=== PATIENT | male | born 1935 | race Caucasian/White ===

== ENCOUNTER 2016-08-30 12:09 | Inpatient (IN) | payer MEDICARE ==
[2016-08-30 12:43] LABS: Hematocrit 34 % (42-52); Hemoglobin 10.5 g/dl (14.0-18.0); Mean Corpuscular HGB Conc 31 g/dl (31-36); Mean Corpuscular Hemoglobin 23 pg (27-31); Mean Platelet Volume 8 um3 (7.4-10.4); Red Blood Count 4.53 10^6/ul (4.0-5.4); Red Cell Distribution Width 20 % (10.5-15); White Blood Count 8.7 10^3/ul (3.5-10.8)
[2016-08-30 12:44] LABS: Comments Flag Yes
[2016-08-30 12:45] LABS: Mean Corpuscular Volume 75 fL (80-94)
[2016-08-30 12:56] LABS: Albumin 3.5 g/dL (3.2-5.2); BUN/Creatinine Ratio 19.2 (8-20); Calcium 8.9 mg/dL (8.6-10.3); EGFR African American 29.9 (>60); EGFR Non-African American 23.2 (>60)
[2016-08-30 12:57] LABS: C Reactive Protein 57.15 mg/L (< 5.00); Globulin 3.5 g/dL (2-4); Total Bilirubin 0.5 mg/dL (0.2-1.0)
[2016-08-30 12:59] LABS: Potassium 2.7 mmol/L (3.5-5.0); Troponin I 0.07 ng/mL (<0.04)
--- NOTE | 2016-08-30 13:14 | RAD ---
INDICATION: Shortness of breath. COMPARISON: Comparison is made with a prior chest x-ray study from August 08, 2016. TECHNIQUE: AP and lateral views of the chest were obtained. FINDINGS: The heart is within normal limits in size. Mediastinal and hilar contours appear within normal limits. The lungs are underinflated. There are small bibasilar infiltrates present. No pleural effusion is seen. There is flattening of the diaphragms consistent with chronic obstructive pulmonary disease. IMPRESSION: EXPIRATORY EXAM, SMALL BIBASILAR INFILTRATES.
[2016-08-30] MEDS ORDERED: KCL 10 MEQ/50 ML IVPREMIX* 10 MEQ/50 ML BAG ONE (13:25)
[2016-08-30] MEDS ORDERED: Potassium Chlor TAB* 20 MEQ TAB.ER PO ONE (13:52)
[2016-08-30] MEDS ORDERED: KCL 10 MEQ/50 ML IVPREMIX* 10 MEQ/50 ML BAG IV SCH (14:00)
[2016-08-30] MEDS ORDERED: Levofloxacin 750 MG IVPREMIX(* 750 MG/150 ML BAG IVPB ONE (14:27)
[2016-08-30] MEDS ORDERED: Acetaminophen TAB* 325 MG PO PRN (14:52)
[2016-08-30] MEDS ORDERED: ALPRAZolam TAB* 0.5 MG PO PRN (14:54)
[2016-08-30] MEDS ORDERED: Montelukast Sodium TAB* 10 MG PO PRN (14:54)
[2016-08-30] MEDS ORDERED: Ipratropium 0.5MG/2.5ML NEB* 0.5 MG/2.5 ML NEB.SOLN INH PRN (14:54)
[2016-08-30] MEDS ORDERED: NS 0.9% 1000 ML* 1,000 ML IV SCH (15:00)
[2016-08-30] MEDS ORDERED: KCL 20 MEQ/100 ML IVPREMIX* 20 MEQ/100 ML BAG IV SCH (15:00)
[2016-08-30] MEDS ORDERED: Dextrose 50% Syringe 50 ML* 25 GM/50 ML SYRINGE IV PUSH PRN (15:06)
--- NOTE | 2016-08-30 15:40 | ED ---
Katya López Rebecca, scribed for Nicholas Linares MD on 08/30/16 at 1228 . Shortness of Breath - HPI Summary HPI Summary: Pt is an 80 y/o M BIBA who presents to ED c/o SOB. SOB began suddenly this morning and has been constant since onset. SOB characterized as mild dyspnea at rest. Sx aggravated and alleviated by nothing. Additionally c/o fevers. Son mentions that diabetic wounds on his LLE were debrided 6 days ago and today, the wound is warm. Pt is on 3L O2 per Os at home all the time. PMHx COPD, CHF, DM, hypokalemia. - History of Current Complaint Time Seen by Provider: 08/30/16 12:21 Hx Obtained From: Patient Onset/Duration: Sudden Onset, Still Present Timing: Constant Current Severity: Mild Dyspnea At: Rest Aggrevating Factors: Nothing Alleviating Factors: Nothing Associated Signs & Symptoms: Fever - Allergy/Home Medications Allergies/Adverse Reactions: Allergies Allergy/AdvReac Type Severity Reaction Status Date / Time Amoxicillin [From Augmentin] Allergy Unknown Unknown Verified 06/27/16 12:08 Reaction Details Clavulanic Acid Allergy Unknown Unknown Verified 06/27/16 12:08 [From Augmentin] Reaction Details Penicillins [PCN] Allergy Unknown Unknown Verified 06/27/16 12:08 Reaction Details Sulfa Drugs Allergy Unknown Unknown Verified 06/27/16 12:08 Reaction Details Home Medications: Home Medications Ipratropium 0.5MG/2.5ML NEB* [Atrovent 0.5 MG NEB.PAUL*] 0.5 mg INH Q6H PRN 08/30 [History Confirmed 08/30/16] predniSONE TAB* [Deltasone TAB*] 10 mg PO DAILY 08/30/16 [History Confirmed 01/09] PMH/Surg Hx/FS Hx/Imm Hx Endocrine/Hematology History: Reports: Hx Anticoagulant Therapy - COUMADIN, Hx Diabetes, Other Endocrine/Hematological Disorders - Hx hypokalemia Denies: Hx Thyroid Disease Cardiovascular History: Reports: Hx Congenital Heart Disease, Hx Congestive Heart Failure, Hx Deep Vein Thrombosis, Hx Hypertension, Hx Peripheral Vascular Disease, Other Cardiovascular Problems/Disorders - Afib, venous insufficiency Denies: Hx Pacemaker/ICD Respiratory History: Reports: Hx Asthma, Hx Chronic Obstructive Pulmonary Disease (COPD) - 3L O2 at home, Hx Pneumonia, Hx Pulmonary Embolism, Hx Sleep Apnea - bipap used at home Denies: Other Respiratory Problems/Disorders GI History: Reports: Hx Gastroesophageal Reflux Disease Denies: Other GI Disorders History: Reports: Hx Acute Renal Failure, Hx Benign Prostatic Hyperplasia - came in with catheter, Hx Chronic Renal Failure - STAGE 4, Hx Renal Disease Denies: Hx Dialysis, Other Problems/Disorders Musculoskeletal History: Reports: Hx Arthritis, Hx Back Problems - chronic back pain, Hx Gout, Other Musculoskeletal History - CHRONIC CELLULITIS Sensory History: Reports: Hx Contacts or Glasses, Hx Vision Problem, Hx Hearing Aid - REMOVED, Hx Hearing Problem Denies: Hx Deafness Opthamlomology History: Reports: Hx Contacts or Glasses, Hx Vision Problem Neurological History: Denies: Hx Dementia, Hx Seizures Psychiatric History: Reports: Hx Anxiety Denies: Hx Panic Disorder, Hx Substance Abuse, Other Psychiatric Issues/ Disorders - Surgical History Surgery Procedure, Year, and Place: SPHENOIDOTOMY 2008. CATARACT 2007. ETHMOIDECTOMY 2008. SINUSOTOMY 2008. 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 GENERAL: Patient is a well developed and nourished male with some distress secondary to the shortness of breath. However, he is able to speak in full sentences. HEAD AND FACE: Normocephalic and atraumatic. EYES: PERRLA, EOMI x 2, No injected conjunctiva. EARS: Decreased hearing. MOUTH: Dry oral mucosa. NECK: Supple, trachea is midline, no adenopathy, no JVD, no carotid bruit. CHEST: Symmetric, No intercostal or abdominal retraction, LUNGS: Bilateral basilar crackles CVS: RRR,, S1 and S2 present, no murmurs or gallops appreciated. ABDOMEN: Soft, non-tender. No signs of distention. Positive BS. No rebound, no guarding, and no masses palpated. EXTREMITIES: FROM in all major joints, no edema, no cyanosis or clubbing. NEURO: Alert and oriented x 3. No acute neurological deficits. Speech is normal and follows commands. SKIN: Dry and warm Triage Information Reviewed: Yes Vital Signs On Initial Exam: Initial Vitals Temp Pulse Resp BP Pulse Ox 98.4 F 87 20 110/59 99 08/30/16 12:10 08/30/16 12:10 08/30/16 12:10 08/30/16 12:10 08/30/16 12:10 Vital Signs Reviewed: Yes Diagnostics - Vital Signs Vital Signs Temp Pulse Resp BP Pulse Ox 08/30/16 12:10 98.4 F 87 20 110/59 99 - Laboratory Lab Results: Lab Results 08/30/16 Range/Units 12:25 WBC 8.7 (3.5-10.8) 10^3/ul RBC 4.53 (4.0-5.4) 10^6/ul Hgb 10.5 L (14.0-18.0) g/dl Hct 34 L (42-52) % MCV 75 L (80-94) fL MCH 23 L (27-31) pg MCHC 31 (31-36) g/dl RDW 20 H (10.5-15) % Plt Count 284 (150-450) 10^3/ul MPV 8 (7.4-10.4) um3 Neut % (Auto) 67.6 (38-83) % Lymph % (Auto) 10.3 L (25-47) % [place] % (Auto) 12.0 H (1-9) % Eos % (Auto) 9.6 H (0-6) % Baso % (Auto) 0.5 (0-2) % Absolute Neuts (auto) 5.9 (1.5-7.7) 10^3/ul Absolute Lymphs (auto) 0.9 L (1.0-4.8) 10^3/ul Absolute Monos (auto) 1.0 H (0-0.8) 10^3/ul Absolute Eos (auto) 0.8 H (0-0.6) 10^3/ul Absolute Basos (auto) 0 (0-0.2) 10^3/ul Absolute Nucleated RBC 0 10^3/ul Nucleated RBC % 0 Result Diagrams: 08/30/16 12:25 08/30/16 12:25 Lab Statement: Any lab studies that have been ordered have been reviewed, and results considered in the medical decision making process. - Radiology CXR Radiology Interpretation Completed By: Radiologist - EXPIRATORY EXAM, SMALL BIBASILAR INFILTRATES. - EKG 1212 Cardiac Rate: NL - 95 bpm EKG Rhythm: Atrial Fibrillation EKG Interpretation: No ST elevation Course/Dx - Course Assessment/Plan: 80 y/o M who presents to ED with a CC of SOB. Denies any CP or palpitations. Positive increase in temperature but no fever. He has Hx COPD and CHF. Test results within normal limits except for mild nemia, hypokalemia, and acute on chronic renal failure. Trop is 0.07 and c-reactive protein is 57.15. The CXR shows that the pt is having small bibasilar infiltrates, therefore pt was given levaquin. EKG shows atrial fibrillation, rate controlled. Due to elevated troponin, pt given ASA and at this time I disclosed my physical exam and findings w/ Dr. Yi who accepts pt for admission. Pt is hemodynamically stable and AxOx3. - Diagnoses Provider Diagnoses: Pneumonia, Elevated troponin, Hypokalemia - Physician Notifications Discussed Care of Patient With: Dr. Yi, hospitalist, who accepts pt for admission. Time Discussed With Above Provider: 13:08 Discharge - Discharge Plan Condition: Stable Disposition: ADMITTED TO [facility] The documentation as recorded by the Katya mercer Rebecca accurately reflects the service I personally performed and the decisions made by me, Nicholas Linares MD.
[2016-08-30 16:04] LABS: BUN/Creatinine Ratio 19.3 (8-20); Calcium 8.7 mg/dL (8.6-10.3); EGFR Non-African American 23.3 (>60); Potassium 2.8 mmol/L (3.5-5.0)
[2016-08-30 16:11] LABS: Urine Bacteria Absent (Absent); Urine Bilirubin Negative (Negative); Urine Glucose Negative (Negative); Urine Nitrite Negative (Negative)
[2016-08-30] MEDS ORDERED: KCL premix 10MEQ/50 ML x 1 TIME IV ONE (17:00)
[2016-08-30] MEDS: Azithromycin IV(*) 500 MG in NS 0.9% 250 ML* 250 ML IVPB SCH (18:08)
[2016-08-30] MEDS: Insulin GLARGINE(*) 1 UNITS UNIT SUBCUT SCH (18:13)
[2016-08-30] MEDS: Cephalexin CAP* 250 MG PO SCH ×2 (18:13→23:02)
[2016-08-30] MEDS: Insulin LISPRO* 1 UNITS UNIT SUBCUT SCH ×2 (18:13→23:24)
[2016-08-30] MEDS: Budesonide NEB* 0.25 MG/2 ML NEB.SOLN INH SCH (20:26)
[2016-08-30] MEDS ORDERED: Heparin VIAL(*) 5000 UNITS/ML VIAL (FIVE THOUSAND) SUBCUT SCH (22:00)
--- NOTE | 2016-08-30 22:17 | HP ---
HISTORY AND PHYSICAL: DATE OF ADMISSION: 08/30/16 PRIMARY CARE PHYSICIAN: Trinidad Colon MD CHIEF COMPLAINT: Shortness of breath. HISTORY OF PRESENT ILLNESS: Frank Desai is an 80-year-old male with chronic multiple comorbid conditions who was just recently discharged from our facility on 08/14/16 for left leg cellulitis. The patient had been having problems with weight loss, poor appetite, and increasing shortness of breath as well as nonproductive cough for the last couple of days. brought him to the hospital for evaluation. Here he appears to be dehydrated with acute renal failure. He also has symptoms of bronchitis and hypokalemia, which was severe with potassium of 2.7. He is going to be admitted to telemetry monitored bed. PAST MEDICAL HISTORY: 1. History of chronic atrial fibrillation, on Xarelto. 2. Diabetes type 2. 3. COPD, on oxygen at 2 L. 4. Obstructive sleep apnea, on BiPAP at night. 5. BPH. 6. History of DVT. 7. History of CHF with most recent transthoracic echocardiogram on 08/07/15 with EF noted to be greater than 65%. 8. Leg wounds noted in the left distal extremity in the recent past. The [facility]. 9. Hypertension. 10. Chronic kidney disease, stage 3, most likely due to diabetes. 11. Gout. MEDICATIONS: Included: 1. Keflex at unknown dose 4 times a day for the next couple of days. 2. BiPAP at night for obstructive sleep apnea. 3. Oxygen continuously at 2 L. 4. Prednisone 10 mg daily. 5. Terazosin 10 mg at bedtime. 6. Senna at bedtime p.r.n. 7. Xarelto 15 mg daily. 8. Potassium 20 mEq 3 times a day. 9. MiraLAX 17 g daily. 10. Morphine sulfate 20 mg/5 mL 5 to 20 mg every 1 hours p.r.n. 11. Singulair 10 mg daily. 12. Zaroxolyn 5 mg daily. 13. Mag-Ox 400 mg every other day. 14. Atrovent nebulizer 0.5 mg inhalation every 6 hours p.r.n. 15. Insulin glargine 30 units daily and in p.m. 16. Insulin Humulin R sliding scale. 17. Perforomist nebulizer 20 mcg nebulizer b.i.d. 18. Flonase nasal spray 2 sprays both nares daily. 19. Fatuma 180 mg daily. 20. Diltiazem CD 240 mg daily. 21. Vitamin D3 2000 units daily. 22. Bumex 2 mg b.i.d. 23. Budesonide 0.25 mg inhalation b.i.d. 24. Allopurinol 100 mg daily. 25. Albuterol nebulizer 4 times a day p.r.n. 26. Acetaminophen extra strength at 500 mg every 6 hours p.r.n. 27. Xanax 0.4 mg 4 times a day a p.r.n. FAMILY HISTORY: Reviewed. Father had history of throat cancer. SOCIAL HISTORY: The patient lives with his who is his surrogate. He is a do not resuscitate. He used to be on hospice in the year of 2015 at the beginning; that was discontinued in May 2016. The patient has history of no alcohol or drug use. He is currently not smoking. He has visiting nurses coming in to evaluate him on every other day. His ambulation is very limited and he ambulates with a walker 5 steps to the bedside commode and back. REVIEW OF SYSTEMS: Limited from the patient. The patient has chronically indwelling Bonilla. He had had poor appetite and lost weight about further unquantified as per . He has been complaining of shortness of breath and cough but that had been nonproductive. He denies any abdominal pain or diarrhea. He denies some chest pain. His leg was evaluated in [facility] a couple of days ago and has been healing well. He is still on Keflex. All the other remaining 14 systems were reviewed with the patient, but were otherwise negative. PHYSICAL EXAMINATION GENERAL: This is a pleasant 80-year-old male who is in no acute distress. The patient is alert and oriented x2. He does not remember the exact date, but he remembers the year of 2106. He is rather withdrawn historian and his contributes to most of the information provided. VITAL SIGNS: Blood pressure 110/59, heart rate of 87 and irregularly irregular , respiratory rate 20, oxygen saturation 99% on 4 L of oxygen, and temperature 98.4. HEENT: Head atraumatic, normocephalic. Eyes: Pupils are equal, round, and reactive to light and accommodation. Oropharynx clear. Mucosa dry. NECK: Supple. No JVD. No bruit bilaterally. RESPIRATORY: Distant breath sounds bilaterally with scattered scant wheezes in the bilateral upper lung roy. CARDIOVASCULAR: Irregularly irregular rhythm. No murmur. ABDOMEN: Protuberant, soft, and nontender. Bowel sounds are present in all quadrants. EXTREMITIES: There is bilateral chronic venous stasis edema and chronic venous stasis brownish discoloration of the skin. The patient has a small orifice of the wound of left anterior aspect of his distal leg of approximately 1 cm in diameter that is packed. There is no evidence of cellulitis. Pulses are poorly palpable, but present bilateral lower extremities on palpation of dorsalis pedis artery. There is no clubbing or cyanosis. NEUROLOGIC: Cranial nerves II through XII were grossly intact. Motor strength is 5/5 bilaterally. DIAGNOSTIC STUDIES/LABORATORY DATA: Showed sodium of 133, potassium of 2.7, chloride 95, carbon dioxide 33, BUN 51, and creatinine of 2.65. Liver functions were unremarkable. CRP of 57. Troponin of 0.07 as comparable with prior troponins of 0.06 and 0.05 in the past. Brain natriuretic peptide was 68. CBC: White blood cell count of 8.7, hemoglobin of 10.5, hematocrit of 34, MCV of 75, and platelets of 284. Urinalysis was not obtained yet. Portable chest x-ray was read by the radiologist as "expiratory exam, small bibasilar infiltrates." Patient's EKG showed atrial fibrillation with a heart rate of 95 beats per minute with incomplete right bundle-branch block and no acute ST changes. Comparing with the EKG from 08/09/16, the EKGs look similar. ASSESSMENT AND PLAN: 1. Overall decline and wellbeing clinically of this patient with multiple comorbid conditions: It appears that the patient may have a viral illness and bronchitis. The patient is going to be admitted to the hospital and placed on azithromycin for bronchitis. I do not believe that he is in chronic obstructive pulmonary disease exacerbation. His nebulizers are are going to be provided for his chronic obstructive pulmonary disease that appears stable. He does require 4 L of oxygen currently, which is going to be continued. 2. In regards to his acute renal failure and chronic kidney disease, stage 3 due to diabetes: It appears to be due to dehydration. That is going to be treated with intravenous hydration. 3. His hypokalemia is going to be treated with additional doses of potassium. 4. His leg wounds does not appear to be infected. I will continue Keflex for another 3 days. I will also ask [facility] to see patient for evaluation and repacking the wound. 5. In regards to his diabetes, the patient is going to continued on insulin sliding scale and insulin Lantus. 6. For obstructive sleep apnea, he is going to be placed on BiPAP at night. 7. For his troponin of 0.07, his EKG is unchanged and he has not been complaining of chest pain. He has a history of chronically elevated troponins in the past and no further evaluation is needed on this patient become symptomatic. 8. In regards to his atrial fibrillation, it is rate controlled on Cardizem, which is going to be continued. The patient is currently on Xarelto and I believe he should be on an agent that is more suitable for a patient with more profound renal insufficiency. The patient is going to be placed on Eliquis, so it was going to be discontinued. 9. For DVT prophylaxis, the patient is going to be continued on Eliquis as mentioned above. 10. The patient's code status is do not resuscitate and that was confirmed. 11. In regards to the patient's overall clinical status, the patient's is interested in hospice. We will ask palliative care consultation to evaluate patient. TIME SPENT: Approximately 75 minutes was spent on the admission of this patient , more than half the time was spent [id number] with the patient doing the interview and physical exam. CC: Trinidad Colon MD; Dr. Silva; Dr. Pryor* [id number]/[facility] #: [id number] [facility]
[2016-08-30] MEDS: Potassium Chlor TAB* 20 MEQ TAB.ER PO SCH (23:03)
[2016-08-30] MEDS: Terazosin CAP* 5 MG PO SCH (23:03)
[2016-08-30] MEDS: Docusate CAP* 100 MG PO SCH (23:03)
[2016-08-30] MEDS: Formoterol 20 MCG/2ML NEB (NF) 10 MCG/ML NEB.SOLN INH SCH (23:25)
[2016-08-31 05:54] LABS: Hematocrit 30 % (42-52); Hemoglobin 9.3 g/dl (14.0-18.0); Mean Corpuscular HGB Conc 31 g/dl (31-36); Mean Corpuscular Hemoglobin 24 pg (27-31); Mean Corpuscular Volume 75 fL (80-94); Mean Platelet Volume 8 um3 (7.4-10.4); Red Blood Count 3.95 10^6/ul (4.0-5.4); Red Cell Distribution Width 19 % (10.5-15)
[2016-08-31] MEDS: Insulin LISPRO* 1 UNITS UNIT SUBCUT SCH ×4 (08:21→21:47)
[2016-08-31] MEDS: Docusate CAP* 100 MG PO SCH ×2 (08:55→21:43)
[2016-08-31] MEDS: Potassium Chlor TAB* 20 MEQ TAB.ER PO SCH ×3 (08:55→21:44)
[2016-08-31] MEDS: Cephalexin CAP* 250 MG PO SCH ×4 (08:56→21:43)
[2016-08-31] MEDS: Diltiazem CD CAP* 240 MG PO SCH (08:56)
[2016-08-31] MEDS: Allopurinol TAB* 100 MG PO SCH (08:56)
[2016-08-31] MEDS: Apixaban* 2.5 MG TAB PO SCH ×2 (08:56→21:42)
[2016-08-31] MEDS ORDERED: predniSONE TAB* 10 MG PO SCH (09:00)
[2016-08-31] MEDS ORDERED: Metolazone TAB* 5 MG PO SCH (09:00)
[2016-08-31] MEDS ORDERED: Bumetanide TAB* 2 MG PO SCH (09:00)
[2016-08-31] MEDS: Polyethylene Glycol 3350* 17 GM PACKET PO SCH (09:02)
[2016-08-31] MEDS: Fluticasone NASAL SPRAY 50MCG* 16 gm SPRAY BTL BOTH NARES SCH (09:03)
[2016-08-31] MEDS: Budesonide NEB* 0.25 MG/2 ML NEB.SOLN INH SCH ×2 (09:10→21:13)
[2016-08-31] MEDS: Formoterol 20 MCG/2ML NEB (NF) 10 MCG/ML NEB.SOLN INH SCH ×2 (11:02→23:43)
[2016-08-31] MEDS: Albuterol 2.5 MG/3 ML NEB.SOL* (0.083%) INH PRN ×2 (11:38→21:23)
--- NOTE | 2016-08-31 13:19 | CONSULT ---
Palliative / Hospice Consult Ordering Provider: Myranda Yi Referal Reason: family requesting hospice evaluation - Subjective Code Status: DNR Advance Directives Location: In Chart MOLST Part A Completed: Yes - DNR Date: 08/25/15 MOLST Part E Completed:: Yes - DNI Date: 08/30/16 HCP Completed: Yes - History or Present Illness History or Present Illness: Frank Desai is an 80 yo man with multiple chronic illnesses who was admitted yesterday with bronchitis, acute renal failure secondary to deydration, hypokalemia, chronic leg wounds (followed by the wound clinic). PMH includes atrial fibrillation, DM type 2, COPD on 2L O2 at home, BALDOMERO on BiPAP at , CHF with EF >65%, CKD stage 3, gout. He was previously on hospice through [facility] in [facility] for some number of months in 2016 and was discharged. He has been hospitalized multiple times since then, 05/24 for sepsis , 07/13 for cellulitis, 08/08 for cellulitis, dehydration. This admission the pt 's requested a hospice evaluation and palliative care referral was made. This hx was obtained through my chart review. I evaluated pt in his room with his and grandson present. Pt was sitting up at the edge of the bed, eating his lunch with enthusiasm. He is KNIK and did not participate much in the conversation though he did report that he feels a bit better today, denies being SOB. His therefore gives most of the history. She says she is getting tired of all these trips to the hospital and it is hard on him. Trips to the wound center are also hard on him. She reports he is weak and SOB. He gets around the house via electric WC and can walk a few steps from bed to WC, for example. They have [facility] but no aide is available in her area although they have nursing visits 3x/week, there is no help with bathing him. The hospice nurse used to bathe him and this was very helpful. If he were to fall in the shower she wouldn't be able to stop it or to get him up. However, when I asked if they would be comfortable with not returning to the hospital they were ambivalent. Lab Values: Abnormal Lab Results 08/30/16 08/30/16 08/30/16 14:00 15:54 16:21 WBC RBC Hgb Hct MCV MCH MCHC RDW Plt Count MPV Neut % (Auto) Lymph % (Auto) [place] % (Auto) Eos % (Auto) Baso % (Auto) Absolute Neuts (auto) Absolute Lymphs (auto) Absolute Monos (auto) Absolute Eos (auto) Absolute Basos (auto) Absolute Nucleated RBC Nucleated RBC % Sodium 135 Potassium 2.8 L Chloride 93 L Carbon Dioxide 34 H Anion Gap 8 BUN 51 H Creatinine 2.64 H Est GFR ( Amer) 30.0 Est GFR (Non-Af Amer) 23.3 BUN/Creatinine Ratio 19.3 Glucose 99 POC Glucose (mg/dL) Calcium 8.7 Urine Color Yellow Urine Appearance Cloudy Urine pH 7.0 Ur Specific [place] 1.008 L Urine Protein Negative Urine Ketones Negative Urine Blood 1+ H Urine Nitrate Negative Urine Bilirubin Negative Urine Urobilinogen Negative Ur Leukocyte Esterase 2+ H Urine WBC (Auto) 2+(11-20/hpf) H Urine RBC (Auto) 1+(3-5/hpf) H Urine Bacteria Absent Urine Glucose Negative Influenza A (Rapid) Negative Influenza B (Rapid) Negative 08/30/16 08/30/16 08/31/16 17:24 21:09 05:27 WBC 8.0 RBC 3.95 L Hgb 9.3 L Hct 30 L MCV 75 L MCH 24 L MCHC 31 RDW 19 H Plt Count 248 MPV 8 Neut % (Auto) 65.1 Lymph % (Auto) 12.3 L [place] % (Auto) 10.6 H Eos % (Auto) 11.6 H Baso % (Auto) 0.4 Absolute Neuts (auto) 5.2 Absolute Lymphs (auto) 1.0 Absolute Monos (auto) 0.8 Absolute Eos (auto) 0.9 H Absolute Basos (auto) 0 Absolute Nucleated RBC 0.01 Nucleated RBC % 0.1 Sodium Potassium Chloride Carbon Dioxide Anion Gap BUN Creatinine Est GFR ( Amer) Est GFR (Non-Af Amer) BUN/Creatinine Ratio Glucose POC Glucose (mg/dL) 149 H 111 H Calcium Urine Color Urine Appearance Urine pH Ur Specific [place] Urine Protein Urine Ketones Urine Blood Urine Nitrate Urine Bilirubin Urine Urobilinogen Ur Leukocyte Esterase Urine WBC (Auto) Urine RBC (Auto) Urine Bacteria Urine Glucose Influenza A (Rapid) Influenza B (Rapid) 08/31/16 08/31/16 07:27 11:44 WBC RBC Hgb Hct MCV MCH MCHC RDW Plt Count MPV Neut % (Auto) Lymph % (Auto) [place] % (Auto) Eos % (Auto) Baso % (Auto) Absolute Neuts (auto) Absolute Lymphs (auto) Absolute Monos (auto) Absolute Eos (auto) Absolute Basos (auto) Absolute Nucleated RBC Nucleated RBC % Sodium Potassium Chloride Carbon Dioxide Anion Gap BUN Creatinine Est GFR ( Amer) Est GFR (Non-Af Amer) BUN/Creatinine Ratio Glucose POC Glucose (mg/dL) 100 127 H Calcium Urine Color Urine Appearance Urine pH Ur Specific [place] Urine Protein Urine Ketones Urine Blood Urine Nitrate Urine Bilirubin Urine Urobilinogen Ur Leukocyte Esterase Urine WBC (Auto) Urine RBC (Auto) Urine Bacteria Urine Glucose Influenza A (Rapid) Influenza B (Rapid) Laboratory Last Values WBC 8.0 10^3/ul (3.5-10.8) 08/31/16 05:27 RBC 3.95 10^6/ul (4.0-5.4) L 08/31/16 05:27 Hgb 9.3 g/dl (14.0-18.0) L 08/31/16 05:27 Hct 30 % (42-52) L 08/31/16 05:27 MCV 75 fL (80-94) L 08/31/16 05:27 MCH 24 pg (27-31) L 08/31/16 05:27 MCHC 31 g/dl (31-36) 08/31/16 05:27 RDW 19 % (10.5-15) H 08/31/16 05:27 Plt Count 248 10^3/ul (150-450) 08/31/16 05:27 MPV 8 um3 (7.4-10.4) 08/31/16 05:27 Neut % (Auto) 65.1 % (38-83) 08/31/16 05:27 Lymph % (Auto) 12.3 % (25-47) L 08/31/16 05:27 [place] % (Auto) 10.6 % (1-9) H 08/31/16 05:27 Eos % (Auto) 11.6 % (0-6) H 08/31/16 05:27 Baso % (Auto) 0.4 % (0-2) 08/31/16 05:27 Absolute Neuts (auto) 5.2 10^3/ul (1.5-7.7) 08/31/16 05:27 Absolute Lymphs (auto) 1.0 10^3/ul (1.0-4.8) 08/31/16 05:27 Absolute Monos (auto) 0.8 10^3/ul (0-0.8) 08/31/16 05:27 Absolute Eos (auto) 0.9 10^3/ul (0-0.6) H 08/31/16 05:27 Absolute Basos (auto) 0 10^3/ul (0-0.2) 08/31/16 05:27 Absolute Nucleated RBC 0.01 10^3/ul 08/31/16 05:27 Nucleated RBC % 0.1 08/31/16 05:27 INR (Anticoag Therapy) 1.87 (0.89-1.11) H 08/30/16 12:25 APTT 37.4 seconds (26.0-36.3) H 08/30/16 12:25 Sodium 135 mmol/L (133-145) 08/30/16 14:00 Potassium 2.8 mmol/L (3.5-5.0) L 08/30/16 14:00 Chloride 93 mmol/L (101-111) L 08/30/16 14:00 Carbon Dioxide 34 mmol/L (22-32) H 08/30/16 14:00 Anion Gap 8 mmol/L (2-11) 08/30/16 14:00 BUN 51 mg/dL (6-24) H 08/30/16 14:00 Creatinine 2.64 mg/dL (0.67-1.17) H 08/30/16 14:00 Est GFR ( Amer) 30.0 (>60) 08/30/16 14:00 Est GFR (Non-Af Amer) 23.3 (>60) 08/30/16 14:00 BUN/Creatinine Ratio 19.3 (8-20) 08/30/16 14:00 Glucose 99 mg/dL (70-100) 08/30/16 14:00 POC Glucose (mg/dL) 127 mg/dL (74-106) H 08/31/16 11:44 Lactic Acid 1.3 mmol/L (0.5-2.0) 08/30/16 12:25 Calcium 8.7 mg/dL (8.6-10.3) 08/30/16 14:00 Total Bilirubin 0.50 mg/dL (0.2-1.0) 08/30/16 12:25 AST 22 U/L (13-39) 08/30/16 12:25 ALT 12 U/L (7-52) 08/30/16 12:25 Alkaline Phosphatase 74 U/L (34-104) 08/30/16 12:25 Troponin I 0.07 ng/mL (<0.04) H* 08/30/16 12:25 C-Reactive Protein 57.15 mg/L (< 5.00) H 08/30/16 12:25 B-Natriuretic Peptide 68 pg/mL (-100) 08/30/16 12:25 Total Protein 7.0 g/dL (6.4-8.9) 08/30/16 12:25 Albumin 3.5 g/dL (3.2-5.2) 08/30/16 12:25 Globulin 3.5 g/dL (2-4) 08/30/16 12:25 Albumin/Globulin Ratio 1.0 (1-3) 08/30/16 12:25 Urine Color Yellow 08/30/16 15:54 Urine Appearance Cloudy 08/30/16 15:54 Urine pH 7.0 (5-9) 08/30/16 15:54 Ur Specific [place] 1.008 (1.010-1.030) L 08/30/16 15:54 Urine Protein Negative (Negative) 08/30/16 15:54 Urine Ketones Negative (Negative) 08/30/16 15:54 Urine Blood 1+ (Negative) H 08/30/16 15:54 Urine Nitrate Negative (Negative) 08/30/16 15:54 Urine Bilirubin Negative (Negative) 08/30/16 15:54 Urine Urobilinogen Negative (Negative) 08/30/16 15:54 Ur Leukocyte Esterase 2+ (Negative) H 08/30/16 15:54 Urine WBC (Auto) 2+(11-20/hpf) (Absent) H 08/30/16 15:54 Urine RBC (Auto) 1+(3-5/hpf) (Absent) H 08/30/16 15:54 Urine Bacteria Absent (Absent) 08/30/16 15:54 Urine Glucose Negative (Negative) 08/30/16 15:54 Influenza A (Rapid) Negative (Negative) 08/30/16 16:21 Influenza B (Rapid) Negative (Negative) 08/30/16 16:21 - Objective Active Medications: Acetaminophen (Tylenol Tab*) 650 mg PO Q4H PRN PRN Reason: FEVER/PAIN Albuterol (Ventolin 2.5 Mg/3 Ml Neb.Soco*) 2.5 mg INH QID PRN PRN Reason: SHORTNESS OF BREATH Last Admin: 08/31/16 11:38 Dose: 2.5 mg Allopurinol (Zyloprim Tab*) 100 mg PO DAILY [facility] Last Admin: 08/31/16 08:56 Dose: 100 mg Alprazolam (Xanax Tab*) 0.5 mg PO QID PRN PRN Reason: TREMORS Apixaban (Eliquis) 2.5 mg PO BID [facility] Last Admin: 08/31/16 08:56 Dose: 2.5 mg Budesonide (Pulmicort Neb*) 0.25 mg INH BID [facility] Last Admin: 08/31/16 09:10 Dose: 0.25 mg Bumetanide (Bumex Tab*) 2 mg PO BID [facility] Last Admin: 08/31/16 08:55 Dose: 2 mg Cephalexin HCl (Keflex Cap*) 250 mg PO QID [facility] Stop: 09/01/16 23:59 Last Admin: 08/31/16 08:56 Dose: 250 mg Dextrose (D50w Syringe 50 Ml*) 12.5 gm IV PUSH .FOR FS < 60 - SS PRN PRN Reason: FS < 60 Diltiazem HCl (Cardizem Cd Cap*) 240 mg PO QAM [facility] Last Admin: 08/31/16 08:56 Dose: 240 mg Docusate Sodium (Colace Cap*) 100 mg PO BID [facility] Last Admin: 08/31/16 08:55 Dose: 100 mg Fluticasone Propionate (Flonase Nasal [place] 50mcg*) 2 spray BOTH NARES DAILY [facility] Last Admin: 08/31/16 09:03 Dose: 2 spray Formoterol Fumarate (Perforomist Neb.Soln*(Nf)) 20 mcg INH BID [facility] Last Admin: 08/31/16 11:02 Dose: Not Given Azithromycin 500 mg/ Sodium (Chloride) 250 mls @ 250 mls/hr IVPB Q24H [facility] Last Admin: 08/30/16 18:08 Dose: 250 mls/hr Insulin Glargine (Lantus(*)) 30 units SUBCUT QPM [facility] Last Admin: 08/30/16 18:13 Dose: 30 units Insulin Human Lispro (Humalog*) 0 units SUBCUT ACHS [facility] PRN Reason: Protocol Last Admin: 08/31/16 13:02 Dose: Not Given Ipratropium [place] (Atrovent 0.5 Mg Neb.Soco*) 0.5 mg INH Q6H PRN PRN Reason: SOB/WHEEZING Magnesium Oxide (Magox 400 Tab*) 400 mg PO EVERY OTHER DAY [facility] Metolazone (Zaroxolyn Tab*) 5 mg PO QAM [facility] Last Admin: 08/31/16 08:56 Dose: 5 mg Montelukast Sodium (Singulair Tab*) 10 mg PO DAILY PRN PRN Reason: Allergy Symptoms Polyethylene Glycol/Electrolytes (Miralax*) 17 gm PO DAILY [facility] Last Admin: 08/31/16 09:02 Dose: 17 gm Potassium Chloride (Klor Con Er Tab*) 20 meq PO TID [facility] Last Admin: 08/31/16 08:55 Dose: 20 meq Prednisone (Deltasone Tab*) 10 mg PO DAILY [facility] Last Admin: 08/31/16 08:56 Dose: 10 mg Terazosin HCl (Hytrin Cap*) 10 mg PO BEDTIME [facility] Last Admin: 08/30/16 23:03 Dose: 10 mg Vital Signs: Vital Signs: Temp Pulse Resp BP Pulse Ox 99.1 F 84 26 122/63 96 08/31/16 07:41 08/31/16 11:40 08/31/16 11:40 08/31/16 07:41 08/31/16 11:40 Patient Weight: Weight 243 lb 4.8 oz Intake and Output: Intake & Output 08/29/16 08/30/16 08/31/16 09/01/16 06:59 06:59 06:59 06:59 Intake Total 2254 360 Output Total 425 Balance 1829 360 Weight 243 lb 4.8 oz Intake: IV Fluids 264 Potassium 64 IVPB 1290 ABX - AZITHROMYCIN 250 NS (0.9%) 990 Potassium 50 Oral 700 360 Output: [place] 425 Other: # Bowel Movements 0 ADLs: Meal Record Start: 08/30/16 16: 31 Freq: DAILY@0900,1400,1800 Status: Active Created 08/30/16 16:31 System (Rec: 08/30/16 16:31 System [id number]) Document 08/30/16 18:00 [id number] (Rec: 08/30/16 19:30 [id number]) Document 08/31/16 09:00 [id number] (Rec: 08/31/16 10:18 [id number]) Intake and Output Start: 08/30/16 12: 33 Freq: Status: Active Created 08/30/16 12:33 System (Rec: 08/30/16 12:33 System [id number]) Intake and Output Start: 08/30/16 16: 31 Freq: DAILY@0600,1400,2200 Status: Active Created 08/30/16 16:31 System (Rec: 08/30/16 16:31 System [id number]) Document 08/30/16 22:06 [id number] (Rec: 08/30/16 22:07 [id number] [id number]) Document 08/31/16 06:00 [id number] (Rec: 08/31/16 06:04 [id number]) General Impression: WNWD elderly man sitting at the edge of the bed, alert but vague, eating lunch. Head: Normal Eyes: No Scleral Icterus Ears/Nose/Mouth/Throat: Mucous Membranes Moist Neck: NL Appearance and Movements; NL JVP Cardiovascular: RRR Respiratory: - - Visibly dyspneic with eating; Lungs mildly diminished, occasional wheezes agustín Extremities: - - BLE edema, LL cellulitic - Assessment Assessment: 80 yo man with multiple chronic illnesses who was admitted yesterday with bronchitis, acute renal failure secondary to deydration, hypokalemia, chronic leg wounds (followed by the wound clinic). PMH includes atrial fibrillation, DM type 2, COPD on 2L O2 at home, BALDOMERO on BiPAP at HS, CHF with EF >65%, CKD stage 3 , gout. He has had almost monthly hospital admissions for the last 4 mos and is clearly chronically ill. I believe he is borderline appropriate for hospice. He would be an excellent candidate for an outpatient palliative program if such a thing existed. At this point I believe infection is the most likely thing to be a terminal event for him, though currently he has no infective process. They would have to agree not to hospitalize pt and they have not yet made this decision. - Plan Consult Plan (MU): Palliative Plan: With pt and his 's permission, I contacted [facility] and shared my opinion with them and requested an informational and evaluation after pt is discharged home next week. This will give them time to consider their goals of care and for the hospice to decide whether or not they would accept pt back or not. Will not plan to follow pt with you but the team will be happy to revisit if asked. Thank you for the referral. - Time On Unit Date of Evaluation: 08/31/16 Hospice Consult Time in: 12:20 Hospice Consult Time Out: 13:20 Hospice Consult Time Total: 60 > 50% of Time Spend In Counseling or Coordinating Care: Yes
[2016-08-31 14:49] LABS: BUN/Creatinine Ratio 18.5 (8-20); Calcium 8.6 mg/dL (8.6-10.3); EGFR African American 34.8 (>60); EGFR Non-African American 27.1 (>60); Potassium 3.6 mmol/L (3.5-5.0)
--- NOTE | 2016-08-31 15:11 | PN ---
Subjective Date of Service: 08/31/16 Interval History: Seen with at bedside remains drowsy but wakes easily and interacts +cough, non productive. Poor appetite no pain Objective Active Medications: Acetaminophen (Tylenol Tab*) 650 mg PO Q4H PRN PRN Reason: FEVER/PAIN Albuterol (Ventolin 2.5 Mg/3 Ml Neb.Soco*) 2.5 mg INH QID PRN PRN Reason: SHORTNESS OF BREATH Last Admin: 08/31/16 11:38 Dose: 2.5 mg Allopurinol (Zyloprim Tab*) 100 mg PO DAILY [facility] Last Admin: 08/31/16 08:56 Dose: 100 mg Alprazolam (Xanax Tab*) 0.5 mg PO QID PRN PRN Reason: TREMORS Apixaban (Eliquis) 2.5 mg PO BID [facility] Last Admin: 08/31/16 08:56 Dose: 2.5 mg Budesonide (Pulmicort Neb*) 0.25 mg INH BID [facility] Last Admin: 08/31/16 09:10 Dose: 0.25 mg Bumetanide (Bumex Tab*) 2 mg PO DAILY [facility] Cephalexin HCl (Keflex Cap*) 250 mg PO QID [facility] Stop: 09/01/16 23:59 Last Admin: 08/31/16 14:37 Dose: 250 mg Dextrose (D50w Syringe 50 Ml*) 12.5 gm IV PUSH .FOR FS < 60 - SS PRN PRN Reason: FS < 60 Diltiazem HCl (Cardizem Cd Cap*) 240 mg PO QAM [facility] Last Admin: 08/31/16 08:56 Dose: 240 mg Docusate Sodium (Colace Cap*) 100 mg PO BID [facility] Last Admin: 08/31/16 08:55 Dose: 100 mg Fluticasone Propionate (Flonase Nasal [place] 50mcg*) 2 spray BOTH NARES DAILY [facility] Last Admin: 08/31/16 09:03 Dose: 2 spray Formoterol Fumarate (Perforomist Neb.Soln*(Nf)) 20 mcg INH BID [facility] Last Admin: 08/31/16 11:02 Dose: Not Given Azithromycin 500 mg/ Sodium (Chloride) 250 mls @ 250 mls/hr IVPB Q24H [facility] Last Admin: 08/30/16 18:08 Dose: 250 mls/hr Insulin Glargine (Lantus(*)) 30 units SUBCUT QPM [facility] Last Admin: 08/30/16 18:13 Dose: 30 units Insulin Human Lispro (Humalog*) 0 units SUBCUT ACHS [facility] PRN Reason: Protocol Last Admin: 08/31/16 13:02 Dose: Not Given Ipratropium [place] (Atrovent 0.5 Mg Neb.Soco*) 0.5 mg INH Q6H PRN PRN Reason: SOB/WHEEZING Magnesium Oxide (Magox 400 Tab*) 400 mg PO EVERY OTHER DAY [facility] Methylprednisolone Sodium Succinate (Solu-Medrol*) 40 mg IV Q8H [facility] Montelukast Sodium (Singulair Tab*) 10 mg PO DAILY PRN PRN Reason: Allergy Symptoms Polyethylene Glycol/Electrolytes (Miralax*) 17 gm PO DAILY [facility] Last Admin: 08/31/16 09:02 Dose: 17 gm Potassium Chloride (Klor Con Er Tab*) 20 meq PO TID [facility] Last Admin: 08/31/16 14:37 Dose: 20 meq Terazosin HCl (Hytrin Cap*) 10 mg PO BEDTIME [facility] Last Admin: 08/30/16 23:03 Dose: 10 mg Vital Signs 08/30/16 08/30/16 08/30/16 15:30 15:54 16:00 Temperature 97.5 F Pulse Rate 83 81 74 Respiratory 19 20 24 Rate Blood Pressure 143/65 143/65 122/67 (mmHg) O2 Sat by Pulse 98 97 Oximetry 08/30/16 08/30/16 08/30/16 16:30 19:15 19:18 Temperature 97.5 F Pulse Rate 76 78 Respiratory 22 18 20 Rate Blood Pressure 127/64 109/60 (mmHg) O2 Sat by Pulse 100 99 Oximetry 08/30/16 08/30/16 08/30/16 19:35 20:00 20:27 Temperature 98.8 F Pulse Rate 77 74 Respiratory 22 22 22 Rate Blood Pressure 134/87 (mmHg) O2 Sat by Pulse 96 98 Oximetry 08/30/16 08/31/16 08/31/16 23:41 03:49 03:51 Temperature 97.7 F 98.4 F Pulse Rate 79 80 83 Respiratory 20 20 Rate Blood Pressure 121/63 91/58 111/58 (mmHg) O2 Sat by Pulse 99 98 100 Oximetry 08/31/16 08/31/16 08/31/16 07:41 08:00 09:11 Temperature 99.1 F Pulse Rate 82 98 Respiratory 18 18 26 Rate Blood Pressure 122/63 (mmHg) O2 Sat by Pulse 100 96 Oximetry 08/31/16 11:40 Temperature Pulse Rate 84 Respiratory 26 Rate Blood Pressure (mmHg) O2 Sat by Pulse 96 Oximetry Oxygen Devices in Use Now: Nasal Cannula - 3L Appearance: sitting up in bed, lethargic, NAD Eyes: No Scleral Icterus, PERRLA Ears/Nose/Mouth/Throat: - - dry mm Neck: NL Appearance and Movements; NL JVP, Trachea Midline Respiratory: Symmetrical Chest Expansion and Respiratory Effort, - - audible wheeze without stethescope, expiratory wheeze and diffuse rhonchi Cardiovascular: RRR Abdominal: NL Sounds; No Tenderness; No Distention, No Hepatosplenomegaly Extremities: - - 2+ le edema Skin: - - pretibial erythema, small left tibial wound packed Neurological: - - AOx1 to self Result Diagrams: 08/31/16 05:27 08/31/16 14:21 Additional Lab and Data: Lab Results 08/30/16 Range/Units 12:25 WBC 8.7 (3.5-10.8) 10^3/ul RBC 4.53 (4.0-5.4) 10^6/ul Hgb 10.5 L (14.0-18.0) g/dl Hct 34 L (42-52) % MCV 75 L (80-94) fL MCH 23 L (27-31) pg MCHC 31 (31-36) g/dl RDW 20 H (10.5-15) % Plt Count 284 (150-450) 10^3/ul MPV 8 (7.4-10.4) um3 Neut % (Auto) 67.6 (38-83) % Lymph % (Auto) 10.3 L (25-47) % Frio % (Auto) 12.0 H (1-9) % Eos % (Auto) 9.6 H (0-6) % Baso % (Auto) 0.5 (0-2) % Absolute Neuts (auto) 5.9 (1.5-7.7) 10^3/ul Absolute Lymphs (auto) 0.9 L (1.0-4.8) 10^3/ul Absolute Monos (auto) 1.0 H (0-0.8) 10^3/ul Absolute Eos (auto) 0.8 H (0-0.6) 10^3/ul Absolute Basos (auto) 0 (0-0.2) 10^3/ul Absolute Nucleated RBC 0 10^3/ul Nucleated RBC % 0 Microbiology and Other Data: Microbiology 08/30/16 14:04 Aerobic Blood Culture - Preliminary Blood Venous No Growth Day 1 Anaerobic Blood Culture - Preliminary No Growth Day 1 08/31/16 01:50 Gram Stain - Final Sputum 08/30/16 16:00 Influenza Types A,B Antigen (ROSANNE) - Final Nasal Specimen received for Influenza A/B Molecular testing Assess/Plan/Problems-Billing Assessment: 80 yo M h/o chf per report, chronic respiratory failure with h/o COPD per report , afib, recent admit with LLE cellulitis returning with increased SOB and failure to thrive at home - Patient Problems (1) Shortness of breath Comment: Suspect COPD exacerbation 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 Notable eosinophilia on CBC Check CT chest non/con IV steroids q8hrs hold PO steroids c/w keflex and azithro (2) Chronic respiratory failure Comment: home oxygen (3) PIERRE (acute kidney injury) Status: Acute Comment: on CKD. Decrease bumex from BID to once daily stop metolazone hsa had decreased PO intake (4) Hypokalemia Comment: In setting of volume contraction and multiple diuretics decrease bumex and stop metolazone replete PO TID and suppliment IV as needed (5) Afib Comment: Continue Cardizem and renally dosed Eliquis (6) DVT prophylaxis SNOMED Code(s): 149106673 Comment: Eliquis
--- NOTE | 2016-08-31 16:21 | RAD ---
INDICATION: Respiratory failure. History of COPD and CHF. COMPARISON: August 30, 2016 chest radiograph and August 17, 2013 CT. TECHNIQUE: Multidetector CT images were obtained from the lung apices to the upper abdomen. Evaluation of the viscera is limited without IV contrast. REPORT: Negative for central endobronchial lesions. Subsegmental atelectasis at the inferior lingula and basilar segments of the LEFT lower lobe with mild cardiomegaly and tortuous descending thoracic aorta resulting in volume loss. No alveolar consolidation concerning for pneumonia. Small calcified granuloma at the central LEFT upper lobe. No suspicious focal pulmonary lesion. Negative for pleural effusions. Negative for pneumothorax. Negative for thoracic lymphadenopathy. Mild cardiomegaly. Negative for pericardial effusion. Limited images through the upper abdomen are remarkable for partial fatty involution of the pancreas and a small splenule at the posterior medial margin of the spleen. Negative for suspicious osseous lesions or fracture. Multilevel segmental ossification of the anterior longitudinal ligament of the thoracic spine consistent with Diffuse Idiopathic Skeletal Hyperostosis (DISH). IMPRESSION: Mild LEFT basilar atelectasis. No compelling evidence for pneumonia or pulmonary edema.
[2016-08-31] MEDS: methylPREDNISolone SOD 40 MG* 1 ML VIAL IV SCH ×2 (16:38→23:52)
[2016-08-31] MEDS: Azithromycin IV(*) 500 MG in NS 0.9% 250 ML* 250 ML IVPB SCH (17:09)
[2016-08-31] MEDS: Insulin GLARGINE(*) 1 UNITS UNIT SUBCUT SCH (17:48)
[2016-08-31] MEDS: Azithromycin IV(*) 250 MG in NS 0.9% 250 ML* 250 ML IVPB SCH (17:59)
[2016-08-31] MEDS: Terazosin CAP* 5 MG PO SCH (21:45)
[2016-09-01 05:31] LABS: Comments Flag Yes; Hematocrit 32 % (42-52); Hemoglobin 9.7 g/dl (14.0-18.0); Mean Corpuscular HGB Conc 31 g/dl (31-36); Mean Corpuscular Hemoglobin 23 pg (27-31); Mean Corpuscular Volume 75 fL (80-94); Mean Platelet Volume 8 um3 (7.4-10.4); Red Blood Count 4.23 10^6/ul (4.0-5.4); Red Cell Distribution Width 19 % (10.5-15); White Blood Count 8.1 10^3/ul (3.5-10.8)
[2016-09-01 05:46] LABS: BUN/Creatinine Ratio 19.4 (8-20); Calcium 8.5 mg/dL (8.6-10.3); EGFR African American 37.8 (>60); EGFR Non-African American 29.4 (>60); Potassium 3.7 mmol/L (3.5-5.0)
[2016-09-01 05:54] LABS: Troponin I 0.08 ng/mL (<0.04)
[2016-09-01] MEDS: Bumetanide TAB* 2 MG PO SCH (08:29)
[2016-09-01] MEDS: Allopurinol TAB* 100 MG PO SCH (08:29)
[2016-09-01] MEDS: Apixaban* 2.5 MG TAB PO SCH ×2 (08:29→20:25)
[2016-09-01] MEDS: Diltiazem CD CAP* 240 MG PO SCH (08:29)
[2016-09-01] MEDS: Docusate CAP* 100 MG PO SCH ×2 (08:30→20:24)
[2016-09-01] MEDS: Potassium Chlor TAB* 20 MEQ TAB.ER PO SCH ×3 (08:30→20:23)
[2016-09-01] MEDS: Cephalexin CAP* 250 MG PO SCH ×4 (08:30→20:25)
[2016-09-01] MEDS: Magnesium Oxide TAB* 400 MG PO SCH (08:30)
[2016-09-01] MEDS: Polyethylene Glycol 3350* 17 GM PACKET PO SCH (08:33)
[2016-09-01] MEDS: methylPREDNISolone SOD 40 MG* 1 ML VIAL IV SCH ×3 (08:35→23:34)
[2016-09-01] MEDS: Fluticasone NASAL SPRAY 50MCG* 16 gm SPRAY BTL BOTH NARES SCH (08:35)
[2016-09-01] MEDS: Insulin LISPRO* 1 UNITS UNIT SUBCUT SCH ×4 (08:36→20:26)
[2016-09-01] MEDS: Budesonide NEB* 0.25 MG/2 ML NEB.SOLN INH SCH ×2 (09:14→20:29)
[2016-09-01] MEDS: Formoterol 20 MCG/2ML NEB (NF) 10 MCG/ML NEB.SOLN INH SCH (11:29)
--- NOTE | 2016-09-01 15:54 | PN ---
Subjective Date of Service: 09/01/16 Interval History: Seen with at bedside more awake and interactive today does not feel breathing is any better Appetite improved and eating more denies CP Objective Active Medications: Acetaminophen (Tylenol Tab*) 650 mg PO Q4H PRN PRN Reason: FEVER/PAIN Albuterol/Ipratropium (Duoneb Neb.Soco*) 1 neb INH [id number] AWAKE [facility] Allopurinol (Zyloprim Tab*) 100 mg PO DAILY [facility] Last Admin: 09/01/16 08:29 Dose: 100 mg Alprazolam (Xanax Tab*) 0.5 mg PO QID PRN PRN Reason: TREMORS Last Admin: 08/31/16 23:52 Dose: 0.5 mg Apixaban (Eliquis) 2.5 mg PO BID [facility] Last Admin: 09/01/16 08:29 Dose: 2.5 mg Budesonide (Pulmicort Neb*) 0.25 mg INH BID [facility] Last Admin: 09/01/16 09:14 Dose: 0.25 mg Bumetanide (Bumex Tab*) 2 mg PO DAILY [facility] Last Admin: 09/01/16 08:29 Dose: 2 mg Cephalexin HCl (Keflex Cap*) 250 mg PO QID [facility] Stop: 09/01/16 23:59 Last Admin: 09/01/16 12:23 Dose: 250 mg Dextrose (D50w Syringe 50 Ml*) 12.5 gm IV PUSH .FOR FS < 60 - SS PRN PRN Reason: FS < 60 Diltiazem HCl (Cardizem Cd Cap*) 240 mg PO QAM [facility] Last Admin: 09/01/16 08:29 Dose: 240 mg Docusate Sodium (Colace Cap*) 100 mg PO BID [facility] Last Admin: 09/01/16 08:30 Dose: 100 mg Fluticasone Propionate (Flonase Nasal [place] 50mcg*) 2 spray BOTH NARES DAILY [facility] Last Admin: 09/01/16 08:35 Dose: 2 spray Azithromycin 250 mg/ Sodium (Chloride) 250 mls @ 250 mls/hr IVPB Q24H [facility] Last Admin: 08/31/16 17:59 Dose: Not Given Insulin Glargine (Lantus(*)) 30 units SUBCUT QPM [facility] Last Admin: 08/31/16 17:48 Dose: 30 units Insulin Human Lispro (Humalog*) 0 units SUBCUT ACHS [facility] PRN Reason: Protocol Last Admin: 09/01/16 12:22 Dose: 4 unit Magnesium Oxide (Magox 400 Tab*) 400 mg PO EVERY OTHER DAY [facility] Last Admin: 09/01/16 08:30 Dose: 400 mg Methylprednisolone Sodium Succinate (Solu-Medrol*) 40 mg IV Q8H [facility] Last Admin: 09/01/16 08:35 Dose: 40 mg Montelukast Sodium (Singulair Tab*) 10 mg PO DAILY PRN PRN Reason: Allergy Symptoms Polyethylene Glycol/Electrolytes (Miralax*) 17 gm PO DAILY [facility] Last Admin: 09/01/16 08:33 Dose: 17 gm Potassium Chloride (Klor Con Er Tab*) 20 meq PO TID [facility] Last Admin: 09/01/16 14:02 Dose: 20 meq Terazosin HCl (Hytrin Cap*) 10 mg PO BEDTIME [facility] Last Admin: 08/31/16 21:45 Dose: 10 mg Vital Signs 08/31/16 08/31/16 08/31/16 19:16 20:00 21:14 Temperature Pulse Rate 73 71 Respiratory 18 18 23 Rate Blood Pressure 126/68 (mmHg) O2 Sat by Pulse 100 99 Oximetry 08/31/16 08/31/16 08/31/16 21:24 23:42 23:52 Temperature 97.7 F Pulse Rate 71 83 Respiratory 24 24 20 Rate Blood Pressure 141/76 (mmHg) O2 Sat by Pulse 94 98 Oximetry 09/01/16 09/01/16 09/01/16 01:52 03:31 07:29 Temperature 98.9 F 97.6 F Pulse Rate 80 69 Respiratory 19 19 16 Rate Blood Pressure 133/73 141/70 (mmHg) O2 Sat by Pulse 97 98 Oximetry 09/01/16 09/01/16 09/01/16 08:00 09:16 11:20 Temperature 97.4 F Pulse Rate 83 85 Respiratory 18 20 18 Rate Blood Pressure 134/57 (mmHg) O2 Sat by Pulse 98 97 Oximetry 09/01/16 15:11 Temperature Pulse Rate 79 Respiratory 20 Rate Blood Pressure 126/67 (mmHg) O2 Sat by Pulse 100 Oximetry Oxygen Devices in Use Now: Nasal Cannula - 3L Appearance: talks in complete sentences, NAD Eyes: No Scleral Icterus, PERRLA Ears/Nose/Mouth/Throat: Clear Oropharnyx, Mucous Membranes Moist Neck: NL Appearance and Movements; NL JVP, Trachea Midline Respiratory: Symmetrical Chest Expansion and Respiratory Effort, - - wheeze throughout b/l Cardiovascular: RRR Abdominal: NL Sounds; No Tenderness; No Distention, No Hepatosplenomegaly Extremities: - - 1+ LE edema Neurological: Alert and Oriented x 3 Result Diagrams: 09/01/16 05:11 09/01/16 05:11 Additional Lab and Data: Lab Results 08/30/16 Range/Units 12:25 WBC 8.7 (3.5-10.8) 10^3/ul RBC 4.53 (4.0-5.4) 10^6/ul Hgb 10.5 L (14.0-18.0) g/dl Hct 34 L (42-52) % MCV 75 L (80-94) fL MCH 23 L (27-31) pg MCHC 31 (31-36) g/dl RDW 20 H (10.5-15) % Plt Count 284 (150-450) 10^3/ul MPV 8 (7.4-10.4) um3 Neut % (Auto) 67.6 (38-83) % Lymph % (Auto) 10.3 L (25-47) % [place] % (Auto) 12.0 H (1-9) % Eos % (Auto) 9.6 H (0-6) % Baso % (Auto) 0.5 (0-2) % Absolute Neuts (auto) 5.9 (1.5-7.7) 10^3/ul Absolute Lymphs (auto) 0.9 L (1.0-4.8) 10^3/ul Absolute Monos (auto) 1.0 H (0-0.8) 10^3/ul Absolute Eos (auto) 0.8 H (0-0.6) 10^3/ul Absolute Basos (auto) 0 (0-0.2) 10^3/ul Absolute Nucleated RBC 0 10^3/ul Nucleated RBC % 0 Microbiology and Other Data: Microbiology 08/30/16 14:04 Aerobic Blood Culture - Preliminary Blood Venous No Growth Day 1 Anaerobic Blood Culture - Preliminary No Growth Day 1 08/31/16 01:50 Gram Stain - Final Sputum 08/30/16 16:00 Influenza Types A,B Antigen (ROSANNE) - Final Nasal Specimen received for Influenza A/B Molecular testing Assess/Plan/Problems-Billing Assessment: 80 yo M h/o chf per report, chronic respiratory failure with h/o COPD per report , afib, recent admit with LLE cellulitis returning with increased SOB and failure to thrive at home - Patient Problems (1) Shortness of breath Comment: Suspect COPD exacerbation 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 Notable eosinophilia on CBC CT chest unremarkable IV steroids q8hrs hold PO steroids start duoneb standing given continued extrensive wheeze c/w keflex and azithro (2) Chronic respiratory failure Comment: home oxygen (3) PIERRE (acute kidney injury) Status: Acute Comment: on CKD. Decrease bumex from BID to once daily 08/31/16 stop metolazone 08/31/16 has had decreased PO intake priorto hospital stay (4) Hypokalemia Comment: In setting of volume contraction and multiple diuretics decrease bumex and stop metolazone replete PO TID and suppliment IV as needed (5) Afib Comment: Continue Cardizem and renally dosed Eliquis (6) DVT prophylaxis Comment: Eliquis
[2016-09-01] MEDS: Albuterol/Ipratropium NEB.SOL* Albuterol 2.5 MG/Ipratropium 0.5 MG 3 ML INH SCH ×3 (16:09→22:41)
[2016-09-01] MEDS: Azithromycin IV(*) 250 MG in NS 0.9% 250 ML* 250 ML IVPB SCH (16:24)
[2016-09-01] MEDS: Insulin GLARGINE(*) 1 UNITS UNIT SUBCUT SCH (17:24)
[2016-09-01] MEDS: Terazosin CAP* 5 MG PO SCH (20:25)
[2016-09-02] MEDS: Albuterol/Ipratropium NEB.SOL* Albuterol 2.5 MG/Ipratropium 0.5 MG 3 ML INH SCH ×4 (03:00→16:18)
[2016-09-02 05:32] LABS: BUN/Creatinine Ratio 27.6 (8-20); Calcium 8.4 mg/dL (8.6-10.3); EGFR African American 45.2 (>60); EGFR Non-African American 35.2 (>60); Potassium 3.5 mmol/L (3.5-5.0)
[2016-09-02 05:43] LABS: Troponin I 0.07 ng/mL (<0.04)
[2016-09-02] MEDS: Budesonide NEB* 0.25 MG/2 ML NEB.SOLN INH SCH ×2 (07:48→20:58)
[2016-09-02] MEDS: Fluticasone NASAL SPRAY 50MCG* 16 gm SPRAY BTL BOTH NARES SCH (09:55)
[2016-09-02] MEDS: Bumetanide TAB* 2 MG PO SCH (09:55)
[2016-09-02] MEDS: Docusate CAP* 100 MG PO SCH ×2 (09:55→22:55)
[2016-09-02] MEDS: Potassium Chlor TAB* 20 MEQ TAB.ER PO SCH ×3 (09:55→22:54)
[2016-09-02] MEDS: Apixaban* 2.5 MG TAB PO SCH ×2 (09:55→22:54)
[2016-09-02] MEDS: Allopurinol TAB* 100 MG PO SCH (09:55)
[2016-09-02] MEDS: Diltiazem CD CAP* 240 MG PO SCH (09:55)
[2016-09-02] MEDS: methylPREDNISolone SOD 40 MG* 1 ML VIAL IV SCH ×3 (09:55→22:55)
[2016-09-02] MEDS: Polyethylene Glycol 3350* 17 GM PACKET PO SCH (09:56)
[2016-09-02] MEDS: Insulin LISPRO* 1 UNITS UNIT SUBCUT SCH ×4 (09:56→22:56)
[2016-09-02] MEDS ORDERED: Codeine TAB* 15 MG PO ONE ×2 (10:33)
--- NOTE | 2016-09-02 10:41 | ECHO ---
Patient: KEVIN VINES Rec#: [id number] : 1935 Date: 09/02/2016 Age: 80y Height: 177.8 cm / 70.0 in Weight: 105.23 kg / 231.9 lbs Sex: M BSA: 2.22 Room#: 445 Admit Date#: 08/30/2016 Type: Inpatient Referring: Pascual Moulton MD Reading: Jeremiah Vargas MD [employer] Manager: Radha Vasquez YANELY CC: Trinidad Colon MD Transthoracic Echocardiogram Indication: ACS/a-fib/COPD BP: 122/48 HR: 91 Rhythm: A-Fib Findings History: A-fib,DM,COPD with home oxygen,BALDOMERO with Bipap,DVT,HTN,CKD stage III,gout. Technical Comments: The study is technically limited due to the patient's history of COPD. Completed at 0902. Left Ventricle: The left ventricular chamber size is normal. Septal wall hypertrophy is observed. Global left ventricular wall motion and contractility are within normal limits. There is normal left ventricular systolic function. The estimated ejection fraction is 55-60%. The assessment of diastolic function is non-diagnostic. Left Atrium: The left atrium is mildly dilated. Right Ventricle: The right ventricular cavity size is normal. The right ventricular global systolic function is normal. Right Atrium: The right atrial cavity size is normal. Aortic Valve: The aortic valve is trileaflet. There is no evidence of aortic regurgitation. There is no evidence of aortic stenosis. Mitral Valve: The mitral valve leaflets are mildly thickened. There is a trace of mitral regurgitation. There is no evidence of mitral stenosis. Tricuspid Valve: The tricuspid valve leaflets are normal. There is mild to moderate tricuspid regurgitation. The right ventricular systolic pressure is estimated to be 45-50 mmHg. There is evidence of mild pulmonary hypertension. There is no tricuspid stenosis. Pulmonic Valve: The pulmonic valve appears normal. There is trace to mild pulmonic regurgitation. There is no pulmonic stenosis. Pericardium: A pericardial fat pad is visualized. Aorta: There is no dilatation of the ascending aorta. There is no dilatation of the aortic arch. There is mild dilatation of the aortic root. Pulmonary Artery: The main pulmonary artery appears normal. Venous: The inferior vena cava is dilated. There is an approximate 50% respiratory change in the inferior vena cava dimension. Conclusions Pt in A fib during study Global left ventricular wall motion and contractility are within normal limits. There is normal left ventricular systolic function. The estimated ejection fraction is 55-60%. The right ventricular global systolic function is normal. There is no evidence of aortic regurgitation. There is a trace of mitral regurgitation. There is mild to moderate tricuspid regurgitation. There is evidence of mild pulmonary hypertension. Compared to study of 08/26/15, there is little change Measurements Name Value Normal Range RVIDd (AP) 2D 3.4 cm (0.9 - 2.6) RVDdMajor (2D) 4 cm (2.2 - 4.4) RAd ISD 4CH 5.5 cm (3.4 - 4.9) RA (A4C)W 4.1 cm (2.9 - 4.6) IVSd (2D) 1.2 cm (0.6 - 1) LVPWd (2D) 1 cm (0.6 - 1) LVIDd (2D) 4.2 cm (3.6 - 5.4) LVIDs (2D) 3 cm - LV FS (2D) 30 % (25 - 45) Aortic Annulus 2 cm (1.4 - 2.6) Ao root diameter (2D) 3.6 cm (2.1 - 3.5) Ascending Ao 3.4 cm (2.1 - 3.4) Aortic arch 2.4 cm (1.8 - 3.4) Descending Ao 0.7 cm - LA dimension (AP) 2D 4.1 cm (2.3 - 3.8) LAd ISD 4CH 6.4 cm (2.9 - 5.3) LA ISD 4CH W 4 cm (2.5 - 4.5) Name Value Normal Range LA ESV SP 4CH (A/L) 55 ml - LA ESV SP 2CH (A/L) 74 ml - LA ESV BP (A/L) 64 ml - LA ESV BP (A/L) index 28.81 ml/m2 - LA ESV SP 4CH (MOD) 54 ml - LA ESV SP 2CH (MOD) 73 ml - Name Value Normal Range MV E-wave Vmax 1.3 m/sec - MV deceleration time 159 msec - LV septal e' Vmax 0.13 m/sec - LV lateral e' Vmax 0.12 m/sec - LV E:e' septal ratio 10 ratio - LV E:e' lateral ratio 10.83 ratio - Name Value Normal Range AV Vmax 1.6 m/sec - AV VTI 33 cm - AV peak gradient 10.54 mmHg - AV mean gradient 5.62 mmHg - LVOT Vmax 1.3 m/sec - LVOT VTI 26.4 cm - LVOT peak gradient 6.77 mmHg - LVOT mean gradient 3.06 mmHg - Name Value Normal Range TR Vmax 2.7 m/sec - TR peak gradient 30 mmHg - RAP 15 mmHg - RVSP 45 mmHg - IVC diameter 3 cm - Name Value Normal Range PV Vmax 1.2 m/sec - PV peak gradient 5.73 mmHg -
[2016-09-02] MEDS ORDERED: Albuterol/Ipratropium NEB.SOL* Albuterol 2.5 MG/Ipratropium 0.5 MG 3 ML INH PRN (17:01)
[2016-09-02] MEDS: Azithromycin IV(*) 250 MG in NS 0.9% 250 ML* 250 ML IVPB SCH (17:05)
--- NOTE | 2016-09-02 17:18 | PN ---
Subjective Date of Service: 09/02/16 Interval History: Seen and examined this AM cough increased but feels breathing is a little better Cough non productive denies SOB or CP Objective Active Medications: Acetaminophen (Tylenol Tab*) 650 mg PO Q4H PRN PRN Reason: FEVER/PAIN Albuterol/Ipratropium (Duoneb Neb.Soco*) 1 neb INH Q6H PRN PRN Reason: SOB/WHEEZING Allopurinol (Zyloprim Tab*) 100 mg PO DAILY [facility] Last Admin: 09/02/16 09:55 Dose: 100 mg Alprazolam (Xanax Tab*) 0.5 mg PO QID PRN PRN Reason: TREMORS Last Admin: 08/31/16 23:52 Dose: 0.5 mg Apixaban (Eliquis) 2.5 mg PO BID [facility] Last Admin: 09/02/16 09:55 Dose: 2.5 mg Benzonatate (Tessalon Cap*) 100 mg PO BID [facility] Budesonide (Pulmicort Neb*) 0.25 mg INH BID [facility] Last Admin: 09/02/16 07:48 Dose: 0.25 mg Bumetanide (Bumex Tab*) 2 mg PO DAILY [facility] Last Admin: 09/02/16 09:55 Dose: 2 mg Codeine Sulfate (Codeine Tab*) 15 mg PO BEDTIME [facility] Dextrose (D50w Syringe 50 Ml*) 12.5 gm IV PUSH .FOR FS < 60 - SS PRN PRN Reason: FS < 60 Diltiazem HCl (Cardizem Cd Cap*) 240 mg PO QAM [facility] Last Admin: 09/02/16 09:55 Dose: 240 mg Docusate Sodium (Colace Cap*) 100 mg PO BID [facility] Last Admin: 09/02/16 09:55 Dose: 100 mg Fluticasone Propionate (Flonase Nasal [place] 50mcg*) 2 spray BOTH NARES DAILY [facility] Last Admin: 09/02/16 09:55 Dose: 2 spray Azithromycin 250 mg/ Sodium (Chloride) 250 mls @ 250 mls/hr IVPB Q24H [facility] Last Admin: 09/02/16 17:05 Dose: 250 mls/hr Insulin Glargine (Lantus(*)) 30 units SUBCUT QPM [facility] Last Admin: 09/01/16 17:24 Dose: 30 units Insulin Human Lispro (Humalog*) 0 units SUBCUT ACHS [facility] PRN Reason: Protocol Last Admin: 09/02/16 12:56 Dose: 4 unit Magnesium Oxide (Magox 400 Tab*) 400 mg PO EVERY OTHER DAY [facility] Last Admin: 09/01/16 08:30 Dose: 400 mg Methylprednisolone Sodium Succinate (Solu-Medrol*) 40 mg IV Q8H [facility] Last Admin: 09/02/16 17:05 Dose: 40 mg Montelukast Sodium (Singulair Tab*) 10 mg PO DAILY PRN PRN Reason: Allergy Symptoms Polyethylene Glycol/Electrolytes (Miralax*) 17 gm PO DAILY [facility] Last Admin: 09/02/16 09:56 Dose: 17 gm Potassium Chloride (Klor Con Er Tab*) 20 meq PO TID [facility] Last Admin: 09/02/16 12:57 Dose: 20 meq Terazosin HCl (Hytrin Cap*) 10 mg PO BEDTIME [facility] Last Admin: 09/01/16 20:25 Dose: 10 mg Vital Signs 09/01/16 09/01/16 09/02/16 19:40 20:50 04:03 Temperature 97.6 F 98.2 F Pulse Rate 85 101 94 Respiratory 20 22 20 Rate Blood Pressure 126/73 122/48 (mmHg) O2 Sat by Pulse 100 97 100 Oximetry 09/02/16 09/02/16 09/02/16 07:14 07:51 08:00 Temperature 97.5 F Pulse Rate 80 74 Respiratory 20 16 16 Rate Blood Pressure 119/58 (mmHg) O2 Sat by Pulse 99 99 Oximetry 09/02/16 09/02/16 09/02/16 10:54 11:05 11:14 Temperature 97.5 F Pulse Rate 72 93 Respiratory 20 24 24 Rate Blood Pressure 111/51 (mmHg) O2 Sat by Pulse 99 98 Oximetry 09/02/16 09/02/16 09/02/16 13:05 16:19 17:10 Temperature Pulse Rate 70 78 Respiratory 20 16 16 Rate Blood Pressure (mmHg) O2 Sat by Pulse 100 97 Oximetry Oxygen Devices in Use Now: Nasal Cannula - 3L Appearance: lying 30 deg, NAD Eyes: No Scleral Icterus, PERRLA Ears/Nose/Mouth/Throat: Clear Oropharnyx, Mucous Membranes Moist Neck: NL Appearance and Movements; NL JVP, Trachea Midline Respiratory: Symmetrical Chest Expansion and Respiratory Effort, - - diffuse wheeze with resolution of rhonchi largely Cardiovascular: RRR Abdominal: NL Sounds; No Tenderness; No Distention, No Hepatosplenomegaly Extremities: - - 1+ edema b/l LE Skin: - - left ulcer with packing no surrounding erythema Neurological: Alert and Oriented x 3 Result Diagrams: 09/01/16 05:11 09/02/16 04:55 Additional Lab and Data: Lab Results 08/30/16 Range/Units 12:25 WBC 8.7 (3.5-10.8) 10^3/ul RBC 4.53 (4.0-5.4) 10^6/ul Hgb 10.5 L (14.0-18.0) g/dl Hct 34 L (42-52) % MCV 75 L (80-94) fL MCH 23 L (27-31) pg MCHC 31 (31-36) g/dl RDW 20 H (10.5-15) % Plt Count 284 (150-450) 10^3/ul MPV 8 (7.4-10.4) um3 Neut % (Auto) 67.6 (38-83) % Lymph % (Auto) 10.3 L (25-47) % [place] % (Auto) 12.0 H (1-9) % Eos % (Auto) 9.6 H (0-6) % Baso % (Auto) 0.5 (0-2) % Absolute Neuts (auto) 5.9 (1.5-7.7) 10^3/ul Absolute Lymphs (auto) 0.9 L (1.0-4.8) 10^3/ul Absolute Monos (auto) 1.0 H (0-0.8) 10^3/ul Absolute Eos (auto) 0.8 H (0-0.6) 10^3/ul Absolute Basos (auto) 0 (0-0.2) 10^3/ul Absolute Nucleated RBC 0 10^3/ul Nucleated RBC % 0 Microbiology and Other Data: Microbiology 08/30/16 14:04 Aerobic Blood Culture - Preliminary Blood Venous No Growth Day 1 Anaerobic Blood Culture - Preliminary No Growth Day 1 08/31/16 01:50 Gram Stain - Final Sputum 08/30/16 16:00 Influenza Types A,B Antigen (ROSANNE) - Final Nasal Specimen received for Influenza A/B Molecular testing Assess/Plan/Problems-Billing Assessment: 80 yo M h/o chf per report, chronic respiratory failure with h/o COPD per report , afib, recent admit with LLE cellulitis returning with increased SOB and failure to thrive at home - Patient Problems (1) Shortness of breath Comment: Suspect COPD exacerbation 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 Notable eosinophilia on CBC CT chest unremarkable IV steroids q8hrs holding home PO steroids change duoneb back to PRN c/w keflex and azithro add flutter valve codeine for cough this AM and again at bedtime tesslon BID (2) Chronic respiratory failure Comment: home oxygen (3) PIERRE (acute kidney injury) Status: Acute Comment: on CKD. Decrease bumex from BID to once daily 08/31/16 stop metolazone 08/31/16 has had decreased PO intake priorto hospital stay (4) Hypokalemia Comment: In setting of volume contraction and multiple diuretics decrease bumex and stop metolazone replete PO TID and suppliment IV as needed (5) Afib Comment: Continue Cardizem and renally dosed Eliquis (6) Elevated troponin Comment: stable TTE without RWMA no chest pain (7) DVT prophylaxis Comment: Eliquis
[2016-09-02] MEDS: Insulin GLARGINE(*) 1 UNITS UNIT SUBCUT SCH (18:07)
[2016-09-02] MEDS ORDERED: Codeine TAB* 15 MG PO SCH (21:00)
[2016-09-02] MEDS: Terazosin CAP* 5 MG PO SCH (22:54)
[2016-09-02] MEDS: Benzonatate CAP* 100 MG PO SCH (22:54)
[2016-09-03 06:29] LABS: BUN/Creatinine Ratio 32.4 (8-20); Calcium 8.2 mg/dL (8.6-10.3); EGFR African American 45.2 (>60); EGFR Non-African American 35.2 (>60); Potassium 3.6 mmol/L (3.5-5.0)
[2016-09-03 08:38] VITALS: BP 123/68
[2016-09-03] MEDS: Polyethylene Glycol 3350* 17 GM PACKET PO SCH (08:58)
[2016-09-03] MEDS: Bumetanide TAB* 2 MG PO SCH (08:59)
[2016-09-03] MEDS: Apixaban* 2.5 MG TAB PO SCH (08:59)
[2016-09-03] MEDS: Diltiazem CD CAP* 240 MG PO SCH (08:59)
[2016-09-03] MEDS: Docusate CAP* 100 MG PO SCH (08:59)
[2016-09-03] MEDS: Potassium Chlor TAB* 20 MEQ TAB.ER PO SCH ×2 (08:59→12:41)
[2016-09-03] MEDS: Benzonatate CAP* 100 MG PO SCH (08:59)
[2016-09-03] MEDS: Allopurinol TAB* 100 MG PO SCH (08:59)
[2016-09-03] MEDS: methylPREDNISolone SOD 40 MG* 1 ML VIAL IV SCH (09:00)
[2016-09-03] MEDS: Magnesium Oxide TAB* 400 MG PO SCH (09:00)
[2016-09-03] MEDS: Insulin LISPRO* 1 UNITS UNIT SUBCUT SCH ×2 (09:00→12:41)
[2016-09-03] MEDS: Fluticasone NASAL SPRAY 50MCG* 16 gm SPRAY BTL BOTH NARES SCH (09:01)
[2016-09-03] MEDS: Budesonide NEB* 0.25 MG/2 ML NEB.SOLN INH SCH ×2 (09:29→20:11)
--- NOTE | 2016-09-04 05:29 | DS ---
DISCHARGE SUMMARY: PRIMARY CARE PROVIDER: Trinidad Colon MD DATE OF ADMISSION: 08/30/16 DATE OF DISCHARGE: 09/03/16 PRIMARY DIAGNOSIS: Acute respiratory failure in the setting of severe bronchitis. SECONDARY DIAGNOSES: 1. Type 2 diabetes. 2. Chronic obstructive pulmonary disease. 3. Chronic respiratory failure. 4. Obstructive sleep apnea, on BiPAP. 5. History of deep vein thrombosis. 6. History of chronic atrial fibrillation, on Xarelto. 7. Acute kidney injury. 8. Hypertension. 9. CKD stage 3. 10. Gout. MEDICATIONS ON DISCHARGE: 1. Terazosin 10 mg at bedtime. 2. Humulin 0 to 10 mg 3 times a day with meals per home sliding scale. 3. Fatuma 180 mg daily. 4. Pulmicort 0.25 mg inhaled twice daily. 5. Vitamin D3 2000 international units daily. 6. Albuterol nebulizer 4 times a day as needed for shortness of breath or wheeze. 7. Xanax 0.5 mg 4 times a day as needed for anxiety. 8. Senna at bedtime as needed for constipation. 9. Xarelto 15 mg daily. Dose renally adjusted. 10. MiraLAX 17 g as needed for constipation. 11. Singulair 10 mg daily. 12. Fluticasone 2 sprays both nares daily. 13. Allopurinol 100 mg daily. 14. Magnesium oxide 400 mg every other day. 15. Ipratropium nebulizer every 6 hours as needed for shortness of breath or wheeze. 16. Insulin Lantus 30 units in the evening. 17. Prednisone 60 mg daily for 5 additional days, then resume prednisone 10 mg daily. 18. Morphine sulfate 5-20 mg as needed for shortness of breath or pain. 19. Potassium chloride 20 mEq 2 to 3 times a day. 20. Diltiazem CD 240 mg in the morning. 21. Acetaminophen 500 mg every 6 hours as needed for pain or fever. 22. Formoterol 20 mcg inhaled twice daily. 23. Codeine 15 mg at bedtime as needed for cough, 20 tabs dispensed. 24. Bumetanide 2 mg daily, decreased from 2 mg twice daily. 25. Tessalon capsules 100 mg twice daily as needed for cough. Please note metolazone was also discontinued. PERTINENT IMAGING PERFORMED DURING HOSPITAL STAY: 1. Chest CT: Impression: Mild left basilar atelectasis. No compelling evidence for pneumonia or pulmonary edema. 2. Transthoracic echocardiogram: Impression: Atrial fibrillation, left ventricular wall motion and contractility within normal limits with an LVEF estimated to be 55% to 60%. 3. Right ventricular global systolic function is normal. No evidence of AR, trace MR, mild to moderate TR. Evidence of mild pulmonary hypertension, little change compared to August 2015. HISTORY OF PRESENT ILLNESS AND HOSPITAL COURSE: This is a pleasant 80-year-old gentleman, past medical history as outlined in the history of present illness on the day of admission. Recent hospital stay in July for left leg cellulitis who has been in his usual state at home, developed increasing shortness of breath with a nonproductive cough. He was admitted to the hospital with acute on chronic respiratory failure and diffuse rhonchi throughout all lobes. He was started on prednisone with slow improvement. CAT scan did not indicate any pulmonary edema nor evidence of consolidation. Additionally, a transthoracic echocardiogram did not indicate worsening heart failure. If anything, it noted very mild systolic heart dysfunction with preserved diastolic function. It is my estimation that he has worsening diastolic dysfunction. calculated on transthoracic echocardiogram based on his need for daily diuretics in addition to his chronic lower extremity edema. In any case, he was maintained on steroids and his cough was suppressed with Tessalon as well as codeine as needed. His lungs cleared and he felt back to his baseline on the day of discharge. On the day of discharge, he had minimal rhonchi in the apex, improved from diffuse rhonchi throughout. He is out of bed and tolerating his diet. He was anxious to return home. I did discuss the possibility for palliative care and hospitalist at home. He was seen in conjunction with our palliative care team. At this time, he is being referred to [facility] to evaluate for his eligibility once he returns home. It is unclear at this time whether he or his would want to accept home hospice at this time. He has previously been on hospice prior to this admission. Reasons to return to the hospital including but not limited to worsening breathing, chest pain, shortness of breath, nausea, vomiting, lightheadedness, loss of consciousness, fever, chills, night sweats, inability to obtain or tolerate his medications, bleeding from any source, uncontrolled diarrhea discussed with patient and his . They acknowledged their understanding. TIME SPENT: Greater than 60 minutes were spent in discharge of this patient, greater than half was spent [id number] with the patient. CC: Trinidad Colon MD* [id number]/[facility] #: [id number] MTDD
== END 2016-09-03 16:20 | disposition home or self-care (01) | DRG 189 ==
LOC: ED 12:09 → MEDTELE 13:53
PROVIDERS: ADMIT Internal Medicine; ATTEND Internal Medicine
DX: J96.20 Acute and chronic respiratory failure, unspecified whether with hypoxia or hypercapnia (principal); N17.9 Acute kidney failure, unspecified; J44.0 Chronic obstructive pulmonary disease with (acute) lower respiratory infection; E11.22 Type 2 diabetes mellitus with diabetic chronic kidney disease; I13.0 Hypertensive heart and chronic kidney disease with heart failure and stage 1 through stage 4 chronic kidney disease, or unspecified chronic kidney disease; I50.20 Unspecified systolic (congestive) heart failure; I48.2 Chronic atrial fibrillation; E86.0 Dehydration; Z99.81 Dependence on supplemental oxygen; M10.9 Gout, unspecified; E87.6 Hypokalemia; J44.1 Chronic obstructive pulmonary disease with (acute) exacerbation; J20.9 Acute bronchitis, unspecified; G47.33 Obstructive sleep apnea (adult) (pediatric); N18.3 Chronic kidney disease, stage 3 (moderate); N40.0 Benign prostatic hyperplasia without lower urinary tract symptoms; S80.922A Unspecified superficial injury of left lower leg, initial encounter; X58.XXXA Exposure to other specified factors, initial encounter; I87.8 Other specified disorders of veins; Z79.01 Long term (current) use of anticoagulants; Z86.718 Personal history of other venous thrombosis and embolism; Z79.1 Long term (current) use of non-steroidal anti-inflammatories (NSAID); Z79.4 Long term (current) use of insulin; Z79.52 Long term (current) use of systemic steroids; Z79.899 Other long term (current) drug therapy; Z80.0 Family history of malignant neoplasm of digestive organs
CPT/HCPCS: 36415; 71020; 71250; 80048; 80053; 81003; 81015; 82947; 83605; 83880; 84484; 85025; 85610; 85730; 86140; 87040; 87070; 87086; 87205; 87502; 93005; 93306; 94640; 94660; 94664; 94760; A9270-GY; J0456; J2920; J3480; J7512

== ENCOUNTER 2016-09-25 06:39 | Inpatient (IN) | payer MEDICARE ==
--- NOTE | 2016-09-25 07:16 | ED ---
Tanja López Anna, scribed for Franky Nicole MD on 09/25/16 at 0704 . GI/ HPI - HPI Summary HPI Summary: Patient is an 80 y/o male coming to [facility] presenting with sudden onset of constant genitourinary pain that began after his catheter became caught on his wheelchair this morning. He now has blood in his tubing and bag, which he reports started this morning. He denies fever. Pt takes Xarelto. - History of Current Complaint Chief Complaint: EDUrogenitalProblems Time Seen by Provider: 09/25/16 07:00 Stated Complaint: CATH ISSUE Hx Obtained From: Patient Pain Intensity: 0 - Additional Pertinent History Primary Care Physician: ELIAS - Allergy/Home Medications Allergies/Adverse Reactions: Allergies Allergy/AdvReac Type Severity Reaction Status Date / Time Amoxicillin [From Augmentin] Allergy Unknown Unknown Verified 06/27/16 12:08 Reaction Details Clavulanic Acid Allergy Unknown Unknown Verified 06/27/16 12:08 [From Augmentin] Reaction Details Penicillins [PCN] Allergy Unknown Unknown Verified 06/27/16 12:08 Reaction Details Sulfa Drugs Allergy Unknown Unknown Verified 06/27/16 12:08 Reaction Details Home Medications: Home Medications Benzonatate CAP* [Tessalon CAP*] 100 mg PO TID PRN 09/25/16 [History Confirmed 09/25/16] Docusate CAP* [Colace Cap*] 100 - 200 mg PO DAILY 09/25/16 [History Confirmed ] Furosemide TAB* [Lasix TAB*] 80 mg PO BID 09/25/16 [History Confirmed 09/25/16] Ipratropium 0.5MG/2.5ML NEB* [Atrovent 0.5 MG NEB.PAUL*] 0.5 mg INH QID PRN 09/25 [History Confirmed 09/25/16] PMH/Surg Hx/FS Hx/Imm Hx Previously Healthy: No Endocrine/Hematology History: Reports: Hx Anticoagulant Therapy, Hx Diabetes, Other Endocrine/Hematological Disorders - Hx hypokalemia Denies: Hx Thyroid Disease Cardiovascular History: Reports: Hx Congenital Heart Disease, Hx Congestive Heart Failure, Hx Deep Vein Thrombosis, Hx Hypertension, Hx Peripheral Vascular Disease, Other Cardiovascular Problems/Disorders - venous insufficiency Denies: Hx Pacemaker/ICD Respiratory History: Reports: Hx Asthma, Hx Chronic Obstructive Pulmonary Disease (COPD) - 3L O2 at home, Hx Pneumonia, Hx Pulmonary Embolism, Hx Sleep Apnea - bipap used at home Denies: Other Respiratory Problems/Disorders GI History: Reports: Hx Gastroesophageal Reflux Disease Denies: Other GI Disorders History: Reports: Hx Acute Renal Failure, Hx Benign Prostatic Hyperplasia - chronic catheter, Hx Chronic Renal Failure, Hx Renal Disease Denies: Hx Dialysis, Other Problems/Disorders Musculoskeletal History: Reports: Hx Arthritis, Hx Back Problems - chronic back pain, Hx Gout, Other Musculoskeletal History - CHRONIC CELLULITIS Sensory History: Reports: Hx Contacts or Glasses, Hx Vision Problem, Hx Hearing Aid, Hx Hearing Problem Denies: Hx Deafness Opthamlomology History: Reports: Hx Contacts or Glasses, Hx Vision Problem Neurological History: Denies: Hx Dementia, Hx Seizures Psychiatric History: Reports: Hx Anxiety Denies: Hx Panic Disorder, Hx Substance Abuse, Other Psychiatric Issues/ Disorders - Surgical History Surgery Procedure, Year, and Place: SPHENOIDOTOMY 2008. CATARACT 2007. ETHMOIDECTOMY 2008. SINUSOTOMY 2008. HERNIA REPAIR Hx Anesthesia Reactions: No - Immunization History Date of Tetanus Vaccine: Unk Date of Influenza Vaccine: None Infectious Disease History: No Infectious Disease History: Denies: Hx Hepatitis, Hx Human Immunodeficiency Virus (HIV), Traveled Outside the [place] in Last 30 Days - Family History Known Family History: Positive: Diabetes, Other - Cancer - Social History Occupation: Retired Lives: With Family Alcohol Use: None Substance Use Type: Reports: None Smoking Status (MU): Never Smoked Tobacco Review of Systems Negative: Fever Positive: pain, other - bleeding All Other Systems Reviewed And Are Negative: Yes Physical Exam Triage Information Reviewed: Yes Vital Signs On Initial Exam: Initial Vitals Temp Pulse Resp BP Pulse Ox 99.7 F 109 16 135/68 98 09/25/16 06:42 09/25/16 06:42 09/25/16 06:42 09/25/16 06:42 09/25/16 06:42 Vital Signs Reviewed: Yes Appearance: Positive: No Pain Distress Skin: Positive: Warm ENT: Positive: Hearing grossly normal Neck: Positive: Supple Respiratory/Lung Sounds: Positive: Clear to Auscultation Abdomen Description: Positive: Nontender, Soft, Other: - suprapubic tenderness Bowel Sounds: Positive: Present Musculoskeletal: Positive: Strength/ROM Intact Diagnostics - Vital Signs Vital Signs Temp Pulse Resp BP Pulse Ox 01/31/17 06:42 99.7 F 109 16 135/68 98 - Laboratory Result Diagrams: 09/26/16 04:38 09/26/16 04:38 Lab Statement: Any lab studies that have been ordered have been reviewed, and results considered in the medical decision making process. GIGU Course/Dx - Course Assessment/Plan: Patient is an 80 y/o male coming to [facility] presenting with sudden onset of constant genitourinary bleeding that began after his catheter became caught on his wheelchair this morning. He now has blood in his tubing and bag, which he reports started this morning. He denies fever. Pt takes Xarelto. Patient will be signed out to Dr. Harris pending results of CBC, BMP , UA. - Diagnoses Provider Diagnoses: Sepsis Discharge - Discharge Plan Condition: Stable Disposition: ADMITTED TO [facility] Discharge Disposition Comment: Signed out to Dr. Harris, pending results of CBC, BMP, UA. The documentation as recorded by the Tanja mercer Anna accurately reflects the service I personally performed and the decisions made by , Franky Nicole MD.
[2016-09-25 08:51] LABS: Hematocrit 34 % (42-52); Hemoglobin 10.6 g/dl (14.0-18.0); Mean Corpuscular HGB Conc 32 g/dl (31-36); Mean Corpuscular Hemoglobin 23 pg (27-31); Mean Platelet Volume 8 um3 (7.4-10.4); Red Blood Count 4.63 10^6/ul (4.0-5.4); Red Cell Distribution Width 19 % (10.5-15); White Blood Count 17.7 10^3/ul (3.5-10.8)
[2016-09-25 09:00] LABS: Comments Flag Yes
[2016-09-25 09:03] LABS: Mean Corpuscular Volume 73 fL (80-94)
[2016-09-25 09:05] LABS: BUN/Creatinine Ratio 28.3 (8-20); EGFR African American 25.9 (>60); EGFR Non-African American 20.1 (>60)
[2016-09-25 09:07] LABS: Potassium 2.4 mmol/L (3.5-5.0)
[2016-09-25] MEDS ORDERED: Gentamicin ADULT (*) 40 MG/ML VIAL IVPB ONE (10:03)
[2016-09-25] MEDS ORDERED: NS 0.9% 1000 ML* 1,000 ML IV SCH ×3 (10:15→13:53)
--- NOTE | 2016-09-25 10:28 | RAD ---
INDICATION: Fever COMPARISON: August 30, 2016 TECHNIQUE: An AP portable view obtained at 0950 hours is submitted. FINDINGS: Bones/Soft Tissues: There are no acute bony findings. Cardiomediastinal: The cardiomediastinal silhouette is normal. Lungs: There are no infiltrates. Pleura: There are no pleural effusions. Other: None IMPRESSION: NO ACTIVE DISEASE
[2016-09-25 11:03] LABS: Urine Bacteria Absent (Absent); Urine Bilirubin Negative (Negative); Urine Glucose Negative (Negative); Urine Nitrite Negative (Negative)
[2016-09-25] MEDS ORDERED: Ondansetron INJ* 2 MG/ML VIAL IV PRN (11:28)
[2016-09-25] MEDS ORDERED: Dextrose 50% Syringe 50 ML* 25 GM/50 ML SYRINGE IV PUSH PRN (11:28)
[2016-09-25] MEDS ORDERED: Acetaminophen TAB* 325 MG PO PRN (11:28)
[2016-09-25] MEDS ORDERED: NS 0.9% 1000 ML* 1,000 ML IV ONE (11:28)
[2016-09-25] MEDS ORDERED: Potassium Chlor TAB* 20 MEQ TAB.ER PO ONE ×2 (11:35→20:26)
[2016-09-25] MEDS ORDERED: Albuterol 2.5 MG/3 ML NEB.SOL* (0.083%) INH PRN (11:39)
[2016-09-25] MEDS ORDERED: Diltiazem TAB* 60 MG PO ONE (11:41)
[2016-09-25] MEDS ORDERED: Montelukast Sodium TAB* 10 MG PO PRN (11:42)
[2016-09-25] MEDS ORDERED: ALPRAZolam TAB* 0.5 MG PO PRN (11:42)
[2016-09-25] MEDS ORDERED: Linezolid 600 MG IVPREMIX(*) 600 MG/300 ML BAG IVPB SCH (12:00)
--- NOTE | 2016-09-25 12:18 | ED ---
Tanja López Anna, scribed for Sharath Harris MD on 09/25/16 at 0923 . Progress - Progress Note Progress Note: Sign out patient from Dr. Nicole. The patient's urine has returned to yellow, straw color. He continues to bleed around the catheter site. Labs reveal low potassium level of 2.4, Creatinine level of 28.3, and WBC of 17.7. Pt now has a fever of 101.2 F. ADMIT HOSPITALIST GUARDED DX SEPSIS Course/Dx - Diagnoses Provider Diagnoses: Sepsis - Provider Notifications Discussed Care Of Patient With: Dr. Adamson (hospitalist) at 0935. Accepts patient for admission. Diagnostics - Vital Signs Vital Signs Temp Pulse Resp BP Pulse Ox 09/25/16 09:26 101.2 F 09/25/16 09:00 61 130/63 100 09/25/16 08:30 118 125/56 97 09/25/16 08:00 149/66 09/25/16 07:30 153/66 09/25/16 07:24 71 97 09/25/16 07:01 115 99 09/25/16 07:00 134/62 09/25/16 06:42 99.7 F 109 16 135/68 98 - Laboratory Lab Results: Lab Results 09/25/16 09/25/16 Range/Units 08:41 08:41 WBC 17.7 H (3.5-10.8) 10^3/ul RBC 4.63 (4.0-5.4) 10^6/ul Hgb 10.6 L (14.0-18.0) g/dl Hct 34 L (42-52) % MCV 73 L (80-94) fL MCH 23 L (27-31) pg MCHC 32 (31-36) g/dl RDW 19 H (10.5-15) % Plt Count 252 (150-450) 10^3/ul MPV 8 (7.4-10.4) um3 Neut % (Auto) 96.2 H (38-83) % Lymph % (Auto) 1.3 L (25-47) % Marion % (Auto) 0.5 L (1-9) % Eos % (Auto) 1.1 (0-6) % Baso % (Auto) 0.9 (0-2) % Absolute Neuts (auto) 17.0 H (1.5-7.7) 10^3/ul Absolute Lymphs (auto) 0.2 L (1.0-4.8) 10^3/ul Absolute Monos (auto) 0.1 (0-0.8) 10^3/ul Absolute Eos (auto) 0.2 (0-0.6) 10^3/ul Absolute Basos (auto) 0.2 (0-0.2) 10^3/ul Absolute Nucleated RBC 0 10^3/ul Nucleated RBC % 0 Sodium 132 L (133-145) mmol/L Potassium 2.4 L* (3.5-5.0) mmol/L Chloride 89 L (101-111) mmol/L Carbon Dioxide 32 (22-32) mmol/L Anion Gap 11 (2-11) mmol/L BUN 85 H (6-24) mg/dL Creatinine 3.00 H (0.67-1.17) mg/dL Est GFR ( Amer) 25.9 (>60) Est GFR (Non-Af Amer) 20.1 (>60) BUN/Creatinine Ratio 28.3 H (8-20) Glucose 88 (70-100) mg/dL Calcium 9.0 (8.6-10.3) mg/dL Result Diagrams: 09/25/16 08:41 09/25/16 08:41 Lab Statement: Any lab studies that have been ordered have been reviewed, and results considered in the medical decision making process. - Radiology CXR Xray Interpretation: No Acute Changes Radiology Interpretation Completed By: Radiologist - EKG 0918 Cardiac Rate: Tachycardia - 116 bpm EKG Rhythm: Atrial Fibrillation EKG Interpretation: No STEMI The documentation as recorded by the Tanja mercer Anna accurately reflects the service I personally performed and the decisions made by , Sharath Harris MD.
[2016-09-25] MEDS: KCL 20 MEQ/100 ML IVPREMIX* 20 MEQ/100 ML BAG IV SCH ×2 (12:36→15:03)
[2016-09-25] MEDS: Insulin LISPRO* 1 UNITS UNIT SUBCUT SCH ×2 (13:39→17:30)
[2016-09-25] MEDS: Potassium Chlor TAB* 20 MEQ TAB.ER PO SCH ×2 (13:40→20:44)
[2016-09-25] MEDS: Heparin VIAL(*) 5000 UNITS/ML VIAL (FIVE THOUSAND) SUBCUT SCH ×2 (13:41→22:05)
[2016-09-25] MEDS: predniSONE TAB* 10 MG PO SCH (13:44)
[2016-09-25] MEDS ORDERED: NS 0.9% 500 ML* 500 ML IV ONE (14:00)
--- NOTE | 2016-09-25 15:42 | HP ---
HISTORY AND PHYSICAL: DATE OF ADMISSION: 09/25/16 PRIMARY CARE PROVIDER: Dr. Trinidad Logan. ATTENDING PHYSICIAN WHILE IN THE HOSPITAL: Dr. Carolyn Adamosn *(report dictated by Shahbaz Groves NP) CHIEF COMPLAINT: 1. Hematuria. 2. Lower abdominal pain. HISTORY OF PRESENT ILLNESS: Mr. Desai is an 80-year-old male patient with multiple medical problems, history of AFib; diabetes; COPD; BALDOMERO; history of BPH , he has a chronic catheter for that; history of DVT; in addition to this, history of CHF; hypertension; CKD, stage 3; gout. He comes in today stating that his catheter was hooked to the end of his hospital bed. He went to get up and he had forgotten about that, he got tangled up on the tubing and had pulled. Shortly thereafter, he started having lower pelvic pain, he was having hematuria. His had given him a dose of morphine for the pain. They tried getting in touch with his on-call nurse, but they were unable to. The pain was continuing and there was still significant amount of hematuria. However, his called 911 and was brought into the hospital. The patient states that he had no pain prior to this. He denies having any shortness of breath. His breathing through the right naris is at baseline. He denies having any nausea, vomiting, or diarrhea. He denies having any chest pain. Denies any orthopnea. He says that the discomfort really started after. The said that his catheter appeared to be draining, but it was mostly bloody. The patient denies having any sore throat, runny nose. Denies having any cough recently. He had a recent change of medication; he recently was put on 80 mg b.i.d. of Lasix, says he has been taking as this prescribed along with 3 times a day potassium, which is the only change in his meds. There were no reported fevers or chills. He came in to the hospital. His catheter was changed out, the urine cleared. Repeat vitals, however, found that he had a fever of 102, in addition to this. At that point, labs were obtained and he had a white count of 17,000. Hospitalist service was asked to evaluate for admission. PAST MEDICAL HISTORY: Significant for: 1. AFib. 2. Diabetes. 3. COPD. 4. BALDOMERO. 5. BPH. 6. History of DVT. 7. History of CHF. 8. Hypertension. 9. CKD, stage 3. 10. Gout. PAST SURGICAL HISTORY: He has had a hernia repair. HOME MEDICATIONS: Include: 1. Hytrin 10 mg at bedtime. 2. Pulmicort 0.25 mg inhaled b.i.d. 3. Vitamin D3 2000 units p.o. daily. 4. Ventolin 2.5 mg inhaled four times a day as needed. 5. Xanax 0.5 mg p.o. four times a day as needed. 6. Xarelto 15 mg p.o. daily. 7. MiraLAX 17 g p.o. daily. 8. Singulair 10 mg p.o. daily as needed. 9. Humulin 0 to 10 units subcu t.i.d. sliding scale before meals. 10. Colace 100 to 200 mg daily. 11. Lantus 30 units subcu at bedtime. 12. Flonase 2 sprays both nares daily. 13. Allopurinol 100 mg daily. 14. Atrovent 0.5 mg inhaled four times a day as needed. 15. Prednisone 10 mg daily. 16. Morphine 5 to 20 mg p.o. every hour as needed. 17. Perforomist 20 mcg inhaled b.i.d. 18. Cardizem 240 mg p.o. daily. 19. Tylenol 500 to 1000 mg every 6 hours as needed. 20. Senna 1 to 2 tablets at bedtime as needed. 21. Potassium 20 mEq p.o. t.i.d. 22. Magnesium 400 mg p.o. every other day. 23. Lasix 80 mg p.o. t.i.d. 24. Tessalon Perles 100 mg p.o. t.i.d. as needed. ALLERGIES TO MEDICATIONS: Include PENICILLIN and SULFA. FAMILY HISTORY: His father had a history of throat cancer, otherwise reviewed and noncontributory. SOCIAL HISTORY: He does not smoke, he does not drink. He lives with his . Surrogate decision maker is his , Smiley. REVIEW OF SYSTEMS: There is a documented fever here, but none at home. He denied having any significant weight change. There was no double vision. He denies having any ear discharge, no rhinorrhea. No sore throat, no thyroid enlargement. Denies having any chest pain. There is no orthopnea or nocturnal dyspnea. There was lower abdominal pain in the pelvis area right near the catheter site after the trauma. He denied any nausea or vomiting. No dysuria, no frequency. No loss of consciousness. No pruritus and no skin ulcerations. Review of 14 systems completed, all others negative. PHYSICAL EXAMINATION GENERAL: At this time, Mr. Desai is an 80-year-old male patient. He is sitting in the ER stretcher. He does not appear to be in any acute distress. He appears to be drowsy, but he awakens, and he is alert and oriented x3. VITAL SIGNS: Reveal blood pressure 129/51 with a pulse of 109, respirations 18 , O2 sat 99%, temperature 100.3. HEENT: Head: Atraumatic, normocephalic. Eyes: EOMs intact. Sclerae anicteric and not pale. Throat: Oral mucosa appears to be dry. No oropharyngeal erythema. NECK: Supple. LUNGS: Diminished throughout. He did have some wheeze in the upper lobes and equal diaphragmatic expansion. HEART: Sounds S1, S2. Irregularly irregular rate. No murmurs, rubs, or gallops. ABDOMEN: Soft, flat, nontender. Bowel sounds present. EXTREMITIES: He had +2 pitting edema bilaterally. He had chronic-appearing venous stasis. He is able to move all 4 extremities with 5/5 strength. NEUROLOGICAL: The patient is awake, he is alert, he is drowsy, but able to awaken to his name being called and at that point, he is alert and oriented x3. His pupils were equal. His tongue was midline. He had no gross focal deficits. SKIN: Intact, exception, he has a chronic wound to the left hall area, which measures approximately 0.5 cm in a circular fashion and it is packed with dressing and it appears to be clean, dry, and intact. DIAGNOSTIC STUDIES/LAB DATA: Today revealed WBC 17.7, RBC of 4.63, hemoglobin 10.6, hematocrit 34, platelet count 252. His sodium was 132, his potassium was 2.4, his chloride was 89, his bicarb was 32. His BUN was 85; creatinine was 3, his baseline creatinine runs right about 2. His glucose was 88, his lactate was 3.0, his calcium was 9.0. His urine showed a specific gravity of 1.008, 3+ blood, trace leukocyte esterase, rbc's, absent bacteria. He did have a chest x-ray obtained today which revealed no active disease. He had an EKG obtained today as well which showed an atrial fibrillation at rate of 116. He had no ST elevations or T-wave inversions. It was reviewed to the previous EKG, it does appear to be similar. Old medical records were reviewed. ASSESSMENT AND PLAN: Mr. Desai is an 80-year-old male patient coming into the ER today with complaints of hematuria and lower pelvic pain after Bonilla trauma. On further evaluation here today, it was noted that he had leukocytosis , in addition he was febrile and tachycardic. Hospitalist service was asked to evaluate for admission. He will be admitted under inpatient status for: 1. Sepsis. His qSOFA score is a 1, makes sepsis possible, and with fever and the tachycardia, certainly, concern is for underlying infection. I do think he warrants being pancultured at least a liter of fluid. He appears to be dry, based on his creatinine, he had a recent increase in diuretic which is most likely why he is dry. I think, at this point, we will go ahead and put him on cefepime and linezolid. Recent issue with linezolid is that he has had VRE in the urine in the past and I am concerned that with the recent trauma, possibly he could have become bacteremic from this, although the timing and the onset is rather quick for this and he did not have urinary retention. I would like to cover him, panculture him, and see if the source presents itself, and then titrate back his antibiotics. As this patient is chronically ill, I think he deserves the broad-spectrum antibiotics and he has been recently hospitalized as well. I think, at this point, we will go ahead and get a flu swab as well. His chest x-ray is negative. I do not think this is a respiratory source, again it could be viral and I am getting a CT of the abdomen and pelvis, but he was tender in the lower abdomen on exam slightly, but did not appear to have surgical abdomen, but by any means, I would like to make sure there is not any either abdominal pathology that is contributing to this infection. I will hydrate him. I will continue to follow. 2. Atrial fibrillation. His rate is not controlled currently. He does appear to be dry, which is probably contributing. In addition to this, he has not taken his medication. I am going to go ahead and continue his diltiazem. I am holding his Xarelto in the setting of the acute renal failure. If his creatinine comes back down to his baseline, we can restart his Xarelto. 3. History of diabetes. We will go ahead and put him on lispro sliding scale. 4. Chronic obstructive pulmonary disease. We will continue his nebulizers and p.r.n. albuterol. 5. Obstructive sleep apnea. I ordered his home BiPAP. 6. BPH. I am holding his Hytrin for the time being given his possible sepsis and blood pressure being in the 120s. I did continue his diltiazem, however, though withhold parameters. 7. History of deep venous thrombosis. I am going to put him on subcu heparin until his creatinine comes down to baseline for prophylaxis, it is not an active issue. 8. History of congestive heart failure. We will need to monitor his I's and O' s and his fluid status and diurese him as needed. He does not appear to be in acute failure. 9. Hypertension. Again, continue diltiazem withhold parameters, I am switching him from the controlled release to the immediate release in the setting of an acute illness. 10. Chronic kidney disease, stage 3, with acute renal failure. Probably, prerenal secondary to dehydration. I am though going to send off a FENa and we will bladder scan him. His catheter is draining appropriately. 11. Gout. Holding the allopurinol in the setting of acute renal failure. 12. DVT prophylaxis. He is high risk. He is going to be placed on heparin subcu. 13. Code status. He is a DNR. 14. Fluids, electrolytes, and nutrition. He can have a consistent carb diet. TIME SPENT: On admission was approximately 70 minutes, greater than half the time was spent [id number] with the patient obtaining my history and physical, the other half time spent going over the plan of care with the patient and implementing plan of care. I did discuss the plan of care with my attending, Dr. Adamson; she is in agreement. SHAHBAZ GROVES NP CC: Dr. Trinidad Logan * [id number]/[facility] #: [id number] HILDA
--- NOTE | 2016-09-25 16:42 | RAD ---
INDICATION: Pelvic and lower abdominal pain. COMPARISON: Comparison is made with a prior CT of the abdomen and pelvis from August 25, 2014. TECHNIQUE: A CT scan of the abdomen and pelvis was performed without intravenous or oral contrast. Contiguous axial sections were obtained from the lung bases through the symphysis pubis. Images were reconstructed in the coronal and sagittal planes. FINDINGS: There is a nodular infiltrate present in the right lower lobe which appears unchanged from the prior study. There is a patchy infiltrate in the left lower lobe suggestive of atelectasis. No pleural effusion is present. The liver is mildly enlarged and decreased in attenuation consistent with fatty infiltration. No significant focal abnormality is seen on this noncontrast study. No calcified gallstones are seen. The spleen is within normal limits in size. The pancreas appears to be within normal limits. The adrenal glands and kidneys are normal in size. There is bilateral cortical thinning. No renal calculi or hydronephrosis is seen. There is a Bonilla catheter within the urinary bladder which is decompressed. The aorta is tortuous and ectatic with moderate calcific plaque present. No significant enlarged retroperitoneal lymph nodes are seen. The stomach, small and large bowel appear nondistended. The appendix is not visualized. There is mild descending and sigmoid diverticulosis without evidence for diverticulitis. Postsurgical changes are noted in the left inguinal region. There appears be a small left inguinal hernia containing fat. There is also a periumbilical hernia containing fat. No free intraperitoneal air or fluid is seen. No significant focal osseous abnormality is seen. IMPRESSION: 1. NO EVIDENCE FOR ACUTE FINDING OR CAUSE FOR THE PATIENT'S ABDOMINAL PAIN IS SEEN. 2. MILD HEPATOMEGALY AND HEPATIC STEATOSIS.
--- NOTE | 2016-09-25 16:46 | CONSULT ---
Palliative / Hospice Consult - Subjective Advance Directives Location: With Family - History or Present Illness Lab Values: Abnormal Lab Results 09/25/16 09/25/16 09/25/16 10:15 10:24 10:24 INR (Anticoag Therapy) 2.08 H POC Glucose (mg/dL) Lactic Acid 3.0 H* Urine Color Yellow Urine Appearance Clear Urine pH 7.0 Ur Specific [place] 1.008 L Urine Protein Negative Urine Ketones Negative Urine Blood 3+ H Urine Nitrate Negative Urine Bilirubin Negative Urine Urobilinogen Negative Ur Leukocyte Esterase Trace H Urine WBC (Auto) Trace(0-5/hpf) Urine RBC (Auto) 3+(>10/hpf) H Urine Bacteria Absent Urine Glucose Negative Influenza A (Rapid) Influenza B (Rapid) 09/25/16 09/25/16 11:51 12:35 INR (Anticoag Therapy) POC Glucose (mg/dL) 151 H Lactic Acid Urine Color Urine Appearance Urine pH Ur Specific [place] Urine Protein Urine Ketones Urine Blood Urine Nitrate Urine Bilirubin Urine Urobilinogen Ur Leukocyte Esterase Urine WBC (Auto) Urine RBC (Auto) Urine Bacteria Urine Glucose Influenza A (Rapid) Negative Influenza B (Rapid) Negative Laboratory Last Values WBC 17.7 10^3/ul (3.5-10.8) H 09/25/16 08:41 RBC 4.63 10^6/ul (4.0-5.4) 09/25/16 08:41 Hgb 10.6 g/dl (14.0-18.0) L 09/25/16 08:41 Hct 34 % (42-52) L 09/25/16 08:41 MCV 73 fL (80-94) L 09/25/16 08:41 MCH 23 pg (27-31) L 09/25/16 08:41 MCHC 32 g/dl (31-36) 09/25/16 08:41 RDW 19 % (10.5-15) H 09/25/16 08:41 Plt Count 252 10^3/ul (150-450) 09/25/16 08:41 MPV 8 um3 (7.4-10.4) 09/25/16 08:41 Neut % (Auto) 96.2 % (38-83) H 09/25/16 08:41 Lymph % (Auto) 1.3 % (25-47) L 09/25/16 08:41 [place] % (Auto) 0.5 % (1-9) L 09/25/16 08:41 Eos % (Auto) 1.1 % (0-6) 09/25/16 08:41 Baso % (Auto) 0.9 % (0-2) 09/25/16 08:41 Absolute Neuts (auto) 17.0 10^3/ul (1.5-7.7) H 09/25/16 08:41 Absolute Lymphs (auto) 0.2 10^3/ul (1.0-4.8) L 09/25/16 08:41 Absolute Monos (auto) 0.1 10^3/ul (0-0.8) 09/25/16 08:41 Absolute Eos (auto) 0.2 10^3/ul (0-0.6) 09/25/16 08:41 Absolute Basos (auto) 0.2 10^3/ul (0-0.2) 09/25/16 08:41 Absolute Nucleated RBC 0 10^3/ul 09/25/16 08:41 Nucleated RBC % 0 09/25/16 08:41 INR (Anticoag Therapy) 2.08 (0.89-1.11) H 09/25/16 10:24 Sodium 132 mmol/L (133-145) L 09/25/16 08:41 Potassium 2.4 mmol/L (3.5-5.0) L* 09/25/16 08:41 Chloride 89 mmol/L (101-111) L 09/25/16 08:41 Carbon Dioxide 32 mmol/L (22-32) 09/25/16 08:41 Anion Gap 11 mmol/L (2-11) 09/25/16 08:41 BUN 85 mg/dL (6-24) H 09/25/16 08:41 Creatinine 3.00 mg/dL (0.67-1.17) H 09/25/16 08:41 Est GFR ( Amer) 25.9 (>60) 09/25/16 08:41 Est GFR (Non-Af Amer) 20.1 (>60) 09/25/16 08:41 BUN/Creatinine Ratio 28.3 (8-20) H 09/25/16 08:41 Glucose 88 mg/dL (70-100) 09/25/16 08:41 POC Glucose (mg/dL) 151 mg/dL (74-106) H 09/25/16 12:35 Lactic Acid 3.0 mmol/L (0.5-2.0) H* 09/25/16 10:24 Calcium 9.0 mg/dL (8.6-10.3) 09/25/16 08:41 Urine Color Yellow 09/25/16 10:15 Urine Appearance Clear 09/25/16 10:15 Urine pH 7.0 (5-9) 09/25/16 10:15 Ur Specific [place] 1.008 (1.010-1.030) L 09/25/16 10:15 Urine Protein Negative (Negative) 09/25/16 10:15 Urine Ketones Negative (Negative) 09/25/16 10:15 Urine Blood 3+ (Negative) H 09/25/16 10:15 Urine Nitrate Negative (Negative) 09/25/16 10:15 Urine Bilirubin Negative (Negative) 09/25/16 10:15 Urine Urobilinogen Negative (Negative) 09/25/16 10:15 Ur Leukocyte Esterase Trace (Negative) H 09/25/16 10:15 Urine WBC (Auto) Trace(0-5/hpf) (Absent) 09/25/16 10:15 Urine RBC (Auto) 3+(>10/hpf) (Absent) H 09/25/16 10:15 Urine Bacteria Absent (Absent) 09/25/16 10:15 Urine Glucose Negative (Negative) 09/25/16 10:15 Influenza A (Rapid) Negative (Negative) 09/25/16 11:51 Influenza B (Rapid) Negative (Negative) 09/25/16 11:51 - Objective Active Medications: Acetaminophen (Tylenol Tab*) 650 mg PO Q4H PRN PRN Reason: FEVER/PAIN Albuterol (Ventolin 2.5 Mg/3 Ml Neb.Soco*) 2.5 mg INH Q2H PRN PRN Reason: SOB/WHEEZING Alprazolam (Xanax Tab*) 0.5 mg PO QID PRN PRN Reason: TREMORS Budesonide (Pulmicort Neb*) 0.25 mg INH BID JONAH Dextrose (D50w Syringe 50 Ml*) 12.5 gm IV PUSH .FOR FS < 60 - SS PRN PRN Reason: FS < 60 Formoterol Fumarate (Perforomist Neb.Soln*(Nf)) 20 mcg INH BID [facility] Heparin Sodium (Porcine) (Heparin Vial(*)) 5,000 units SUBCUT Q8HR [facility] Last Admin: 09/25/16 13:41 Dose: 5,000 units Sodium Chloride (Ns 0.9% 1000 Ml*) 1,000 mls @ 150 mls/hr IV PER RATE [facility] Last Admin: 09/25/16 10:49 Dose: 150 mls/hr Cefepime HCl 1 gm/ Sodium (Chloride) 50 mls @ 100 mls/hr IVPB Q24H [facility] Linezolid (Zyvox 600 Mg Ivpremix(*)) 600 mg in 300 mls @ 300 mls/hr IVPB Q12H [facility] Sodium Chloride (Ns 0.9% 1000 Ml*) 1,000 mls @ 125 mls/hr IV PER RATE [facility] Insulin Glargine (Lantus(*)) 30 units SUBCUT QPM [facility] Insulin Human Lispro (Humalog*) 0 units SUBCUT AC [facility] PRN Reason: Protocol Last Admin: 09/25/16 13:39 Dose: 3 units Magnesium Oxide (Magox 400 Tab*) 400 mg PO EVERY OTHER DAY [facility] Montelukast Sodium (Singulair Tab*) 10 mg PO DAILY PRN PRN Reason: Allergy Symptoms Ondansetron HCl (Zofran Inj*) 4 mg IV Q6H PRN PRN Reason: NAUSEA Potassium Chloride (Klor Con Er Tab*) 20 meq PO TID [facility] Last Admin: 09/25/16 13:40 Dose: 20 meq Prednisone (Deltasone Tab*) 10 mg PO DAILY [facility] Last Admin: 09/25/16 13:44 Dose: 10 mg Vital Signs: Vital Signs: Temp Pulse Resp BP Pulse Ox 98.9 F 95 16 93/45 97 09/25/16 15:40 09/25/16 15:40 09/25/16 15:40 09/25/16 15:40 09/25/16 15:40 Intake and Output: Intake & Output 09/23/16 09/24/16 09/25/16 09/26/16 06:59 06:59 06:59 06:59 Intake Total 1981 Output Total 900 Balance 1081 Intake: IV Fluids 1750 NS (0.9%) 1600 IVPB 106 KCL 106 Oral 125 Output: Bonilla 900 ADLs: Meal Record Start: 09/25/16 11: 02 Freq: DAILY@0900,1400,1800 Status: Active Created 09/25/16 11:02 System (Rec: 09/25/16 11:02 System [email or web address]) Document 09/25/16 13:06 [id number] (Rec: 09/25/16 13:07 [id number] [email or web address]) Intake and Output Start: 09/25/16 11: 02 Freq: DAILY@0600,1400,2200 Status: Active Created 09/25/16 11:02 System (Rec: 09/25/16 11:02 System [email or web address]) Document 09/25/16 13:06 [id number] (Rec: 09/25/16 13:07 [id number] [email or web address])
[2016-09-25] MEDS: Insulin GLARGINE(*) 1 UNITS UNIT SUBCUT SCH (17:29)
[2016-09-25] MEDS: Cefepime(*) 1 GM in NS 0.9% 50 ML* 50 ML IVPB SCH (18:15)
[2016-09-25 18:50] LABS: BUN/Creatinine Ratio 30.5 (8-20); Calcium 8.3 mg/dL (8.6-10.3); EGFR African American 32.6 (>60); EGFR Non-African American 25.3 (>60); Potassium 3.1 mmol/L (3.5-5.0)
[2016-09-25] MEDS: Linezolid 600 MG IVPREMIX(*) 600 MG/300 ML BAG IVPB SCH ×2 (19:00→23:44)
[2016-09-25] MEDS: NS 0.9% 1000 ML* 1,000 ML IV SCH (20:48)
--- NOTE | 2016-09-25 20:49 | CONS ---
PALLIATIVE CARE CONSULTATION: DATE OF CONSULT: 09/25/16 ORDERING PROVIDER: Shahbaz Groves NP. CODE STATUS: The patient's code status is DNR with a MOLST form in the chart. The MOLST form specifies DNR/DNI. HISTORY OF PRESENT ILLNESS: This is the third palliative care consultation for this 80-year-old man who has had multiple admissions to the hospital during this past year. He was first consulted on in October by me when he was admitted with gouty arthritis, COPD and hypokalemia. He was consulted on as recently as 08/31/16 by nurse practitioner, Vanessa Gonzales, who outlined his multiple chronic illnesses. On both occasions, the patient was considered most suitable for an outpatient palliative service with home care, and was referred to [facility], which enrolled him for several months between hospital admissions. PAST MEDICAL HISTORY: Includes atrial fibrillation, type 2 diabetes, oxygen- dependent COPD, BALDOMERO, CHF, chronic kidney disease stage 3, and hyperuricemia with gout. He was discharged from the hospice of the [facility] after 6 months without significant deterioration. After his last consultation here less than a month ago, he was apparently told by his primary care physician, Dr. Colon, that he was not appropriate for hospice services. He is admitted on this occasion with an immediate precipitating event involving trauma to his indwelling Bonilla with hematuria, which was alarming to him in light of his anticoagulation on Xarelto. However, in the emergency room, he was found to have a white blood cell count of 17.7, hemoglobin 10.6, hematocrit 34 with microcytosis and hypochromasia, as well as a potassium which is low again at 2.4, elevated lactic acid at 3.0, and BUN of 85 with creatinine of 3.0. His INR was 2.08. I met with the patient in the company of his . The patient was quite somnolent and much of the discussion took place with the patient's , who is his chief emt basic at home. They have been receiving palliative support through [facility], with 3 nurse visits a week and some home health aide support as well. We discussed the fact that the patient has been admitted 7 times previously in the last year, that he has little to gain from being in the hospital, and his agreed that the stress of coming to the hospital repeatedly is wearing on her . He himself was somewhat somnolent, but did wake up adequately to agree that he would prefer to be comfortable at home. They both specified that they are not interested in institutional placement at this time and that they would like to have any services that are available made at home. Lab values on this admission are specified above. MEDICATIONS: The patient's current medications include: 1. Albuterol. 2. Budesonide. 3. Singulair. 4. Chronic prednisone for his COPD. 5. Xarelto for his atrial fibrillation and history of DVT. 6. Insulin, both glargine and lispro. 7. Linezolid. 8. Magnesium oxide. 9. Potassium chloride 20 mEq p.o. t.i.d. PHYSICAL EXAM: The patient has a blood pressure of 93/45. He is on 3 L of oxygen as he is at home with an oxygen saturation 97%. His heart rate is 95 with a respiratory rate of 16. He currently weighs 229 pounds, which is not a significant change from previously. He is normocephalic with poor dentition. No scleral icterus. Pupils equal, round, reactive to light. His oropharynx is clear. His neck is unremarkable except for 2 cm of JVD above the angle of Evan. No thyroid enlargement or tracheal deviation. Cardiac exam reveals an irregularly irregular rhythm. No prominent murmurs. He has distant breath sounds, but no significant rales. His abdomen is distended with normoactive bowel sounds and no obvious hepatosplenomegaly. Extremities show woody induration and venous stasis change with some ulceration and dry skin. He has 3 + pitting edema bilaterally. No palpable cords. Negative Krishan's and intact dorsalis pedis pulses bilaterally. Neurologically, the patient shows no focal deficits. He is alert and oriented, but falls asleep easily during the examination. ASSESSMENT: This 80-year-old man has multiple medical problems and has had multiple hospitalizations. It would be in his interest as well as that of the hospital to try to prevent such frequent hospitalizations. He would be an excellent candidate for an outpatient palliative care program, and as I have previously specified, I think he is an appropriate candidate for hospice services. I think the combination of his significant chronic obstructive pulmonary disease and his borderline renal function make him an appropriate candidate, and he is likely to succumb from sepsis at some point. The patient and his understand that hospitalizations are not necessarily in his benefit and he would like to be able to remain at home if he had support services that he could rely on. TIME SPENT: Over 60 minutes were spent in chart review, interview of the patient and his , and coordination of care. [id number]/[facility] #: [id number] HILDA
[2016-09-25] MEDS: CMC:Formoterol 20 MCG/2ML NEB (NF) 10 MCG/ML NEB.SOLN INH SCH (21:07)
[2016-09-25] MEDS: Budesonide NEB* 0.25 MG/2 ML NEB.SOLN INH SCH (21:07)
[2016-09-26 04:52] LABS: Hematocrit 27 % (42-52); Hemoglobin 8.3 g/dl (14.0-18.0); Mean Corpuscular HGB Conc 31 g/dl (31-36); Mean Corpuscular Hemoglobin 23 pg (27-31); Mean Platelet Volume 8 um3 (7.4-10.4); Red Blood Count 3.64 10^6/ul (4.0-5.4); Red Cell Distribution Width 19 % (10.5-15); White Blood Count 12.7 10^3/ul (3.5-10.8)
[2016-09-26 05:00] LABS: Comments Flag Yes; Mean Corpuscular Volume 74 fL (80-94)
[2016-09-26 05:02] LABS: BUN/Creatinine Ratio 31.2 (8-20); Calcium 7.9 mg/dL (8.6-10.3); EGFR African American 36.8 (>60); EGFR Non-African American 28.6 (>60); Potassium 3.1 mmol/L (3.5-5.0)
[2016-09-26] MEDS: Heparin VIAL(*) 5000 UNITS/ML VIAL (FIVE THOUSAND) SUBCUT SCH ×2 (06:11→13:16)
[2016-09-26] MEDS ORDERED: Magnesium Sulfate 2 GM IV* 2 GM/50 ML BAG IVPB ONE (08:05)
[2016-09-26] MEDS: Insulin LISPRO* 1 UNITS UNIT SUBCUT SCH ×3 (08:14→17:38)
[2016-09-26 08:21] LABS: C Reactive Protein 129.16 mg/L (< 5.00); Magnesium 1.7 mg/dL (1.9-2.7)
[2016-09-26] MEDS: predniSONE TAB* 10 MG PO SCH (08:25)
[2016-09-26] MEDS: Potassium Chlor TAB* 20 MEQ TAB.ER PO SCH ×3 (08:40→20:24)
[2016-09-26] MEDS: Budesonide NEB* 0.25 MG/2 ML NEB.SOLN INH SCH ×2 (08:54→22:14)
[2016-09-26] MEDS: CMC:Formoterol 20 MCG/2ML NEB (NF) 10 MCG/ML NEB.SOLN INH SCH ×2 (08:54→22:13)
[2016-09-26] MEDS: Cefepime(*) 1 GM in NS 0.9% 50 ML* 50 ML IVPB SCH (13:16)
[2016-09-26] MEDS: Linezolid 600 MG IVPREMIX(*) 600 MG/300 ML BAG IVPB SCH (14:20)
--- NOTE | 2016-09-26 16:00 | RAD ---
INDICATION: Infiltrate COMPARISON: Chest x-ray September 25, 2016 TECHNIQUE: PA and lateral dual-energy views were obtained. FINDINGS: Bones/Soft Tissues: There are no acute bony findings. Cardiomediastinal: The cardiomediastinal silhouette is normal. Lungs: There is now obscuration left hemidiaphragm which could related to infiltrate or atelectasis. Remaining lung roy are clear. There is mild hyperinflation. Pleura: There are no pleural effusions. Other: None IMPRESSION: INFILTRATE OR ATELECTASIS LEFT LUNG BASE
--- NOTE | 2016-09-26 16:36 | PN ---
Subjective Date of Service: 09/26/16 Interval History: This is an 80 yo gentleman with multiple comorbid conditions including afib, DM , COPD, BALDOMERO, BPH with chronic indwelling Bonilla, CKD, CHF and chronic microcytic anemia with frequent hospital admissions who was brought the ED last night after his Bonilla was caught on something causing gross hematuria and pelvic pain. Bonilla was replaced in the ER and his urine cleared. He had a noted leukocytosis and fever however and request was made for admission. Source of infection was not evident but he was placed on empiric broad spectrum antibiotics. Patient offers no acute complaints this am. He does admit to an occasional productive cough, but does not believe it was new. He denies dyspnea, abdominal pain, n/v. Objective Active Medications: Acetaminophen (Tylenol Tab*) 650 mg PO Q4H PRN PRN Reason: FEVER/PAIN Last Admin: 09/25/16 20:45 Dose: 650 mg Albuterol (Ventolin 2.5 Mg/3 Ml Neb.Soco*) 2.5 mg INH Q2H PRN PRN Reason: SOB/WHEEZING Alprazolam (Xanax Tab*) 0.5 mg PO QID PRN PRN Reason: TREMORS Budesonide (Pulmicort Neb*) 0.25 mg INH BID [facility] Last Admin: 09/26/16 08:54 Dose: 0.25 mg Dextrose (D50w Syringe 50 Ml*) 12.5 gm IV PUSH .FOR FS < 60 - SS PRN PRN Reason: FS < 60 Formoterol Fumarate (Perforomist Neb.Soln*(Nf)) 20 mcg INH BID [facility] Last Admin: 09/26/16 08:54 Dose: 20 mcg Heparin Sodium (Porcine) (Heparin Vial(*)) 5,000 units SUBCUT Q8HR [facility] Last Admin: 09/26/16 13:16 Dose: 5,000 units Cefepime HCl 1 gm/ Sodium (Chloride) 50 mls @ 100 mls/hr IVPB Q24H [facility] Last Admin: 09/26/16 13:16 Dose: 100 mls/hr Linezolid (Zyvox 600 Mg Ivpremix(*)) 600 mg in 300 mls @ 300 mls/hr IVPB Q12H [facility] Last Admin: 09/26/16 14:20 Dose: 300 mls/hr Sodium Chloride (Ns 0.9% 1000 Ml*) 1,000 mls @ 75 mls/hr IV PER RATE [facility] Last Admin: 09/25/16 20:48 Dose: 75 mls/hr Insulin Glargine (Lantus(*)) 30 units SUBCUT QPM [facility] Last Admin: 09/25/16 17:29 Dose: 30 units Insulin Human Lispro (Humalog*) 0 units SUBCUT AC [facility] PRN Reason: Protocol Last Admin: 09/26/16 13:15 Dose: 3 units Magnesium Oxide (Magox 400 Tab*) 400 mg PO DAILY [facility] Montelukast Sodium (Singulair Tab*) 10 mg PO DAILY PRN PRN Reason: Allergy Symptoms Last Admin: 09/25/16 22:09 Dose: 10 mg Ondansetron HCl (Zofran Inj*) 4 mg IV Q6H PRN PRN Reason: NAUSEA Potassium Chloride (Klor Con Er Tab*) 20 meq PO TID [facility] Last Admin: 09/26/16 13:18 Dose: 20 meq Prednisone (Deltasone Tab*) 10 mg PO DAILY [facility] Last Admin: 09/26/16 08:25 Dose: 10 mg Vital Signs: Temp Pulse Resp BP Pulse Ox 98.3 F 85 18 148/67 98 09/26/16 11:18 09/26/16 11:18 09/26/16 11:18 09/26/16 11:18 09/26/16 11:18 Appearance: Well appearing elderly gentleman in NAD Ears/Nose/Mouth/Throat: Mucous Membranes Moist Respiratory: Symmetrical Chest Expansion and Respiratory Effort, Clear to Auscultation Cardiovascular: NL Sounds; No Murmurs; No JVD, RRR Abdominal: NL Sounds; No Tenderness; No Distention Extremities: - - 2+ edema bilaterally Skin: No Rash or Ulcers Neurological: Alert and Oriented x 3 Result Diagrams: 09/26/16 04:38 09/26/16 04:38 Additional Lab and Data: . Microbiology and Other Data: Microbiology 09/25/16 10:24 Aerobic Blood Culture - Preliminary Blood Venous No Growth Day 1 Anaerobic Blood Culture - Preliminary No Growth Day 1 09/25/16 10:15 Urine Culture - Final Urine 09/25/16 10:50 Influenza Types A,B Antigen (ROSANNE) - Final Nasopharyngeal Specimen received for Influenza A/B Molecular testing Diagnostic Imaging: Initial CXR - NAD CT abd/pelvis - NAD Repeat CXR 09/26 - possible L basilar infiltrate v. atelectasis Assess/Plan/Problems-Billing Assessment: This is an 80 yo gentleman with frequent hospital admissions and multiple comorbidities who was admitted yesterday with noted fever and leukocytosis without a clear source. - Patient Problems (1) Pneumonia Comment: Repeat CXR today suggests a LLL infiltrate and patient has been complaining of cough but without dyspnea or hypoxia With leukocytosis, fever, elevated CRP and procalcitonin Will continue Cefepime, but dc Linezolid and add azithromycin (2) Gross hematuria Comment: Now resolved Secondary to traumatic Bonilla dislodgement (3) Acute on chronic renal insufficiency Comment: Likely due to hypovolemia Stage III at baseline with Cr ~1.8-2 Cr at admission 3, improved to 2.2 today Avoid nephrotoxic agents Lasix held, will resume at 50% usual dose tomorrow am L (4) Diabetes Comment: Glucose appears relatively well controlled Will continue usual home dose of Lantus and will cover hyperglycemia with SS Humalog (5) Sleep apnea Comment: Continue home BiPAP (6) Afib Comment: Rate controlled Continue Cardizem Will resume home Xarelto (7) BPH (benign prostatic hyperplasia) Comment: With chronic indwelling Bonilla (8) COPD (chronic obstructive pulmonary disease) Comment: without evidence of acute exacerbation continue home inhaled medications and supp O2 (9) Chronic respiratory failure Comment: Secondary to COPD Requires chornic supp O2 and steroid therapy Status and Disposition: Repeat CXR now identifies lungs as likely source of infection, antibiotics have been appropriately targeted, likely discharge home tomorrow. Will call PCP prior to discharge to discuss Hospice referral.
--- NOTE | 2016-09-26 16:37 | RAD ---
INDICATION: Abdominal pain evaluate for source of infection. COMPARISON: Comparison is made with a prior CT of the abdomen and pelvis from September 25, 2016. TECHNIQUE: Multiple real-time images of the right upper quadrant were obtained. FINDINGS: There are multiple areas of increased echogenicity with shadowing filling the gallbladder most consistent with multiple gallstones. No gallbladder wall thickening is seen or pericholecystic fluid is seen. No intra or extrahepatic ductal distention is present. The common bile duct measured 0.3 cm in diameter. The liver is mildly enlarged with increased echogenicity which correlates with fatty infiltration on the prior CT study. The pancreas is obscured by overlying bowel gas. The right kidney is normal in size. No hydronephrosis is present. There is a small simple cyst in the midportion of the kidney measuring 1.4 x 0.9 x 1.5 cm. IMPRESSION: 1. CHOLELITHIASIS. 2. HEPATOMEGALY AND HEPATIC STEATOSIS.
[2016-09-26] MEDS ORDERED: Azithromycin IV(*) 500 MG in NS 0.9% 250 ML* 250 ML IVPB SCH (17:00)
[2016-09-26] MEDS: Insulin GLARGINE(*) 1 UNITS UNIT SUBCUT SCH (17:38)
[2016-09-26] MEDS: NS 0.9% 1000 ML* 1,000 ML IV SCH (20:24)
[2016-09-27 05:21] LABS: Hematocrit 27 % (42-52); Hemoglobin 8.4 g/dl (14.0-18.0); Mean Corpuscular HGB Conc 32 g/dl (31-36); Mean Corpuscular Hemoglobin 23 pg (27-31); Mean Platelet Volume 9 um3 (7.4-10.4); Red Blood Count 3.63 10^6/ul (4.0-5.4); Red Cell Distribution Width 19 % (10.5-15); White Blood Count 8.5 10^3/ul (3.5-10.8)
[2016-09-27 05:23] LABS: Comments Flag Yes; Mean Corpuscular Volume 74 fL (80-94)
[2016-09-27 05:39] LABS: BUN/Creatinine Ratio 32.2 (8-20); Calcium 8.4 mg/dL (8.6-10.3); EGFR African American 48.6 (>60); EGFR Non-African American 37.8 (>60); Magnesium 2.2 mg/dL (1.9-2.7); Potassium 3.5 mmol/L (3.5-5.0)
[2016-09-27] MEDS ORDERED: Furosemide TAB* 40 MG PO SCH (08:00)
[2016-09-27] MEDS: Insulin LISPRO* 1 UNITS UNIT SUBCUT SCH (08:09)
[2016-09-27] MEDS: CMC:Formoterol 20 MCG/2ML NEB (NF) 10 MCG/ML NEB.SOLN INH SCH (08:54)
[2016-09-27] MEDS: Budesonide NEB* 0.25 MG/2 ML NEB.SOLN INH SCH (08:55)
[2016-09-27] MEDS ORDERED: Magnesium Oxide TAB* 400 MG PO SCH ×2 (09:00)
[2016-09-27 09:02] VITALS: BP 130/75
[2016-09-27] MEDS: Potassium Chlor TAB* 20 MEQ TAB.ER PO SCH (09:32)
[2016-09-27] MEDS: predniSONE TAB* 10 MG PO SCH (09:33)
[2016-09-27] MEDS ORDERED: Rivaroxaban TAB(*) 15 MG PO SCH (17:00)
--- NOTE | 2016-09-28 11:24 | DS ---
AMENDED REPORT NOW INCLUDES CO-SIGNER - ESIGNED BEFORE ADJUSTMENT DISCHARGE SUMMARY: DATE OF ADMISSION: 09/25/16 DATE OF DISCHARGE: 09/27/16 PRIMARY CARE PROVIDER: Dr. Trinidad Colon DISCHARGING PROVIDER: GURINDER Branham SUPERVISING PHYSICIAN: Myranda Garrison.* (DICTATED BY GURINDER BRANHAM) PRIMARY DISCHARGE DIAGNOSES: 1. Traumatic dislodgement of Bonilla catheter with gross hematuria, now resolved. 2. Pneumonia. 3. Acute on chronic kidney failure. SECONDARY DISCHARGE DIAGNOSES: 1. Atrial fibrillation chronically anticoagulated with Xarelto. 2. Insulin-dependent diabetes. 3. Chronic respiratory failure secondary to COPD, requiring supplemental oxygen at baseline. 4. Obstructive sleep apnea, compliant with BiPAP therapy. 5. BPH with chronic indwelling Bonilla catheter. 6. Chronic diastolic heart failure with preserved ejection fraction. 7. Chronic microcytic anemia. DISCHARGE MEDICATIONS: 1. Humulin R on the sliding scale subcu 3 times daily with meals. 2. Xanax 0.5 mg p.o. q.i.d. as needed for anxiety. 3. Morphine sulfate 20 mg per 5 mL with an instruction to take 5 to 20 mg p.o. q.1 h. p.r.n. pain. 4. Acetaminophen 500 mg p.o. q.6 h. p.r.n. pain or fever. 5. Nebulized albuterol inhaled q.4 h. as needed for shortness of breath. 6. Allopurinol 100 mg p.o. daily. 7. Benzonatate 100 mg p.o. t.i.d. as needed for cough. 8. Pulmicort 0.25 mg inhaled twice daily. 9. Vitamin D3 2000 units p.o. daily. 10. Diltiazem 240 mg p.o. daily. 11. Docusate 100 mg p.o. daily. 12. Fluticasone nasal spray 2 sprays in each nostril daily. 13. Formoterol 20 mcg per 2 mL inhaled twice daily. 14. Lasix 80 mg p.o. b.i.d. 15. Lantus 30 units subcutaneously daily. 16. Ipratropium 0.5 mg inhaled q.i.d. as needed for shortness of breath. 17. Levaquin 750 mg p.o. q.48 h. x10 days, total of 5 doses. 18. Magnesium oxide 400 mg p.o. daily. 19. Singulair 10 mg p.o. daily. 20. MiraLAX 17 g p.o. daily. 21. Potassium chloride 20 mEq p.o. t.i.d. 22. Xarelto 15 mg p.o. daily. 23. Senna 8.6 mg 1 tablet p.o. at bedtime as needed for constipation. 24. Terazosin 10 mg p.o. at bedtime. 25. Prednisone 10 mg p.o. daily. MEDICATION CHANGES: Levaquin 750 mg p.o. q.48 h. x10 days, total of 5 doses. HOSPITAL IMAGIN. Chest x-ray, 09/25/16, shows no acute process. 2. CT of the abdomen and pelvis, 09/25/16, shows no acute process. 3. Gallbladder ultrasound shows cholelithiasis without gallbladder wall thickening and a normal common bile duct with evidence of hepatomegaly and hepatic steatosis. 4. Repeat chest x-ray, 09/26/16, shows a possible infiltrate versus atelectasis at the left lung base. HOSPITAL COURSE: This is an 80-year-old gentleman with an extensive medical history including chronic respiratory failure secondary to COPD, atrial fibrillation, insulin-dependent diabetes, obstructive sleep apnea, BPH with a chronic indwelling Bonilla catheter, diastolic heart failure, gout, and chronic microcytic anemia, who presented after getting his Bonilla catheter stuck on a piece of furniture and dislodging it, causing extreme pelvic pain and gross hematuria. Bonilla catheter was replaced in the emergency department and his pain resolved and his urine cleared. He was noted to have a fever to 102 degrees Fahrenheit and a leukocytosis of 17,000, initial source of infection was not clear. Emergency department requested admission for further evaluation. Initial chest x-ray and CT of the abdomen and pelvis did not show a clear source of infection. Urinalysis showed no evidence of infection. The patient had been complaining of a mild cough that had started. He underwent repeat chest x-ray as well as a gallbladder ultrasound the following day. Repeat chest x-ray suggested an infiltrate in the left lung base. The gallbladder ultrasound was benign. The patient had initially been empirically started on broad-spectrum coverage for hospital-acquired pathogens with cefepime and linezolid. Antibiotics were narrowed to cefepime and azithromycin. Leukocytosis improved and he remained afebrile throughout his hospital stay. He had no further complaints regarding his Bonilla catheter. DISPOSITION: The patient is being discharged to home with treatment for pneumonia with Levaquin. He is receiving a renally adjusted dose of every other day. There was discussion as to the appropriateness of hospice referral. Dr. Dede Smith consulted and did feel that he was appropriate for hospice. His is interested in pursuing this and patient has previously been followed by hospice and services at some point had been discontinued as patient was medically stable. The patient is on the fence whether he would like to pursue hospice services again. He is concerned that his options would be limited in the case of severe illness in the future. He and his will plan to discuss this further but a referral was initiated at the time of discharge. Also recommend discussing this further with his primary care provider and a message was left with her at the time of discharge. The patient does require close followup with his primary care provider. GURINDER BRANHAM CC: Dr. Trinidad Colon * [id number]/[facility] #: [id number] HILDA
== END 2016-09-27 12:50 | disposition home or self-care (01) | DRG 871 ==
LOC: ED 06:39 → MEDTELE 09:38
PROVIDERS: ADMIT Hospitalist; ATTEND Internal Medicine
DX: A41.9 Sepsis, unspecified organism (principal); J18.9 Pneumonia, unspecified organism; N17.9 Acute kidney failure, unspecified; J96.10 Chronic respiratory failure, unspecified whether with hypoxia or hypercapnia; I13.0 Hypertensive heart and chronic kidney disease with heart failure and stage 1 through stage 4 chronic kidney disease, or unspecified chronic kidney disease; E11.22 Type 2 diabetes mellitus with diabetic chronic kidney disease; I50.32 Chronic diastolic (congestive) heart failure; R16.0 Hepatomegaly, not elsewhere classified; I48.91 Unspecified atrial fibrillation; L03.90 Cellulitis, unspecified; T83.028A Displacement of other urinary catheter, initial encounter; J44.9 Chronic obstructive pulmonary disease, unspecified; G47.33 Obstructive sleep apnea (adult) (pediatric); N40.0 Benign prostatic hyperplasia without lower urinary tract symptoms; N18.3 Chronic kidney disease, stage 3 (moderate); M10.9 Gout, unspecified; Z66 Do not resuscitate; E87.6 Hypokalemia; E11.51 Type 2 diabetes mellitus with diabetic peripheral angiopathy without gangrene; J45.909 Unspecified asthma, uncomplicated; K21.9 Gastro-esophageal reflux disease without esophagitis; M19.90 Unspecified osteoarthritis, unspecified site; G89.29 Other chronic pain; M54.9 Dorsalgia, unspecified; H91.90 Unspecified hearing loss, unspecified ear; F41.9 Anxiety disorder, unspecified; R31.0 Gross hematuria; Y73.1 Therapeutic (nonsurgical) and rehabilitative gastroenterology and urology devices associated with adverse incidents; K80.20 Calculus of gallbladder without cholecystitis without obstruction; K76.0 Fatty (change of) liver, not elsewhere classified; D50.9 Iron deficiency anemia, unspecified; Z86.718 Personal history of other venous thrombosis and embolism; Z88.0 Allergy status to penicillin; Z88.2 Allergy status to sulfonamides; Z80.8 Family history of malignant neoplasm of other organs or systems; Z88.1 Allergy status to other antibiotic agents; Z99.81 Dependence on supplemental oxygen; Z87.01 Personal history of pneumonia (recurrent); Z97.4 Presence of external hearing-aid; Z83.3 Family history of diabetes mellitus; Z80.9 Family history of malignant neoplasm, unspecified; Z79.4 Long term (current) use of insulin; Z79.01 Long term (current) use of anticoagulants; Z79.52 Long term (current) use of systemic steroids
CPT/HCPCS: 36415; 71010; 71020; 74176; 76705; 80048; 81003; 81015; 82570; 83605; 83735; 84145; 84300; 85025; 85610; 86140; 87040; 87086; 87502; 93005; 94640; 94760; 96365; 99284; A9270-GY; J0456; J0692; J1580; J1644; J2020; J3475; J3480; J7512

== ENCOUNTER 2016-10-24 15:08 | Emergency (ER) | payer MEDICARE ==
[2016-10-24] MEDS ORDERED: NS 0.9% 1000 ML* 1,000 ML IV ONE (15:39)
[2016-10-24 16:39] LABS: Hematocrit 33 % (42-52); Hemoglobin 10.2 g/dl (14.0-18.0); Mean Corpuscular HGB Conc 31 g/dl (31-36); Mean Corpuscular Hemoglobin 22 pg (27-31); Mean Platelet Volume 8 um3 (7.4-10.4); Red Blood Count 4.62 10^6/ul (4.0-5.4); Red Cell Distribution Width 20 % (10.5-15)
[2016-10-24 16:40] LABS: Comments Flag Yes; Mean Corpuscular Volume 70 fL (80-94)
[2016-10-24 17:04] LABS: Albumin 3.7 g/dL (3.2-5.2); BUN/Creatinine Ratio 34.4 (8-20); C Reactive Protein 20.85 mg/L (< 5.00); Calcium 9.2 mg/dL (8.6-10.3); EGFR African American 36.8 (>60); EGFR Non-African American 28.6 (>60); Globulin 3.5 g/dL (2-4); Total Bilirubin 0.4 mg/dL (0.2-1.0); Total Protein 7.2 g/dL (6.4-8.9)
[2016-10-24 17:06] LABS: Potassium 2.8 mmol/L (3.5-5.0)
[2016-10-24] MEDS ORDERED: Potassium Chlor TAB* 20 MEQ TAB.ER PO ONE (17:24)
[2016-10-24] MEDS: KCL 10 MEQ/50 ML IVPREMIX* 10 MEQ/50 ML BAG IV SCH ×3 (18:10→21:00)
[2016-10-24 18:45] LABS: Magnesium 1.8 mg/dL (1.9-2.7)
[2016-10-24] MEDS ORDERED: Magnesium Oxide TAB* 400 MG PO ONE (19:04)
--- NOTE | 2016-10-24 19:08 | ED ---
Zeke López Adam, scribed for Nicholas Linares MD on 10/24/16 at 1547 . Complex/Multi-Sys Presentation - HPI Summary HPI Summary: Pt is an 80 year old male sent by his PCP with concerns about hypokalemia. The pt had his blood drawn yesterday and was informed today that his potassium levels are low and that he should come to the ED. The pt denies any CP, SOB, cough, abdominal pain, diarrhea, or any other complaints. He states that he just "wants to take a nap." PMHx of DM, HTN, CHF, DVT, PE, COPD, PVD, BPH, and chronich renal failure. - History Of Current Complaint Chief Complaint: EDGeneral Time Seen by Provider: 10/24/16 15:39 Hx Obtained From: Patient Onset/Duration: Gradual Onset, Lasting Days, Still Present Timing: Constant Severity Currently: Mild Severity Initially: Mild Character: Unable To Describe - Pt is asymptomatic, except for stating that he wants to take a nap Aggravating Factor(s): Unknown Alleviating Factor(s): Nothing Associated Signs And Symptoms: Positive: Other - Fatigue - Allergies/Home Medications Allergies/Adverse Reactions: Allergies Allergy/AdvReac Type Severity Reaction Status Date / Time Amoxicillin [From Augmentin] Allergy Unknown Unknown Verified 06/27/16 12:08 Reaction Details Clavulanic Acid Allergy Unknown Unknown Verified 06/27/16 12:08 [From Augmentin] Reaction Details Penicillins [PCN] Allergy Unknown Unknown Verified 06/27/16 12:08 Reaction Details Sulfa Drugs Allergy Unknown Unknown Verified 06/27/16 12:08 Reaction Details PMH/Surg Hx/FS Hx/Imm Hx Endocrine/Hematology History: Reports: Hx Anticoagulant Therapy, Hx Diabetes, Other Endocrine/Hematological Disorders - Hx hypokalemia Denies: Hx Thyroid Disease Cardiovascular History: Reports: Hx Congenital Heart Disease, Hx Congestive Heart Failure, Hx Deep Vein Thrombosis, Hx Hypertension, Hx Peripheral Vascular Disease, Other Cardiovascular Problems/Disorders - venous insufficiency Denies: Hx Pacemaker/ICD Respiratory History: Reports: Hx Asthma, Hx Chronic Obstructive Pulmonary Disease (COPD) - 3L O2 at home, Hx Pneumonia, Hx Pulmonary Embolism, Hx Sleep Apnea - bipap used at home Denies: Other Respiratory Problems/Disorders GI History: Reports: Hx Gastroesophageal Reflux Disease Denies: Other GI Disorders History: Reports: Hx Acute Renal Failure, Hx Benign Prostatic Hyperplasia - chronic catheter, Hx Chronic Renal Failure, Hx Renal Disease Denies: Hx Dialysis, Other Problems/Disorders Musculoskeletal History: Reports: Hx Arthritis, Hx Back Problems - chronic back pain, Hx Gout, Other Musculoskeletal History - CHRONIC CELLULITIS Sensory History: Reports: Hx Contacts or Glasses, Hx Vision Problem, Hx Hearing Aid, Hx Hearing Problem Denies: Hx Deafness Opthamlomology History: Reports: Hx Contacts or Glasses, Hx Vision Problem Neurological History: Denies: Hx Dementia, Hx Seizures Psychiatric History: Reports: Hx Anxiety Denies: Hx Panic Disorder, Hx Substance Abuse, Other Psychiatric Issues/ Disorders - Surgical History Surgery Procedure, Year, and Place: SPHENOIDOTOMY 2008. CATARACT 2007. ETHMOIDECTOMY 2008. SINUSOTOMY 2008. HERNIA REPAIR Hx Anesthesia Reactions: No - Immunization History Date of Tetanus Vaccine: Unk Date of Influenza Vaccine: None Infectious Disease History: Yes Infectious Disease History: Denies: Hx Hepatitis, Hx Human Immunodeficiency Virus (HIV), Traveled Outside the [place] in Last 30 Days - Family History Known Family History: Positive: Diabetes, Other - Cancer - Social History Occupation: Retired Lives: With Family - Alcohol Use: None Hx Substance Use: No Substance Use Type: Reports: None Hx Tobacco Use: No Smoking Status (MU): Never Smoked Tobacco Review of Systems Positive: Fatigue. Negative: Fever Negative: Chest Pain Negative: Shortness Of Breath, Cough Negative: Abdominal Pain, Diarrhea All Other Systems Reviewed And Are Negative: Yes Physical Exam - Summary Physical Exam Summary: VITAL SIGNS: Reviewed. GENERAL: Patient is a well developed and nourished male who is lying comfortable in the stretcher. Patient is not in any acute respiratory distress. HEAD AND FACE: No signs of trauma. No ecchymosis, hematomas or skull depressions. No sinus tenderness. EYES: PERRLA, EOMI x 2, No injected conjunctiva, no nystagmus. EARS: Hearing grossly intact. Ear canals and tympanic membranes are within normal limits. MOUTH: Oropharynx within normal limits. NECK: Supple, trachea is midline, no adenopathy, no JVD, no carotid bruit, no c- spine tenderness, neck with full ROM. CHEST: Symmetric, no tenderness at palpation LUNGS: Clear to auscultation bilaterally. No wheezing or crackles. CVS: Regular rate and rhythm, S1 and S2 present, no murmurs or gallops appreciated. ABDOMEN: Soft, non-tender. No signs of distention. No rebound no guarding, and no masses palpated. Bowel sounds are normal. EXTREMITIES: FROM in all major joints, no edema, no cyanosis or clubbing. NEURO: Alert and oriented x 3. No acute neurological deficits. Speech is normal and follows commands. SKIN: Dry and warm Triage Information Reviewed: Yes Vital Signs On Initial Exam: Initial Vitals Temp Pulse Resp BP Pulse Ox 96.6 F 64 20 120/53 96 10/24/16 15:27 10/24/16 15:27 10/24/16 15:27 10/24/16 15:27 10/24/16 15:27 Vital Signs Reviewed: Yes - [place] Coma Scale Coma Scale Total: 15 Diagnostics - Vital Signs Vital Signs Temp Pulse Resp BP Pulse Ox 10/24/16 15:27 96.6 F 64 20 120/53 96 - Laboratory Lab Results: Lab Results 10/24/16 10/24/16 Range/Units 16:30 16:30 WBC 13.0 H (3.5-10.8) 10^3/ul RBC 4.62 (4.0-5.4) 10^6/ul Hgb 10.2 L (14.0-18.0) g/dl Hct 33 L (42-52) % MCV 70 L (80-94) fL MCH 22 L (27-31) pg MCHC 31 (31-36) g/dl RDW 20 H (10.5-15) % Plt Count 285 (150-450) 10^3/ul MPV 8 (7.4-10.4) um3 Neut % (Auto) 67.4 (38-83) % Lymph % (Auto) 8.1 L (25-47) % [place] % (Auto) 9.8 H (1-9) % Eos % (Auto) 13.8 H (0-6) % Baso % (Auto) 0.9 (0-2) % Absolute Neuts (auto) 8.8 H (1.5-7.7) 10^3/ul Absolute Lymphs (auto) 1.1 (1.0-4.8) 10^3/ul Absolute Monos (auto) 1.3 H (0-0.8) 10^3/ul Absolute Eos (auto) 1.8 H (0-0.6) 10^3/ul Absolute Basos (auto) 0.1 (0-0.2) 10^3/ul Absolute Nucleated RBC 0 10^3/ul Nucleated RBC % 0 Sodium 130 L (133-145) mmol/L Potassium 2.8 L (3.5-5.0) mmol/L Chloride 87 L (101-111) mmol/L Carbon Dioxide 34 H (22-32) mmol/L Anion Gap 9 (2-11) mmol/L BUN 76 H (6-24) mg/dL Creatinine 2.21 H (0.67-1.17) mg/dL Est GFR ( Amer) 36.8 (>60) Est GFR (Non-Af Amer) 28.6 (>60) BUN/Creatinine Ratio 34.4 H (8-20) Glucose 118 H (70-100) mg/dL Calcium 9.2 (8.6-10.3) mg/dL Magnesium 1.8 L (1.9-2.7) mg/dL Total Bilirubin 0.40 (0.2-1.0) mg/dL AST 18 (13-39) U/L ALT 14 (7-52) U/L Alkaline Phosphatase 75 (34-104) U/L C-Reactive Protein 20.85 H (< 5.00) mg/L Total Protein 7.2 (6.4-8.9) g/dL Albumin 3.7 (3.2-5.2) g/dL Globulin 3.5 (2-4) g/dL Albumin/Globulin Ratio 1.1 (1-3) Result Diagrams: 10/24/16 16:30 10/24/16 16:30 Lab Statement: Any lab studies that have been ordered have been reviewed, and results considered in the medical decision making process. - EKG 15:32 Cardiac Rate: NL - 70 BPM EKG Rhythm: Sinus Rhythm EKG Interpretation: No ST elevations - Additional Comments Diagnostic Additional Comments: Potassium - 2.8 Complex Multi-Symp Course/Dx Course Of Treatment: Pt is an 80 year old male sent by his PCP with concerns about hypokalemia. The pt had his blood drawn yesterday and was informed today that his potassium levels are low and that he should come to the ED. The pt denies any CP, SOB, cough, abdominal pain, diarrhea, or any other complaints. He states that he just "wants to take a nap." PMHx of DM, HTN, CHF, DVT, PE, COPD, PVD, BPH, and chronich renal failure. BW shows WBC count of 13.0, chronic anemia which is actually improved today, hyponatremia with sodium of 130 , and potassium of 2.8. He has chronic renal failure and CRP of 20.85. In the ED course the pt was given KCl PO IV. The pt continues to be asymptomatic and he doesn't have any complaints. The EKG shows no U waves. At this point, since the pt is asymptomatic and is being replenished with potassium, he will be discharged home with a follow-up with his PCP. - Diagnoses Differential Diagnoses/HQI/PQRI: Metabolic Abnormality, Other - hypokalemia Provider Diagnoses: Hypokalemia, Hypomagnesemia Discharge - Discharge Plan Condition: Stable Disposition: HOME Referrals: Trinidad Logan MD [Primary Care Provider] - The documentation as recorded by the Zeke mercer Adam accurately reflects the service I personally performed and the decisions made by me, Nicholas Linares MD.
[2016-10-24 21:08] VITALS: BP 116/61
== END 2016-10-24 22:22 | disposition home or self-care (01) ==
LOC: ED 15:08
DX: E87.6 Hypokalemia (principal); E83.42 Hypomagnesemia; R53.83 Other fatigue; Z88.0 Allergy status to penicillin
CPT/HCPCS: 36415; 80053; 83735; 85025; 86140; 93005; 99283; A9270-GY; J3480

== ENCOUNTER 2016-11-09 12:46 | Inpatient (IN) | payer MEDICARE ==
--- NOTE | 2016-11-09 14:08 | RAD ---
HISTORY: Altered mental status COMPARISONS: September 26, 2016 VIEWS:1: Single frontal portable view of the chest at 1:47 PM FINDINGS: LINES AND TUBES: None. CARDIOMEDIASTINAL SILHOUETTE: The cardiomediastinal silhouette is normal for portable technique. PLEURA: The costophrenic angles are sharp. No pleural abnormalities are noted. LUNG PARENCHYMA: The lungs are clear. ABDOMEN: The upper abdomen is clear. There is no subphrenic gas. BONES AND SOFT TISSUES: No bone or soft tissue abnormalities are noted. IMPRESSION: NO ACTIVE CARDIOPULMONARY DISEASE.
--- NOTE | 2016-11-09 14:10 | RAD ---
HISTORY: Altered mental status COMPARISONS: None TECHNIQUE: Multiple contiguous axial CT scans were obtained of the head without intravenous contrast. FINDINGS: HEMORRHAGE/INFARCT: There is no hemorrhage or acute infarct. MASSES/SHIFT: There is no mass or shift. EXTRA-AXIAL SPACES: There are no extra-axial fluid collections. SULCI AND VENTRICLES: There is diffuse and proportional enlargement of the sulci and ventricles. CEREBRUM: There is hypoattenuation of the periventricular and subcortical white matter. BRAINSTEM: There are no focal parenchymal abnormalities. CEREBELLUM: There are no focal parenchymal abnormalities. VESSELS: The vessels are grossly normal. PARANASAL SINUSES: The paranasal sinuses are clear. ORBITS: The orbits are unremarkable. BONES AND SOFT TISSUE: No bone or soft tissue abnormalities are noted. OTHER: None IMPRESSION: NO ACUTE INTRACRANIAL PATHOLOGY. DIFFUSE INVOLUTIONAL CHANGE WITH CHRONIC SMALL VESSEL ISCHEMIC CHANGES.
[2016-11-09 14:16] LABS: Comments Flag Yes; Hematocrit 34 % (42-52); Hemoglobin 10.3 g/dl (14.0-18.0); Mean Corpuscular HGB Conc 31 g/dl (31-36); Mean Corpuscular Hemoglobin 21 pg (27-31); Mean Platelet Volume 8 um3 (7.4-10.4); Red Blood Count 4.84 10^6/ul (4.0-5.4); Red Cell Distribution Width 19 % (10.5-15); White Blood Count 10.3 10^3/ul (3.5-10.8)
[2016-11-09 14:19] LABS: Mean Corpuscular Volume 69 fL (80-94)
[2016-11-09 14:31] LABS: Ammonia 23 mol/L (16-53)
[2016-11-09 14:33] LABS: ALT 19 U/L (7-52); AST 21 U/L (13-39); Albumin 3.8 g/dL (3.2-5.2); Alkaline Phosphatase 86 U/L (34-104); Anion Gap 9 mmol/L (2-11); BUN/Creatinine Ratio 25.8 (8-20); Blood Urea Nitrogen 59 mg/dL (6-24); CO2 Carbon Dioxide 34 mmol/L (22-32); Calcium 9.2 mg/dL (8.6-10.3); Chloride 90 mmol/L (101-111); Creatine Kinase 62 U/L (10-223); EGFR African American 35.4 (>60); EGFR Non-African American 27.5 (>60); Globulin 3.8 g/dL (2-4); Glucose 140 mg/dL (70-100); Lipase 41 U/L (11.0-82.0); Magnesium 1.8 mg/dL (1.9-2.7); Potassium 3.1 mmol/L (3.5-5.0); Sodium 133 mmol/L (133-145); Total Protein 7.6 g/dL (6.4-8.9)
[2016-11-09 14:36] LABS: B Type Natriuretic Peptide 76 pg/mL
[2016-11-09 14:38] LABS: Troponin I 0.22 ng/mL (<0.04)
[2016-11-09 14:46] LABS: Acetaminophen < 15 mcg/mL; Alcohol < 10 mg/dL (<10)
[2016-11-09] MEDS ORDERED: Aspirin Low Dose CHEW TAB* 81 MG PO ONE (14:53)
[2016-11-09] MEDS ORDERED: Magnesium Sulfate 2 GM IV* 2 GM/50 ML BAG IVPB ONE (14:54)
[2016-11-09 14:57] LABS: TSH (Thyroid Stimulating Horm) 2.05 mcIU/mL (0.34-5.60)
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
[2016-11-09] MEDS ORDERED: Montelukast Sodium TAB* 10 MG PO PRN (16:25)
[2016-11-09] MEDS ORDERED: Senna TAB PO PRN (16:25)
[2016-11-09] MEDS ORDERED: HYDROcodone/ACETAMIN 5-325 MG* 1 TAB PO PRN (16:25)
[2016-11-09] MEDS ORDERED: Ipratropium 0.5MG/2.5ML NEB* 0.5 MG/2.5 ML NEB.SOLN INH PRN (16:25)
[2016-11-09 16:28] LABS: Urine Bacteria Absent (Absent); Urine Bilirubin Negative (Negative); Urine Glucose Negative (Negative); Urine Nitrite Negative (Negative)
[2016-11-09] MEDS ORDERED: Albuterol HFA INHALER* 8 gm MDI INH PRN (16:47)
[2016-11-09] MEDS: Budesonide NEB* 0.25 MG/2 ML NEB.SOLN INH SCH (19:41)
[2016-11-09] MEDS: Potassium Chlor TAB* 20 MEQ TAB.ER PO SCH (21:47)
[2016-11-09] MEDS: Furosemide TAB* 40 MG PO SCH (21:47)
--- NOTE | 2016-11-09 21:59 | HP ---
CC: Dr. Trinidad Colon HISTORY AND PHYSICAL: DATE OF ADMISSION: 11/09/16 PRIMARY CARE PROVIDER: Dr. Trinidad Colon. CHIEF COMPLAINT: The patient was noted to be "unmanageable" at home. He also had been complaining of itchy skin lesions all over his body. HISTORY OF PRESENT ILLNESS: Mr. Desai is an 80-year-old male known to us from previous multiple hospitalizations with chronic multiple comorbid conditions which include oxygen-dependent COPD, history of CHF as well as multiple skin wounds on his bilateral legs in the past who was brought in by his concerned . Apparently, the patient's called their primary care provider that Frank is "short and aggressive with her." The patient's is present in the room and was talking in front of the patient. She very graciously is explaining in front of her that he is not really comfortable at home and he is "ordering her around." It became very difficult and exhausting for the to be able to manage. Mr. Desai is able to take just a few steps with the walker and her visiting nurse service was signed off only to visit them on a weekly basis and that is not enough. Mr. Desai asked the service to consider hospice care, but apparently, they were refused at [facility]. Nevertheless, the patient was evaluated multiple times by our palliative care service and director of our hospice services at [facility] and he was deemed to be a good candidate for hospice every time. The patient had been complaining of itchy skin lesions and she had been putting a steroid ointment on it with no good results. Here, the patient has no complaints of chest pain or shortness of breath and the only issue that he has is skin pruritus. Both the patient, who is slightly confused, and the patient's , who is his healthcare proxy and primary roving court reporter, agree that the patient should be placed on comfort care and most likely a senior living placement will be needed. The patient is going to be admitted with a diagnosis of comfort care orders as well as deconditioning and skin lesions. PAST MEDICAL HISTORY: 1. History of chronic atrial fibrillation, on Xarelto. 2. Diabetes type 2. 3. COPD, on oxygen at 2 L. 4. Obstructive sleep apnea, on BiPAP at night. 5. BPH. 6. History of DVT. 7. History of CHF with good EF in the past. 8. History of bilateral leg edema with leg wounds in the past. They apparently have healed. 9. History of chronic kidney disease stage 3, most likely due to diabetes. 10. Hypertension. 11. Gout. 12. History of indwelling [place] in place. MEDICATIONS: Include: 1. Oxygen at 2 L. 2. Furosemide 80 mg b.i.d. 3. Fatuma 180 mg daily. 4. Insulin Humulin R sliding scale. 5. Trazodone 50 mg at bedtime p.r.n. 6. Betamethasone ointment 0.05% b.i.d. p.r.n. 7. Senna 34.4 mg at bedtime p.r.n. 8. Vitamin D3 2000 units daily. 9. Albuterol nebulizers 4 times a day p.r.n. 10. Albuterol inhaler on a p.r.n. basis. 11. Protonix 40 mg daily. 12. Pulmicort nebulizer 0.25 mg b.i.d. 13. Prednisone 10 mg daily. 14. Terazosin 5 mg at bedtime. 15. Allopurinol 100 mg daily. 16. Potassium chloride 20 mEq b.i.d. 17. Morphine oral solution 5 mg every 4 hours p.r.n. 18. Colace 200 mg daily. 19. Hydrocodone with acetaminophen 5/325 mg 1 tablet 4 times a day p.r.n. 20. Flonase nasal spray 2 sprays both nostrils daily. 21. MiraLAX 17 g daily. 22. Symbicort 2 puffs inhalation daily. 23. Mag ox 400 mg every other day. 24. Atrovent nebulizer up to 4 times a day p.r.n. 25. Xarelto 15 mg daily. 26. Insulin glargine 35 units daily. 27. Diltiazem CD 240 mg daily. 28. Bumetanide 1 mg daily. 29. Zaroxolyn 5 mg daily. 30. Singulair 10 mg daily p.r.n. FAMILY HISTORY: Positive for father with history of throat cancer. SOCIAL HISTORY: The patient lives with his , who is his surrogate. He is do not resuscitate and his MOLST also indicates comfort care, but also indicates to bring him to the hospital if needed and to use antibiotics if necessary. Currently, he is not smoking. He denies any alcohol or drug use. REVIEW OF SYSTEMS: Please see history of present illness. Please note that the patient is a poor historian and he will not remember how old he is. He defers to his . Apparently, he had been doing reasonably well and his chronic leg wounds have healed. He has a chronic indwelling catheter in place. His appetite had been good. He has had pruritic skin lesions mostly in his trunk and bilateral lower extremities which he had been scratching and the had been applying steroid cream. He had no complaints of chest pain or shortness of breath. There had not been any issues with fevers. had said that it had been increasingly difficult to monitor at home with the patient and the visiting nurses service that cut services recently. All the remaining 14 systems were reviewed with the and they were negative. PHYSICAL EXAMINATION GENERAL: The patient is a very pleasant 80-year-old male who is in no acute distress. The patient is alert and oriented x2. He is unaware of his age. VITAL SIGNS: Blood pressure of 130/74, heart rate of 85 and regular, respiratory rate 19, oxygen saturation 99% on 2 L of oxygen nasal cannula, and temperature of 97.8. HEENT: Head: Atraumatic, normocephalic. Eyes: Pupils equal, reactive to light and accommodation. Oropharynx clear. Mucosa moist. NECK: Supple. No JVD, no bruit bilaterally. RESPIRATORY: Distant breath sounds bilaterally. Otherwise clear. CARDIOVASCULAR: Irregularly irregular rhythm. No murmur. ABDOMEN: Protuberant, soft, nontender. Bowel sounds present in all 4 quadrants. EXTREMITIES: There is +2 pitting pedal edema. Pulses poorly palpable, but present bilaterally. There is no clubbing and no cyanosis. The patient has chronic venostasis discoloration, bilateral lower extremities and dry skin. He has a small unstageable, covered with eschar decubitus on the left heel that is approximately 1 cm in diameter. The patient's bilateral lower extremities all the way to his knees as well as on his trunk, mostly on his back, has annular scaly-looking lesions, most likely due to tinea corporis. NEUROLOGIC EVALUATION: Markedly deconditioned, but no focal deficits. Speech clear. LABORATORY DATA: Showed white blood cell count of 10.3, hemoglobin of 10.3, hematocrit of 34, MCV of 69, and platelets of 213. Sodium was 132, potassium 3.1, chloride of 90, carbon dioxide 34, BUN 59, creatinine 2.29, which is consistent with prior. The patient's troponin was 0.22. In the past, the patient had troponins elevated, but they were low at 0.05. The patient's EKG showed sinus rhythm with multiple PACs. Portable chest x-ray, impression: "No active cardiopulmonary disease present." Brain CT, impression: "No acute intracranial pathology. Diffuse involutional change with chronic small vessel ischemic changes." The patient's urinalysis is pending at the time of dictation. ASSESSMENT AND PLAN: Frank Desai is an 80-year-old male with a history of severe chronic obstructive pulmonary disease and multiple other comorbid conditions who was multiple times evaluated by our palliative care service and deemed to be a good hospice candidate which the family and the patient wishes. Nevertheless, it was difficult to obtain the services at the patient's place of residence. At this point, he was brought in by his who is exhausted from taking care of him and is unable to do so anymore. The patient also complains of pruritic rash that is most likely due to tinea corporis. At this point, both the patient and the patient's request for the patient to be placed on comfort care orders. Palliative care consult is going to be obtained. The also wishes for the patient to be placed in a senior living facility for further management. In regards to the patient's chronic conditions, the patient does not appear to be in acute distress, infected, or in exacerbation of chronic obstructive pulmonary disease. The patient's outpatient medications are going to be continued as previously taken. For the time being, once again, I will continue all of those medications including his anticoagulants for atrial fibrillation and his prednisone. Further down the road, after palliative care consultation, we may be able to review the medications with the hospice service and address them appropriately. In regards to DVT prophylaxis, the patient is comfort care, but he is going to be continued on anticoagulation with Xarelto. In regards to the patient's code status, the patient is a do not resuscitate and comfort care with the exception of sending to the hospital as he needed and use of antibiotics as necessary. In regards to the patient's tinea corporis, at this point, the rash most likely appears to be a fungal rash. I will place the patient on clotrimazole twice a day. TIME SPENT: Approximately 80 minutes were spent on the admission of this patient, more than half that time was spent [id number] with the patient and the patient's in discussion in regards to comfort care and the patient's recent medical conditions. [id number]/CPS #: [id number]
[2016-11-09] MEDS: Clotrimazole 1% CREAM* 30 GM TOPICAL SCH (22:00)
[2016-11-09] MEDS: Insulin GLARGINE(*) 1 UNITS UNIT SUBCUT SCH (22:01)
[2016-11-09] MEDS: Terazosin CAP* 5 MG PO SCH (22:02)
[2016-11-10] MEDS: Albuterol 2.5 MG/3 ML NEB.SOL* (0.083%) INH PRN ×2 (04:02→14:47)
[2016-11-10] MEDS: Budesonide NEB* 0.25 MG/2 ML NEB.SOLN INH SCH ×2 (08:32→21:58)
[2016-11-10] MEDS: Potassium Chlor TAB* 20 MEQ TAB.ER PO SCH ×2 (09:01→17:15)
[2016-11-10] MEDS: predniSONE TAB* 10 MG PO SCH (09:01)
[2016-11-10] MEDS: Metolazone TAB* 5 MG PO SCH (09:01)
[2016-11-10] MEDS: Diltiazem CD CAP* 240 MG PO SCH (09:02)
[2016-11-10] MEDS: Furosemide TAB* 40 MG PO SCH ×2 (09:02→22:17)
[2016-11-10] MEDS: Bumetanide TAB* 1 MG PO SCH (09:02)
[2016-11-10] MEDS: Polyethylene Glycol 3350* 17 GM PACKET PO SCH (09:02)
[2016-11-10] MEDS: Allopurinol TAB* 100 MG PO SCH (09:02)
[2016-11-10] MEDS: Docusate CAP* 100 MG PO SCH (09:02)
[2016-11-10] MEDS: Clotrimazole 1% CREAM* 30 GM TOPICAL SCH (09:13)
[2016-11-10] MEDS: Fluticasone NASAL SPRAY 50MCG* 16 gm SPRAY BTL BOTH NARES SCH (09:13)
--- NOTE | 2016-11-10 12:51 | PN ---
Subjective Date of Service: 11/10/16 Interval History: Pt stated that rash "feels batter". No other complaints. Objective Active Medications: Hydrocodone Bitart/Acetaminophen ([place] 5-325 Tab*) 1 tab PO QID PRN PRN Reason: PAIN Albuterol (Ventolin 2.5 Mg/3 Ml Neb.Soco*) 2.5 mg INH QID PRN PRN Reason: SHORTNESS OF BREATH Last Admin: 11/10/16 04:02 Dose: 2.5 mg Albuterol (Ventolin Hfa Inhaler*) 2 puff INH Q4H PRN PRN Reason: SOB/WHEEZING Allopurinol (Zyloprim Tab*) 100 mg PO DAILY ON LICENSE OF [facility] Last Admin: 11/10/16 09:02 Dose: 100 mg Budesonide (Pulmicort Neb*) 0.25 mg INH BID ON LICENSE OF [facility] Last Admin: 11/10/16 08:32 Dose: 0.25 mg Bumetanide (Bumex Tab*) 1 mg PO QAM ON LICENSE OF [facility] Last Admin: 11/10/16 09:02 Dose: 1 mg Clotrimazole (Clotrimazole 1%*) 1 applic TOPICAL BID ON LICENSE OF [facility] Last Admin: 11/10/16 09:13 Dose: 1 applic Diltiazem HCl (Cardizem Cd Cap*) 240 mg PO QAM ON LICENSE OF [facility] Last Admin: 11/10/16 09:02 Dose: 240 mg Docusate Sodium (Colace Cap*) 200 mg PO DAILY ON LICENSE OF [facility] Last Admin: 11/10/16 09:02 Dose: 200 mg Fluticasone Propionate (Flonase Nasal [place] 50mcg*) 2 spray BOTH NARES DAILY ON LICENSE OF [facility] Last Admin: 11/10/16 09:13 Dose: 2 spray Furosemide (Lasix Tab*) 80 mg PO BID ON LICENSE OF [facility] Last Admin: 11/10/16 09:02 Dose: 80 mg Insulin Glargine (Lantus(*)) 35 units SUBCUT QPM ON LICENSE OF [facility] Last Admin: 11/09/16 22:01 Dose: 35 units Ipratropium [place] (Atrovent 0.5 Mg Neb.Soco*) 0.5 mg INH QID PRN PRN Reason: SHORTNESS OF BREATH Magnesium Oxide (Magox 400 Tab*) 400 mg PO EVERY OTHER DAY ON LICENSE OF [facility] Metolazone (Zaroxolyn Tab*) 5 mg PO QAM ON LICENSE OF [facility] Last Admin: 11/10/16 09:01 Dose: 5 mg Montelukast Sodium (Singulair Tab*) 10 mg PO DAILY PRN PRN Reason: Allergy Symptoms Morphine Sulfate (Morphine Oral.Soln 10 Mg*) 5 mg PO Q4H PRN PRN Reason: PAIN Polyethylene Glycol/Electrolytes (Miralax*) 17 gm PO DAILY ON LICENSE OF [facility] Last Admin: 11/10/16 09:02 Dose: 17 gm Potassium Chloride (Klor Con Er Tab*) 20 meq PO BID WITH MEALS ON LICENSE OF [facility] Last Admin: 11/10/16 09:01 Dose: 20 meq Prednisone (Deltasone Tab*) 10 mg PO DAILY WITH MEAL ON LICENSE OF [facility] Last Admin: 11/10/16 09:01 Dose: 10 mg Rivaroxaban (Xarelto(*)) 15 mg PO DAILY@1700 ON LICENSE OF [facility] Senna (Senokot Tab*) 4 tab PO BEDTIME PRN PRN Reason: CONSTIPATION Terazosin HCl (Hytrin Cap*) 10 mg PO BEDTIME ON LICENSE OF [facility] Last Admin: 11/09/16 22:02 Dose: 10 mg Trazodone HCl (Desyrel Tab*) 50 mg PO BEDTIME PRN PRN Reason: SLEEP Vital Signs 11/09/16 11/09/16 11/09/16 16:30 16:57 17:46 Temperature 98.4 F 97.7 F Pulse Rate 49 85 64 Respiratory 19 18 22 Rate Blood Pressure 130/74 130/74 144/73 (mmHg) O2 Sat by Pulse 99 100 Oximetry 11/09/16 11/09/16 11/09/16 18:50 19:20 19:44 Temperature 97.3 F Pulse Rate 91 81 Respiratory 22 24 22 Rate Blood Pressure 136/65 (mmHg) O2 Sat by Pulse 100 99 Oximetry 11/09/16 11/10/16 11/10/16 20:00 04:03 07:39 Temperature 97.4 F Pulse Rate 90 75 Respiratory 22 24 17 Rate Blood Pressure 114/56 (mmHg) O2 Sat by Pulse 98 99 Oximetry 11/10/16 11/10/16 07:54 08:35 Temperature Pulse Rate 77 Respiratory 18 18 Rate Blood Pressure (mmHg) O2 Sat by Pulse 98 Oximetry Oxygen Devices in Use Now: Nasal Cannula - at 2 l Appearance: 80 yo M in NAD, sittingg on edge of bed, AAOx2, forgetful Eyes: No Scleral Icterus, PERRLA Ears/Nose/Mouth/Throat: NL Teeth, Lips, Gums, Mucous Membranes Moist Neck: NL Appearance and Movements; NL JVP, Trachea Midline Respiratory: Symmetrical Chest Expansion and Respiratory Effort, Clear to Auscultation Cardiovascular: - - irregular Abdominal: NL Sounds; No Tenderness; No Distention, No Hepatosplenomegaly Extremities: No Clubbing, Cyanosis, - - +2 pitting pedal edema Skin: - - annular, scaly rash on back and upper thighs. R heel 1 cm decub- covered with eschar , unsteagable Neurological: - - generalized weakness, no focal deficit Result Diagrams: 11/09/16 14:05 11/09/16 14:05 Additional Lab and Data: Lab Results 11/09/16 11/09/16 11/09/16 Range/Units 14:05 14:05 14:05 WBC 10.3 (3.5-10.8) 10^3/ul RBC 4.84 (4.0-5.4) 10^6/ul Hgb 10.3 L (14.0-18.0) g/dl Hct 34 L (42-52) % MCV 69 L (80-94) fL MCH 21 L (27-31) pg MCHC 31 (31-36) g/dl RDW 19 H (10.5-15) % Plt Count 213 (150-450) 10^3/ul MPV 8 (7.4-10.4) um3 Neut % (Auto) 85.8 H (38-83) % Lymph % (Auto) 5.2 L (25-47) % [place] % (Auto) 5.8 (1-9) % Eos % (Auto) 2.7 (0-6) % Baso % (Auto) 0.5 (0-2) % Absolute Neuts (auto) 8.8 H (1.5-7.7) 10^3/ul Absolute Lymphs (auto) 0.5 L (1.0-4.8) 10^3/ul Absolute Monos (auto) 0.6 (0-0.8) 10^3/ul Absolute Eos (auto) 0.3 (0-0.6) 10^3/ul Absolute Basos (auto) 0 (0-0.2) 10^3/ul Absolute Nucleated RBC 0.01 10^3/ul Nucleated RBC % 0.1 INR (Anticoag Therapy) 1.49 H (0.89-1.11) APTT 35.8 (26.0-36.3) seconds Sodium 133 (133-145) mmol/L Potassium 3.1 L (3.5-5.0) mmol/L Chloride 90 L (101-111) mmol/L Carbon Dioxide 34 H (22-32) mmol/L Anion Gap 9 (2-11) mmol/L BUN 59 H (6-24) mg/dL Creatinine 2.29 H (0.67-1.17) mg/dL Est GFR ( Amer) 35.4 (>60) Est GFR (Non-Af Amer) 27.5 (>60) BUN/Creatinine Ratio 25.8 H (8-20) Glucose 140 H (70-100) mg/dL Lactic Acid (0.5-2.0) mmol/L Calcium 9.2 (8.6-10.3) mg/dL Magnesium 1.8 L (1.9-2.7) mg/dL Total Bilirubin 0.60 (0.2-1.0) mg/dL AST 21 (13-39) U/L ALT 19 (7-52) U/L Alkaline Phosphatase 86 (34-104) U/L Ammonia (16-53) mol/L Total Creatine Kinase 62 (10-223) U/L CK-MB (CK-2) 2.3 (0.6-6.3) ng/mL Troponin I 0.22 H* (<0.04) ng/mL C-Reactive Protein 127.80 H (< 5.00) mg/L B-Natriuretic Peptide ( - 100) pg/mL Total Protein 7.6 (6.4-8.9) g/dL Albumin 3.8 (3.2-5.2) g/dL Globulin 3.8 (2-4) g/dL Albumin/Globulin Ratio 1.0 (1-3) Lipase 41 (11.0-82.0) U/L TSH 2.05 (0.34-5.60) mcIU/mL Acetaminophen < 15 mcg/mL Serum Alcohol < 10 (<10) mg/dL 11/09/16 11/09/16 Range/Units 14:05 14:05 WBC (3.5-10.8) 10^3/ul RBC (4.0-5.4) 10^6/ul Hgb (14.0-18.0) g/dl Hct (42-52) % MCV (80-94) fL MCH (27-31) pg MCHC (31-36) g/dl RDW (10.5-15) % Plt Count (150-450) 10^3/ul MPV (7.4-10.4) um3 Neut % (Auto) (38-83) % Lymph % (Auto) (25-47) % [place] % (Auto) (1-9) % Eos % (Auto) (0-6) % Baso % (Auto) (0-2) % Absolute Neuts (auto) (1.5-7.7) 10^3/ul Absolute Lymphs (auto) (1.0-4.8) 10^3/ul Absolute Monos (auto) (0-0.8) 10^3/ul Absolute Eos (auto) (0-0.6) 10^3/ul Absolute Basos (auto) (0-0.2) 10^3/ul Absolute Nucleated RBC 10^3/ul Nucleated RBC % INR (Anticoag Therapy) (0.89-1.11) APTT (26.0-36.3) seconds Sodium (133-145) mmol/L Potassium (3.5-5.0) mmol/L Chloride (101-111) mmol/L Carbon Dioxide (22-32) mmol/L Anion Gap (2-11) mmol/L BUN (6-24) mg/dL Creatinine (0.67-1.17) mg/dL Est GFR ( Amer) (>60) Est GFR (Non-Af Amer) (>60) BUN/Creatinine Ratio (8-20) Glucose (70-100) mg/dL Lactic Acid 1.1 (0.5-2.0) mmol/L Calcium (8.6-10.3) mg/dL Magnesium (1.9-2.7) mg/dL Total Bilirubin (0.2-1.0) mg/dL AST (13-39) U/L ALT (7-52) U/L Alkaline Phosphatase (34-104) U/L Ammonia 23 (16-53) mol/L Total Creatine Kinase (10-223) U/L CK-MB (CK-2) (0.6-6.3) ng/mL Troponin I (<0.04) ng/mL C-Reactive Protein (< 5.00) mg/L B-Natriuretic Peptide 76 ( - 100) pg/mL Total Protein (6.4-8.9) g/dL Albumin (3.2-5.2) g/dL Globulin (2-4) g/dL Albumin/Globulin Ratio (1-3) Lipase (11.0-82.0) U/L TSH (0.34-5.60) mcIU/mL Acetaminophen mcg/mL Serum Alcohol (<10) mg/dL Assess/Plan/Problems-Billing Assessment: 80 yo M with h/o severe COPD, leg edema and priror leg wounds, A. 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 wishes for pt to be comfort care. - Patient Problems (1) Chronic respiratory failure Comment: Secondary to COPD Requires chronic supp O2 at 2 L and steroid therapy (2) Rash Comment: dry, scaly rash on trunk and LE's - suspect tinea corporis. cont clotrimazole cream (3) CKD (chronic kidney disease) Comment: at baseline, due to DM (4) Diabetes Comment: Will continue usual home dose of Lantus and will cover hyperglycemia with SS Humalog (5) Afib Comment: Rate controlled Continue Cardizem cont home Xarelto (6) Leg edema Comment: b/l chronic, cont Lasix and zaroxolyn at home doses (7) Comfort measures only status Comment: Pt and agreed to comfort care. Palliative care consult pending. cont DNR Status and Disposition: Inpatient. Pt will need NH placement
[2016-11-10] MEDS: Rivaroxaban TAB(*) 15 MG PO SCH (17:15)
[2016-11-10] MEDS: Terazosin CAP* 5 MG PO SCH (22:16)
[2016-11-10] MEDS: Clotrimazole 1% CREAM* 45 GM TOPICAL SCH (22:17)
[2016-11-10] MEDS: Insulin GLARGINE(*) 1 UNITS UNIT SUBCUT SCH (22:17)
[2016-11-11] MEDS: Morphine ORAL.SOLN 10 mg* 2 MG/ML UDC 5 ml PO PRN (04:24)
[2016-11-11] MEDS: Furosemide TAB* 40 MG PO SCH ×2 (08:07→22:14)
[2016-11-11] MEDS: Fluticasone NASAL SPRAY 50MCG* 16 gm SPRAY BTL BOTH NARES SCH (08:07)
[2016-11-11] MEDS: Bumetanide TAB* 1 MG PO SCH (08:07)
[2016-11-11] MEDS: predniSONE TAB* 10 MG PO SCH (08:07)
[2016-11-11] MEDS: Docusate CAP* 100 MG PO SCH (08:07)
[2016-11-11] MEDS: Metolazone TAB* 5 MG PO SCH (08:08)
[2016-11-11] MEDS: Diltiazem CD CAP* 240 MG PO SCH (08:08)
[2016-11-11] MEDS: Polyethylene Glycol 3350* 17 GM PACKET PO SCH (08:08)
[2016-11-11] MEDS: Allopurinol TAB* 100 MG PO SCH (08:08)
[2016-11-11] MEDS: Potassium Chlor TAB* 20 MEQ TAB.ER PO SCH ×2 (08:08→17:24)
[2016-11-11] MEDS: Magnesium Oxide TAB* 400 MG PO SCH (08:08)
[2016-11-11] MEDS: Clotrimazole 1% CREAM* 45 GM TOPICAL SCH ×2 (08:09→22:14)
[2016-11-11] MEDS: Budesonide NEB* 0.25 MG/2 ML NEB.SOLN INH SCH ×3 (08:44→19:27)
[2016-11-11] MEDS: Albuterol 2.5 MG/3 ML NEB.SOL* (0.083%) INH PRN (11:52)
[2016-11-11] MEDS: Albuterol/Ipratropium NEB.SOL* Albuterol 2.5 MG/Ipratropium 0.5 MG 3 ML INH SCH ×2 (12:53→18:20)
--- NOTE | 2016-11-11 13:17 | PN ---
Subjective Date of Service: 11/11/16 Interval History: Although pt is a very poor historian and with dementia, he told family today that he wants to go home. met with pt's and oldest daughter who stated that pt is "impossible at home ". He tells his who ambulates poorly with a cane to go outside an shovel snow during the snow storm. I t appears that his usually tries to fulfil his requests which worries their children, that it gets unsafe for pt's . Also apparently pt voiced multiple time in the past that he just wants to . That made the family think that maybe he is depressed. Objective Active Medications: Hydrocodone Bitart/Acetaminophen ([place] 5-325 Tab*) 1 tab PO QID PRN PRN Reason: PAIN Last Admin: 11/11/16 11:52 Dose: 1 tab Albuterol (Ventolin Hfa Inhaler*) 2 puff INH Q4H PRN PRN Reason: SOB/WHEEZING Albuterol/Ipratropium (Duoneb (Albuterol 2.5 Mg/Ipratropium 0.5 Mg)) 1 neb INH Q6H [facility] Last Admin: 11/11/16 12:53 Dose: Not Given Allopurinol (Zyloprim Tab*) 100 mg PO DAILY [facility] Last Admin: 11/11/16 08:08 Dose: 100 mg Budesonide (Pulmicort Neb*) 0.25 mg INH BID [facility] Last Admin: 11/11/16 08:44 Dose: 0.25 mg Bumetanide (Bumex Tab*) 1 mg PO QAM [facility] Last Admin: 11/11/16 08:07 Dose: 1 mg Clotrimazole (Clotrimazole 1%*) 1 applic TOPICAL BID [facility] Last Admin: 11/11/16 08:09 Dose: 1 applic Diltiazem HCl (Cardizem Cd Cap*) 240 mg PO QAM [facility] Last Admin: 11/11/16 08:08 Dose: 240 mg Docusate Sodium (Colace Cap*) 200 mg PO DAILY [facility] Last Admin: 11/11/16 08:07 Dose: 200 mg Fluticasone Propionate (Flonase Nasal [place] 50mcg*) 2 spray BOTH NARES DAILY [facility] Last Admin: 11/11/16 08:07 Dose: 2 spray Furosemide (Lasix Tab*) 80 mg PO BID [facility] Last Admin: 11/11/16 08:07 Dose: 80 mg Insulin Glargine (Lantus(*)) 40 units SUBCUT QPM [facility] Magnesium Oxide (Magox 400 Tab*) 400 mg PO EVERY OTHER DAY [facility] Last Admin: 11/11/16 08:08 Dose: 400 mg Metolazone (Zaroxolyn Tab*) 5 mg PO QAM [facility] Last Admin: 11/11/16 08:08 Dose: 5 mg Montelukast Sodium (Singulair Tab*) 10 mg PO DAILY PRN PRN Reason: Allergy Symptoms Morphine Sulfate (Morphine Oral.Soln 10 Mg*) 5 mg PO Q4H PRN PRN Reason: PAIN Last Admin: 11/11/16 04:24 Dose: 5 mg Polyethylene Glycol/Electrolytes (Miralax*) 17 gm PO DAILY [facility] Last Admin: 11/11/16 08:08 Dose: 17 gm Potassium Chloride (Klor Con Er Tab*) 20 meq PO BID WITH MEALS [facility] Last Admin: 11/11/16 08:08 Dose: 20 meq Prednisone (Deltasone Tab*) 10 mg PO DAILY WITH MEAL [facility] Last Admin: 11/11/16 08:07 Dose: 10 mg Rivaroxaban (Xarelto(*)) 15 mg PO DAILY@1700 [facility] Last Admin: 11/10/16 17:15 Dose: 15 mg Senna (Senokot Tab*) 4 tab PO BEDTIME PRN PRN Reason: CONSTIPATION Terazosin HCl (Hytrin Cap*) 10 mg PO BEDTIME [facility] Last Admin: 11/10/16 22:16 Dose: 10 mg Trazodone HCl (Desyrel Tab*) 50 mg PO BEDTIME PRN PRN Reason: SLEEP Vital Signs 11/10/16 11/10/16 11/10/16 14:49 20:00 21:59 Temperature Pulse Rate 85 83 Respiratory 18 18 20 Rate Blood Pressure (mmHg) O2 Sat by Pulse 99 99 Oximetry 11/11/16 11/11/16 11/11/16 04:24 06:24 07:51 Temperature 98.0 F Pulse Rate 79 Respiratory 18 16 14 Rate Blood Pressure 136/62 (mmHg) O2 Sat by Pulse 95 Oximetry 11/11/16 11/11/16 11/11/16 08:00 08:51 11:52 Temperature Pulse Rate 89 Respiratory 18 18 Rate Blood Pressure (mmHg) O2 Sat by Pulse 95 95 Oximetry 11/11/16 11:55 Temperature Pulse Rate 62 Respiratory 17 Rate Blood Pressure (mmHg) O2 Sat by Pulse 92 Oximetry Oxygen Devices in Use Now: Nasal Cannula - at 2 l Appearance: 80 yo M in nAD, AAOx2, poor hisotrian, forgetful Eyes: No Scleral Icterus, PERRLA Ears/Nose/Mouth/Throat: NL Teeth, Lips, Gums, Mucous Membranes Moist Neck: NL Appearance and Movements; NL JVP, Trachea Midline Respiratory: Symmetrical Chest Expansion and Respiratory Effort, - - mild, scattered b/l wheezes Cardiovascular: RRR Abdominal: NL Sounds; No Tenderness; No Distention Lymphatic: No Cervical Adenopathy Extremities: No Clubbing, Cyanosis, - - +1 pitting pedal edema b/l Skin: No Nodules or Sclerosis, - - R heel decubitus at 1 cm covered with eschar Neurological: - - generalized weakness, no focal deficit Result Diagrams: 11/09/16 14:05 11/09/16 14:05 Additional Lab and Data: Lab Results 11/09/16 11/09/16 11/09/16 Range/Units 14:05 14:05 14:05 WBC 10.3 (3.5-10.8) 10^3/ul RBC 4.84 (4.0-5.4) 10^6/ul Hgb 10.3 L (14.0-18.0) g/dl Hct 34 L (42-52) % MCV 69 L (80-94) fL MCH 21 L (27-31) pg MCHC 31 (31-36) g/dl RDW 19 H (10.5-15) % Plt Count 213 (150-450) 10^3/ul MPV 8 (7.4-10.4) um3 Neut % (Auto) 85.8 H (38-83) % Lymph % (Auto) 5.2 L (25-47) % [place] % (Auto) 5.8 (1-9) % Eos % (Auto) 2.7 (0-6) % Baso % (Auto) 0.5 (0-2) % Absolute Neuts (auto) 8.8 H (1.5-7.7) 10^3/ul Absolute Lymphs (auto) 0.5 L (1.0-4.8) 10^3/ul Absolute Monos (auto) 0.6 (0-0.8) 10^3/ul Absolute Eos (auto) 0.3 (0-0.6) 10^3/ul Absolute Basos (auto) 0 (0-0.2) 10^3/ul Absolute Nucleated RBC 0.01 10^3/ul Nucleated RBC % 0.1 INR (Anticoag Therapy) 1.49 H (0.89-1.11) APTT 35.8 (26.0-36.3) seconds Sodium 133 (133-145) mmol/L Potassium 3.1 L (3.5-5.0) mmol/L Chloride 90 L (101-111) mmol/L Carbon Dioxide 34 H (22-32) mmol/L Anion Gap 9 (2-11) mmol/L BUN 59 H (6-24) mg/dL Creatinine 2.29 H (0.67-1.17) mg/dL Est GFR ( Amer) 35.4 (>60) Est GFR (Non-Af Amer) 27.5 (>60) BUN/Creatinine Ratio 25.8 H (8-20) Glucose 140 H (70-100) mg/dL Lactic Acid (0.5-2.0) mmol/L Calcium 9.2 (8.6-10.3) mg/dL Magnesium 1.8 L (1.9-2.7) mg/dL Total Bilirubin 0.60 (0.2-1.0) mg/dL AST 21 (13-39) U/L ALT 19 (7-52) U/L Alkaline Phosphatase 86 (34-104) U/L Ammonia (16-53) mol/L Total Creatine Kinase 62 (10-223) U/L CK-MB (CK-2) 2.3 (0.6-6.3) ng/mL Troponin I 0.22 H* (<0.04) ng/mL C-Reactive Protein 127.80 H (< 5.00) mg/L B-Natriuretic Peptide ( - 100) pg/mL Total Protein 7.6 (6.4-8.9) g/dL Albumin 3.8 (3.2-5.2) g/dL Globulin 3.8 (2-4) g/dL Albumin/Globulin Ratio 1.0 (1-3) Lipase 41 (11.0-82.0) U/L TSH 2.05 (0.34-5.60) mcIU/mL Acetaminophen < 15 mcg/mL Serum Alcohol < 10 (<10) mg/dL 11/09/16 11/09/16 Range/Units 14:05 14:05 WBC (3.5-10.8) 10^3/ul RBC (4.0-5.4) 10^6/ul Hgb (14.0-18.0) g/dl Hct (42-52) % MCV (80-94) fL MCH (27-31) pg MCHC (31-36) g/dl RDW (10.5-15) % Plt Count (150-450) 10^3/ul MPV (7.4-10.4) um3 Neut % (Auto) (38-83) % Lymph % (Auto) (25-47) % [place] % (Auto) (1-9) % Eos % (Auto) (0-6) % Baso % (Auto) (0-2) % Absolute Neuts (auto) (1.5-7.7) 10^3/ul Absolute Lymphs (auto) (1.0-4.8) 10^3/ul Absolute Monos (auto) (0-0.8) 10^3/ul Absolute Eos (auto) (0-0.6) 10^3/ul Absolute Basos (auto) (0-0.2) 10^3/ul Absolute Nucleated RBC 10^3/ul Nucleated RBC % INR (Anticoag Therapy) (0.89-1.11) APTT (26.0-36.3) seconds Sodium (133-145) mmol/L Potassium (3.5-5.0) mmol/L Chloride (101-111) mmol/L Carbon Dioxide (22-32) mmol/L Anion Gap (2-11) mmol/L BUN (6-24) mg/dL Creatinine (0.67-1.17) mg/dL Est GFR ( Amer) (>60) Est GFR (Non-Af Amer) (>60) BUN/Creatinine Ratio (8-20) Glucose (70-100) mg/dL Lactic Acid 1.1 (0.5-2.0) mmol/L Calcium (8.6-10.3) mg/dL Magnesium (1.9-2.7) mg/dL Total Bilirubin (0.2-1.0) mg/dL AST (13-39) U/L ALT (7-52) U/L Alkaline Phosphatase (34-104) U/L Ammonia 23 (16-53) mol/L Total Creatine Kinase (10-223) U/L CK-MB (CK-2) (0.6-6.3) ng/mL Troponin I (<0.04) ng/mL C-Reactive Protein (< 5.00) mg/L B-Natriuretic Peptide 76 ( - 100) pg/mL Total Protein (6.4-8.9) g/dL Albumin (3.2-5.2) g/dL Globulin (2-4) g/dL Albumin/Globulin Ratio (1-3) Lipase (11.0-82.0) U/L TSH (0.34-5.60) mcIU/mL Acetaminophen mcg/mL Serum Alcohol (<10) mg/dL Assess/Plan/Problems-Billing Assessment: 80 yo M with h/o severe COPD, leg edema and priror leg wounds, A. 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 wishes for pt to be comfort care. - Patient Problems (1) Chronic respiratory failure Comment: Secondary to COPD Requires chronic supp O2 at 2 L and chronic prednisone therapy (2) Rash Comment: dry, scaly rash on trunk and LE's - suspect tinea corporis. cont clotrimazole cream (3) CKD (chronic kidney disease) Comment: at baseline, due to DM (4) Diabetes Comment: Will continue usual home dose of Lantus (5) Afib Comment: Rate controlled Continue Cardizem cont home Xarelto (6) Leg edema Comment: b/l chronic, cont Lasix and zaroxolyn at home doses (7) Comfort measures only status Comment: Pt and reguests comfort care. Palliative care consult pending. cont DNR (8) Suicidal thoughts Comment: As per pt's family. will ask psychiatry to see pt in consult Status and Disposition: Inpatient. Pt will need NH placement
[2016-11-11] MEDS: Rivaroxaban TAB(*) 15 MG PO SCH (17:24)
[2016-11-11] MEDS: Insulin GLARGINE(*) 1 UNITS UNIT SUBCUT SCH (22:14)
[2016-11-11] MEDS: Terazosin CAP* 5 MG PO SCH (22:14)
[2016-11-11] MEDS: traZODone TAB* 50 MG TAB PO PRN (23:25)
[2016-11-12] MEDS: Albuterol/Ipratropium NEB.SOL* Albuterol 2.5 MG/Ipratropium 0.5 MG 3 ML INH SCH ×4 (01:30→19:36)
[2016-11-12] MEDS: Morphine ORAL.SOLN 10 mg* 2 MG/ML UDC 5 ml PO PRN (03:26)
[2016-11-12] MEDS: Bumetanide TAB* 1 MG PO SCH (07:57)
[2016-11-12] MEDS: Potassium Chlor TAB* 20 MEQ TAB.ER PO SCH ×2 (08:00→17:59)
[2016-11-12] MEDS: Allopurinol TAB* 100 MG PO SCH (08:00)
[2016-11-12] MEDS: predniSONE TAB* 10 MG PO SCH (08:00)
[2016-11-12] MEDS: Furosemide TAB* 40 MG PO SCH ×2 (08:01→22:05)
[2016-11-12] MEDS: Polyethylene Glycol 3350* 17 GM PACKET PO SCH (08:01)
[2016-11-12] MEDS: Fluticasone NASAL SPRAY 50MCG* 16 gm SPRAY BTL BOTH NARES SCH (08:01)
[2016-11-12] MEDS: Diltiazem CD CAP* 240 MG PO SCH (08:01)
[2016-11-12] MEDS: Docusate CAP* 100 MG PO SCH (08:01)
[2016-11-12] MEDS: Metolazone TAB* 5 MG PO SCH (08:01)
[2016-11-12] MEDS: Budesonide NEB* 0.25 MG/2 ML NEB.SOLN INH SCH ×2 (08:01→19:36)
[2016-11-12] MEDS: Clotrimazole 1% CREAM* 45 GM TOPICAL SCH ×2 (11:58→22:05)
--- NOTE | 2016-11-12 13:20 | CONS ---
CONSULTATION REPORT: DATE OF CONSULT: 11/12/16 REQUESTING PHYSICIAN: Dr. Myranda Yi. CONSULTATION QUESTION: Family is concerned that he may be suffering from depression. HISTORY OF PRESENT ILLNESS: Mr. Desai had been admitted for concerns raised by his about increased irritability in the home. He has multiple ongoing medical issues that are taxing both him and his . He reports to me that he does not feel that he is depressed. On review of depressive symptoms, he does endorse difficulty falling asleep and early education teacher awakenings. He reports he will sometimes feel worthless because his COPD makes it difficult for him to walk so that he has to use a walker and sometimes a power wheelchair. He reports that his mood is "poor" and that he is "awful upset" because his brought him in here; he says that she is "being a bitch". He denies having any experience of anhedonia and states that he still enjoys playing with his toy trains. He denies any difficulties with energy level. He denies any passive suicidal ideation or any plans to do harm to himself or to others. On review of other psychiatric symptoms, he denies any history of jeff or psychosis, any history of trauma or PTSD symptoms. He denies any particular difficulties with anxiety. He also denies any substance abuse issues. MENTAL STATUS EXAMINATION: This is a hard of hearing man so that I have to raise my voice considerably to be understood by him, but he does understand me with a loud voice. He is a charming fellow and well engaged in the interview. He is alert and oriented to person, place, time, and situation, has good recall of three objects at 3 minutes, does serial sevens back to 65 successfully. He is fully oriented to person, place, time, and situation, in fact good across all orientation items of the MMSE. He shows no signs of onset of dementia in my abbreviated MMSE survey. He reports his mood as "poor," relating this to the current circumstance of being brought into the hospital by his . He comes around to a ready smile and good affect during the course of our conversation. He demonstrates fair insight and judgment and recognizing the difficulties of his medical problems, although he may not be fully reckoning with their impact upon his mood currently. He has intact impulse control with me. He has grooming and hygiene adequate to the setting. He makes good eye contact. His speech has regular rate, rhythm, and volume. His thought process is linear and goal directed. Medical history, physical exam, vitals, laboratory values, for all of these please refer to the documentation from the medical floor admission, which I have reviewed. I understand that he has been having problems lately with recurrent itchy rash, also has chronic respiratory failure from COPD, chronic kidney disease, AFib, lower extremity edema, and is on comfort measures only status. RECOMMENDATIONS AND ASSESSMENT: Mr. Desai is a very pleasant gentleman who has his wits about him. He has become irritable with his in the home prompting this admission, one of many for multiple medical problems. He has been assessed as suitable for placement into hospice care on multiple occasions in his admissions at this hospital, I am told, by both his medical provider, Dr. Yi, and by a reverend connected with hospice care, who came to visit him during the course of my interview with the patient. It was the reverend's assessment from what he has seen of him in working with him over some time now, that Mr. Desai is not depressed. From my examination of Mr. Desai, I would agree with that assessment. I also agree that for any patient who is considering placement into hospice care, naturally the end of their life would be on their mind quite apart from any suicidality, which he adamantly denies. He has been quite clear with me that he is not wanting to be nor is he having any thoughts about harming himself to make that happen. I do not recommend an antidepressant, as he does not report sufficient symptoms of a depressive disorder to be likely to benefit sufficiently to offset potential side effects and interactions with his current extensive medication regimen. It would seem that what might be most helpful for him would be increased level of services for his medical issues, which could come through placement into hospice care. I recommend further supportive measures be explored. Thank you for this consultation on this very pleasant gentleman. DIAGNOSIS: Adjustment disorder with disturbance of mood. [id number] #: [id number]
--- NOTE | 2016-11-12 15:25 | PN ---
Subjective Date of Service: 11/12/16 Interval History: Pt has no new complaints. Asked questions about rehab/NH, concerned about "who is going to pay for it". Objective Active Medications: Hydrocodone Bitart/Acetaminophen ([place] 5-325 Tab*) 1 tab PO QID PRN PRN Reason: PAIN Last Admin: 11/11/16 11:52 Dose: 1 tab Albuterol (Ventolin Hfa Inhaler*) 2 puff INH Q4H PRN PRN Reason: SOB/WHEEZING Albuterol/Ipratropium (Duoneb (Albuterol 2.5 Mg/Ipratropium 0.5 Mg)) 1 neb INH Q6H [facility] Last Admin: 11/12/16 14:01 Dose: 1 neb Allopurinol (Zyloprim Tab*) 100 mg PO DAILY [facility] Last Admin: 11/12/16 08:00 Dose: 100 mg Budesonide (Pulmicort Neb*) 0.25 mg INH BID [facility] Last Admin: 11/12/16 08:01 Dose: 0.25 mg Bumetanide (Bumex Tab*) 1 mg PO QAM [facility] Last Admin: 11/12/16 07:57 Dose: 1 mg Clotrimazole (Clotrimazole 1%*) 1 applic TOPICAL BID [facility] Last Admin: 11/12/16 11:58 Dose: 1 applic Diltiazem HCl (Cardizem Cd Cap*) 240 mg PO QAM [facility] Last Admin: 11/12/16 08:01 Dose: 240 mg Docusate Sodium (Colace Cap*) 200 mg PO DAILY [facility] Last Admin: 11/12/16 08:01 Dose: 200 mg Fluticasone Propionate (Flonase Nasal [place] 50mcg*) 2 spray BOTH NARES DAILY [facility] Last Admin: 11/12/16 08:01 Dose: 2 spray Furosemide (Lasix Tab*) 80 mg PO BID [facility] Last Admin: 11/12/16 08:01 Dose: 80 mg Insulin Glargine (Lantus(*)) 40 units SUBCUT QPM [facility] Last Admin: 11/11/16 22:14 Dose: 40 unit Magnesium Oxide (Magox 400 Tab*) 400 mg PO EVERY OTHER DAY [facility] Last Admin: 11/11/16 08:08 Dose: 400 mg Metolazone (Zaroxolyn Tab*) 5 mg PO QAM [facility] Last Admin: 11/12/16 08:01 Dose: 5 mg Montelukast Sodium (Singulair Tab*) 10 mg PO DAILY PRN PRN Reason: Allergy Symptoms Morphine Sulfate (Morphine Oral.Soln 10 Mg*) 5 mg PO Q4H PRN PRN Reason: PAIN Last Admin: 11/12/16 03:26 Dose: 5 mg Polyethylene Glycol/Electrolytes (Miralax*) 17 gm PO DAILY [facility] Last Admin: 11/12/16 08:01 Dose: 17 gm Potassium Chloride (Klor Con Er Tab*) 20 meq PO BID WITH MEALS [facility] Last Admin: 11/12/16 08:00 Dose: 20 meq Prednisone (Deltasone Tab*) 10 mg PO DAILY WITH MEAL [facility] Last Admin: 11/12/16 08:00 Dose: 10 mg Rivaroxaban (Xarelto(*)) 15 mg PO DAILY@1700 [facility] Last Admin: 11/11/16 17:24 Dose: 15 mg Senna (Senokot Tab*) 4 tab PO BEDTIME PRN PRN Reason: CONSTIPATION Terazosin HCl (Hytrin Cap*) 10 mg PO BEDTIME [facility] Last Admin: 11/11/16 22:14 Dose: 10 mg Trazodone HCl (Desyrel Tab*) 50 mg PO BEDTIME PRN PRN Reason: SLEEP Last Admin: 11/11/16 23:25 Dose: 50 mg Vital Signs 11/11/16 11/11/16 11/11/16 15:46 16:57 18:26 Temperature 97.4 F Pulse Rate 79 83 93 Respiratory 20 20 22 Rate Blood Pressure 82/68 127/57 (mmHg) O2 Sat by Pulse 100 100 98 Oximetry 11/11/16 11/12/16 11/12/16 20:00 01:36 03:26 Temperature Pulse Rate 20 Respiratory 20 98 20 Rate Blood Pressure (mmHg) O2 Sat by Pulse 93 Oximetry 11/12/16 11/12/16 11/12/16 05:26 07:41 08:00 Temperature 97.8 F Pulse Rate 59 Respiratory 20 14 20 Rate Blood Pressure 130/55 (mmHg) O2 Sat by Pulse 100 Oximetry Oxygen Devices in Use Now: Nasal Cannula - at 2 l Appearance: 80 yo M in nAD, aAOx2, poor historian Eyes: No Scleral Icterus, PERRLA Ears/Nose/Mouth/Throat: NL Teeth, Lips, Gums, Mucous Membranes Moist Neck: NL Appearance and Movements; NL JVP, Trachea Midline Respiratory: Symmetrical Chest Expansion and Respiratory Effort, Clear to Auscultation Cardiovascular: - - irregular Abdominal: NL Sounds; No Tenderness; No Distention, No Hepatosplenomegaly Lymphatic: No Cervical Adenopathy Extremities: No Clubbing, Cyanosis, - - +2 pitting pedal edema Skin: No Nodules or Sclerosis, - - r heel decub ast 1 cm unstageable, covered with eschar. Scaly rash on trunk and legs Neurological: NL Muscle Strength and Tone Result Diagrams: 11/09/16 14:05 11/09/16 14:05 Additional Lab and Data: Lab Results 11/09/16 11/09/16 11/09/16 Range/Units 14:05 14:05 14:05 WBC 10.3 (3.5-10.8) 10^3/ul RBC 4.84 (4.0-5.4) 10^6/ul Hgb 10.3 L (14.0-18.0) g/dl Hct 34 L (42-52) % MCV 69 L (80-94) fL MCH 21 L (27-31) pg MCHC 31 (31-36) g/dl RDW 19 H (10.5-15) % Plt Count 213 (150-450) 10^3/ul MPV 8 (7.4-10.4) um3 Neut % (Auto) 85.8 H (38-83) % Lymph % (Auto) 5.2 L (25-47) % [place] % (Auto) 5.8 (1-9) % Eos % (Auto) 2.7 (0-6) % Baso % (Auto) 0.5 (0-2) % Absolute Neuts (auto) 8.8 H (1.5-7.7) 10^3/ul Absolute Lymphs (auto) 0.5 L (1.0-4.8) 10^3/ul Absolute Monos (auto) 0.6 (0-0.8) 10^3/ul Absolute Eos (auto) 0.3 (0-0.6) 10^3/ul Absolute Basos (auto) 0 (0-0.2) 10^3/ul Absolute Nucleated RBC 0.01 10^3/ul Nucleated RBC % 0.1 INR (Anticoag Therapy) 1.49 H (0.89-1.11) APTT 35.8 (26.0-36.3) seconds Sodium 133 (133-145) mmol/L Potassium 3.1 L (3.5-5.0) mmol/L Chloride 90 L (101-111) mmol/L Carbon Dioxide 34 H (22-32) mmol/L Anion Gap 9 (2-11) mmol/L BUN 59 H (6-24) mg/dL Creatinine 2.29 H (0.67-1.17) mg/dL Est GFR ( Amer) 35.4 (>60) Est GFR (Non-Af Amer) 27.5 (>60) BUN/Creatinine Ratio 25.8 H (8-20) Glucose 140 H (70-100) mg/dL Lactic Acid (0.5-2.0) mmol/L Calcium 9.2 (8.6-10.3) mg/dL Magnesium 1.8 L (1.9-2.7) mg/dL Total Bilirubin 0.60 (0.2-1.0) mg/dL AST 21 (13-39) U/L ALT 19 (7-52) U/L Alkaline Phosphatase 86 (34-104) U/L Ammonia (16-53) mol/L Total Creatine Kinase 62 (10-223) U/L CK-MB (CK-2) 2.3 (0.6-6.3) ng/mL Troponin I 0.22 H* (<0.04) ng/mL C-Reactive Protein 127.80 H (< 5.00) mg/L B-Natriuretic Peptide ( - 100) pg/mL Total Protein 7.6 (6.4-8.9) g/dL Albumin 3.8 (3.2-5.2) g/dL Globulin 3.8 (2-4) g/dL Albumin/Globulin Ratio 1.0 (1-3) Lipase 41 (11.0-82.0) U/L TSH 2.05 (0.34-5.60) mcIU/mL Acetaminophen < 15 mcg/mL Serum Alcohol < 10 (<10) mg/dL 11/09/16 11/09/16 Range/Units 14:05 14:05 WBC (3.5-10.8) 10^3/ul RBC (4.0-5.4) 10^6/ul Hgb (14.0-18.0) g/dl Hct (42-52) % MCV (80-94) fL MCH (27-31) pg MCHC (31-36) g/dl RDW (10.5-15) % Plt Count (150-450) 10^3/ul MPV (7.4-10.4) um3 Neut % (Auto) (38-83) % Lymph % (Auto) (25-47) % [place] % (Auto) (1-9) % Eos % (Auto) (0-6) % Baso % (Auto) (0-2) % Absolute Neuts (auto) (1.5-7.7) 10^3/ul Absolute Lymphs (auto) (1.0-4.8) 10^3/ul Absolute Monos (auto) (0-0.8) 10^3/ul Absolute Eos (auto) (0-0.6) 10^3/ul Absolute Basos (auto) (0-0.2) 10^3/ul Absolute Nucleated RBC 10^3/ul Nucleated RBC % INR (Anticoag Therapy) (0.89-1.11) APTT (26.0-36.3) seconds Sodium (133-145) mmol/L Potassium (3.5-5.0) mmol/L Chloride (101-111) mmol/L Carbon Dioxide (22-32) mmol/L Anion Gap (2-11) mmol/L BUN (6-24) mg/dL Creatinine (0.67-1.17) mg/dL Est GFR ( Amer) (>60) Est GFR (Non-Af Amer) (>60) BUN/Creatinine Ratio (8-20) Glucose (70-100) mg/dL Lactic Acid 1.1 (0.5-2.0) mmol/L Calcium (8.6-10.3) mg/dL Magnesium (1.9-2.7) mg/dL Total Bilirubin (0.2-1.0) mg/dL AST (13-39) U/L ALT (7-52) U/L Alkaline Phosphatase (34-104) U/L Ammonia 23 (16-53) mol/L Total Creatine Kinase (10-223) U/L CK-MB (CK-2) (0.6-6.3) ng/mL Troponin I (<0.04) ng/mL C-Reactive Protein (< 5.00) mg/L B-Natriuretic Peptide 76 ( - 100) pg/mL Total Protein (6.4-8.9) g/dL Albumin (3.2-5.2) g/dL Globulin (2-4) g/dL Albumin/Globulin Ratio (1-3) Lipase (11.0-82.0) U/L TSH (0.34-5.60) mcIU/mL Acetaminophen mcg/mL Serum Alcohol (<10) mg/dL Assess/Plan/Problems-Billing Assessment: 80 yo M with h/o severe COPD, leg edema and priror leg wounds, A. 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 wishes for pt to be comfort care. - Patient Problems (1) Chronic respiratory failure Comment: Secondary to COPD Requires chronic supp O2 at 2 L and chronic prednisone therapy (2) Rash Comment: dry, scaly rash on trunk and LE's - suspect tinea corporis. cont clotrimazole cream (3) CKD (chronic kidney disease) Comment: at baseline, due to DM (4) Diabetes Comment: Will continue usual home dose of Lantus (5) Afib Comment: Rate controlled Continue Cardizem cont home Xarelto (6) Leg edema Comment: b/l chronic, cont Lasix and zaroxolyn at home doses (7) Comfort measures only status Comment: Pt and reguests comfort care. Palliative care consult pending. cont DNR (8) Suicidal thoughts Comment: As per pt's family. apparently pt had been voicing suicidal thoughts prior om admission. As per d/w Dr. Joseph no further tx needed. Status and Disposition: Inpatient. Pd/c to [facility] -most likely tomorrow.
[2016-11-12] MEDS: Rivaroxaban TAB(*) 15 MG PO SCH (17:59)
[2016-11-12] MEDS: Insulin GLARGINE(*) 1 UNITS UNIT SUBCUT SCH (17:59)
[2016-11-12] MEDS ORDERED: Albuterol/Ipratropium NEB.SOL* Albuterol 2.5 MG/Ipratropium 0.5 MG 3 ML INH PRN (20:39)
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
[2016-11-12] MEDS: traZODone TAB* 50 MG TAB PO PRN (22:05)
[2016-11-12] MEDS: Terazosin CAP* 5 MG PO SCH (22:05)
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
[2016-11-13] MEDS: predniSONE TAB* 10 MG PO SCH (08:02)
[2016-11-13] MEDS: Bumetanide TAB* 1 MG PO SCH (08:02)
[2016-11-13] MEDS: Metolazone TAB* 5 MG PO SCH (08:02)
[2016-11-13] MEDS: Diltiazem CD CAP* 240 MG PO SCH (08:02)
[2016-11-13] MEDS: Docusate CAP* 100 MG PO SCH (08:02)
[2016-11-13] MEDS: Allopurinol TAB* 100 MG PO SCH (08:02)
[2016-11-13] MEDS: Potassium Chlor TAB* 20 MEQ TAB.ER PO SCH (08:02)
[2016-11-13] MEDS: Polyethylene Glycol 3350* 17 GM PACKET PO SCH (08:02)
[2016-11-13] MEDS: Magnesium Oxide TAB* 400 MG PO SCH (08:02)
[2016-11-13] MEDS: Furosemide TAB* 40 MG PO SCH (08:02)
[2016-11-13] MEDS: Clotrimazole 1% CREAM* 45 GM TOPICAL SCH (08:15)
[2016-11-13] MEDS: Fluticasone NASAL SPRAY 50MCG* 16 gm SPRAY BTL BOTH NARES SCH (08:16)
[2016-11-13 09:16] VITALS: BP 126/66
== END 2016-11-13 09:15 | DRG 607 ==
LOC: ED 12:46 → MED 16:00
PROVIDERS: ADMIT Internal Medicine; ATTEND Hospitalist
DX: B35.4 Tinea corporis (principal); J96.10 Chronic respiratory failure, unspecified whether with hypoxia or hypercapnia; F03.91 Unspecified dementia, unspecified severity, with behavioral disturbance; I50.30 Unspecified diastolic (congestive) heart failure; R45.851 Suicidal ideations; J44.9 Chronic obstructive pulmonary disease, unspecified; Z51.5 Encounter for palliative care; I48.91 Unspecified atrial fibrillation; I12.9 Hypertensive chronic kidney disease with stage 1 through stage 4 chronic kidney disease, or unspecified chronic kidney disease; J45.909 Unspecified asthma, uncomplicated; G47.33 Obstructive sleep apnea (adult) (pediatric); N40.0 Benign prostatic hyperplasia without lower urinary tract symptoms; E11.22 Type 2 diabetes mellitus with diabetic chronic kidney disease; N18.3 Chronic kidney disease, stage 3 (moderate); M10.9 Gout, unspecified; I73.9 Peripheral vascular disease, unspecified; K21.9 Gastro-esophageal reflux disease without esophagitis; H91.90 Unspecified hearing loss, unspecified ear; F43.29 Adjustment disorder with other symptoms; Z87.01 Personal history of pneumonia (recurrent); Z86.718 Personal history of other venous thrombosis and embolism; Z88.1 Allergy status to other antibiotic agents; Z99.3 Dependence on wheelchair; Z91.81 History of falling; Z99.89 Dependence on other enabling machines and devices; Z99.81 Dependence on supplemental oxygen; Z66 Do not resuscitate; Z68.30 Body mass index [BMI] 30.0-30.9, adult; Z88.0 Allergy status to penicillin; Z88.2 Allergy status to sulfonamides; Z79.4 Long term (current) use of insulin; Z79.01 Long term (current) use of anticoagulants
CPT/HCPCS: 36415; 70450; 71010; 80053; 80320; 80329; 81003; 81015; 82140; 82375; 82550; 82553; 83605; 83690; 83735; 83880; 84443; 84484; 85025; 85610; 85730; 86140; 87040; 87086; 93005; 94640; 94760; A9270-GY; G0480; J7512

== ENCOUNTER 2018-05-05 11:21 | Day surgery (SDC) | payer MEDICARE ==
[~2018-05-05 11:21] MED LIST: Acetaminophen TAB* 325 MG PO PRN; Buffered Lidocaine 0.9% SYRIN* 5 ML/SYR SYRINGE INTRADERM ONE
[2018-05-05] MEDS ORDERED: Cyclopentolate 1% OPTH.SOL* 2 ML BTL ONE (14:34)
[2018-05-05] MEDS ORDERED: Lidocaine 1%* 5 ML VIAL ONE (14:34)
[2018-05-05] MEDS ORDERED: Tetracaine 0.5% OPTH.SOL 4 ML* 1 DROP BTL ONE (14:34)
[2018-05-05] MEDS ORDERED: Neomycin/Polymy/Dex OPHTH.OIN* 3.5 GM ONE (14:34)
[2018-05-05] MEDS ORDERED: Phenylephrine 2.5% OPTH.SOL* 2 ML BTL ONE (14:34)
[2018-05-05] MEDS ORDERED: Tropicamide 1% OPTH.SOL* BTL ONE (14:34)
[2018-05-05] MEDS ORDERED: Ketorolac 0.5% OPHTH (NF) 0.5 % 5 ML BTL ONE (14:34)
[2018-05-05] MEDS ORDERED: Povidone Iodine 5% OPTH* 30 ML BTL ONE (14:34)
[2018-05-05] MEDS ORDERED: acetaZOLAMIDE TAB* 250 MG ONE (14:34)
[2018-05-05] MEDS ORDERED: Metoprolol Tartrate IV* 1 MG/ML 5 ML VIAL ONE (15:45)
[2018-05-05] MEDS ORDERED: Dexmedetomidine* 200 MCG/2 ML 2 ML VIAL ONE (15:45)
[2018-05-05 16:20] VITALS: BP 119/64
--- NOTE | 2018-05-06 02:06 | OP ---
DATE OF OPERATION: 05/05/18 - [facility] DATE OF : 31 SURGEON: Damián Tubbs MD ANESTHESIA: Monitored anesthesia care. PRE-OP DIAGNOSIS: Cataract, right eye. POST-OP DIAGNOSIS: Cataract, right eye. OPERATIVE PROCEDURE: Extracapsular cataract extraction of the right eye with intraocular lens implant. IMPLANTS: SN60WF 22.5 diopter lens to the right eye. COMPLICATIONS: None. DESCRIPTION OF PROCEDURE: The patient was given phenylephrine 2.5% and cyclopentolate 1% eye drops in the operative eye in the preoperative area. The patient was taken to the operating room, where a time-out was taken to identify the correct patient, site, and side of surgery. The patient's right eye was prepped and draped in the usual sterile fashion with 5% Betadine. A second time -out was taken to verify the correct patient, site, and side of surgery and correct lens implant. A lid speculum was placed to the right eye. A 1-mm paracentesis blade was used to make a clear corneal incision in the superotemporal position. Preservative-free 1% lidocaine was injected into the anterior chamber. DisCoVisc was then injected into the anterior chamber. A 2.75-mm keratome blade was used to make a triplanar incision at the inferotemporal position. A Malyugin ring was then inserted due to poor pupil dilation and evidence of floppy iris syndrome. A cystotome initiated a capsulorrhexis, which was completed with Utrata forceps in a continuous and curvilineal manner. Hydrodissection of the lens was performed with BSS on a cannula. The lens could be spun in the capsular bag. The phacoemulsification handpiece was used with a [id number] technique to remove the nucleus. The I/A handpiece then removed the residual cortical lens material. DisCoVisc was then injected to inflate the capsular bag. The planned SN60WF 22.5 diopter lens was injected into the capsular bag. The Malyugin ring was then removed from the eye with a [place] technique. The residual DisCoVisc was removed from the eye with the I/A handpiece. With removal of the I/A handpiece and the iris had a tendency for a prolapse to the main incision; therefore, a single 10 - 0 nylon suture was placed at the main incision. The corneal incisions were hydrated and no leaks occurred at physiologic pressure around 20 mmHg per palpation. The lid speculum was removed and drapes removed. Maxitrol ointment was placed to the surface of the operative eye. An adhesive patch and shield were then placed on the operative eye. The patient was taken to the postoperative area in stable condition. [id number]/[facility] #: [id number] HILDA
== END 2018-05-05 16:30 | disposition home or self-care (01) ==
LOC: OREAST 11:21
PROVIDERS: ATTEND Student in an Organized Health Care Education/Training Program
DX: H25.11 Age-related nuclear cataract, right eye (principal); H21.81 Floppy iris syndrome; E11.3293 Type 2 diabetes mellitus with mild nonproliferative diabetic retinopathy without macular edema, bilateral; Z79.4 Long term (current) use of insulin; I48.91 Unspecified atrial fibrillation; Z79.01 Long term (current) use of anticoagulants; F41.8 Other specified anxiety disorders; J44.9 Chronic obstructive pulmonary disease, unspecified; Z99.81 Dependence on supplemental oxygen; N18.3 Chronic kidney disease, stage 3 (moderate)
CPT/HCPCS: A9270-GY; J3490; V2632